=== PATIENT | female | born 1995 | race Caucasian/White ===

== ENCOUNTER → 2018-02-28 18:03 | Outpatient (CLI) | payer MEDICAID, SELFPAY ==
[2018-02-28 20:03] LABS: Chlamydia Trachomatis by PCR Negative (Negative); Neisserai gonorrhoeae by PCR Negative (Negative); Probe Check PASS; Sample Adequacy Control PASS; Specimen Processing Control PASS
== END ==
PROVIDERS: Visit Provider Obstetrics & Gynecology
DX: Z11.3 Encounter for screening for infections with a predominantly sexual mode of transmission (principal); Z34.81 Encounter for supervision of other normal pregnancy, first trimester
CPT/HCPCS: 87491; 87591

== ENCOUNTER → 2018-04-10 16:53 | Outpatient (CLI) | payer MEDICAID, SELFPAY ==
[2018-04-10 17:35] LABS: Color, Urine Yellow (Yellow); Glucose, Dipstick Normal (Normal); Ketone-Dipstick 5 mg/dl (Negative); Leukocyte Esterase-Dipstick 25 /ul (Negative); Nitrite-Dipstick Negative (Negative); Occult Blood-Urine Negative /ul (Negative); Protein-Dipstick 15 mg/dl (Negative); Urine Bilirubin Dipstick Negative (Negative); Urine Clarity Clear (Clear); Urine Urobilinogen Normal (Normal)
[2018-04-10 17:39] LABS: Absolute Lymphocyte Count 2.24 X10^3/ul (0.83-4.51); Absolute Neutrophil Count 11.8 X10^3/uL (2.0-7.7); Basophil# 0.01 X10^3/uL; Basophil% 0.1 % (0-1); Eosinophil# 0.11 X10^3/uL; Eosinophils% 0.7 % (0-5); Hematocrit 42.4 % (37-47); Hemoglobin 14.8 g/dl (12.0-15.0); Lymphocyte # 2.24 X10^3/ul (4.0); Lymphocyte % 14.7 % (19-41); Mean Corp Hgb Conc 34.9 g/gl (32-36); Mean Corpuscular Hgb 31.8 pg (27.0-32.0); Mean Corpuscular Volume 91.2 fL (81-99); Mean Platelet Vol. 9.4 fl (6.2-12.0); Monocyte# 1.04 X10^3/uL; Monocyte% 6.8 % (0-10); Neutrophil # 11.82 X10^3/uL (2.7-7.7); Neutrophil % 77.2 % (47-70); Platelet Count 302 K/mm3 (150-450); RBC Distribution Width CV 11.6 % (11.6-14.6); RBC Distribution Width SD 38.4 fl (35.1-43.9); Red Blood Count 4.65 M/mm3 (4.2-5.4); White Blood Count 15.3 K/mm3 (4.4-11.0)
[2018-04-10 17:44] LABS: COTININE Drug Screen Positive (<200 ng/mL)
[2018-04-10 17:45] LABS: POSITIVE COUNT NO; POSITIVE DIFFERENTIAL NO; POSITIVE MORPHOLOGY NO
[2018-04-10 17:58] LABS: Thyroid Stim Hormone (TSH) 0.48 uIU/mL (0.358-3.74)
[2018-04-10 17:59] LABS: Amphetamine Urine VISTA NEGATIVE (<1000 ng/mL); Barbiturate Urine VISTA NEGATIVE (< 200 ng/mL); Benzodiazepine Urine VISTA NEGATIVE (< 200 ng/mL); Cocaine Urine VISTA NEGATIVE (< 300 ng/mL); Ecstacy Urine VISTA NEGATIVE (< 500 ng/mL); Methadone Urine VISTA NEGATIVE (< 300 ng/mL); PCP Urine VISTA NEGATIVE (< 25 ng/mL); THC Urine VISTA NEGATIVE (< 50 ng/mL); Vista UDS pH Range 5
[2018-04-10 18:39] LABS: HIV - WCH Non-Reactive (Nonreactive); Rubella IgG 188.8 IU/mL
[2018-04-12 11:59] LABS: HEPATITIS B SURFACE AG Negative (Negative); Hep C Antibodies 0.1 s/co ratio (0.0-0.9)
[2018-04-14 01:01] LABS: Prenatal RPR NONREACTIVE (NONREACTIVE)
== END ==
PROVIDERS: Visit Provider Obstetrics & Gynecology
DX: Z34.82 Encounter for supervision of other normal pregnancy, second trimester (principal)
CPT/HCPCS: 36415; 80307; 81002; 84443; 85025; 86703; 86762; 86803; 87340

== ENCOUNTER → 2018-07-31 15:36 | Outpatient (CLI) | payer MEDICAID, SELFPAY ==
[2017-05-24 09:50] VITALS: BMI 23.1
[2018-07-31 17:02] LABS: Hematocrit 42.8 % (37-47); Hemoglobin 14.9 g/dl (12.0-15.0); Mean Corp Hgb Conc 34.8 g/gl (32-36); Mean Corpuscular Hgb 32.3 pg (27.0-32.0); Mean Corpuscular Volume 92.8 fL (81-99); Mean Platelet Vol. 9.8 fl (6.2-12.0); Platelet Count 271 K/mm3 (150-450); Red Blood Count 4.61 M/mm3 (4.2-5.4); White Blood Count 18.9 K/mm3 (4.4-11.0)
[2018-07-31 17:03] LABS: Scan Indicated on CBC? Y/N NO
[2018-07-31 17:15] LABS: Glucose Challenge Gest 1H 50g 87 mg/dL (70-140)
== END ==
PROVIDERS: PCP Student in an Organized Health Care Education/Training Program; Visit Provider Obstetrics & Gynecology
DX: Z34.83 Encounter for supervision of other normal pregnancy, third trimester (principal)
CPT/HCPCS: 36415; 82950; 85027

== ENCOUNTER → 2018-09-14 09:40 | Outpatient (CLI) | payer MEDICAID, SELFPAY ==
[2017-05-24 09:50] VITALS: BMI 23.1
[2018-09-14 12:49] LABS: Hematocrit 45.8 % (37-47); Hemoglobin 15.3 g/dl (12.0-15.0); Mean Corp Hgb Conc 33.4 g/gl (32-36); Mean Corpuscular Hgb 31.4 pg (27.0-32.0); Mean Corpuscular Volume 93.9 fL (81-99); Mean Platelet Vol. 10.5 fl (6.2-12.0); Platelet Count 248 K/mm3 (150-450); RBC Distribution Width CV 12.5 % (11.6-14.6); RBC Distribution Width SD 42.2 fl (35.1-43.9); Red Blood Count 4.88 M/mm3 (4.2-5.4); White Blood Count 16.7 K/mm3 (4.4-11.0)
[2018-09-14 12:51] LABS: Scan Indicated on CBC? Y/N NO
[2018-09-14 12:55] LABS: Protein, Urine (Random) 15.4 mg/dL (<11.9)
[2018-09-14 13:04] LABS: ALB/GLOB Ratio 0.8 RATIO (0.9-2.4); AST(SGOT) 19 U/L (15-37); Alanine Aminotransfer ALT/SGPT 19 U/L (13-56); Albumin, Serum 3.1 g/dL (3.2-5.0); Alkaline Phosphatase 198 U/L (45-117); Anion Gap 10 (5-15); BUN 10 mg/dL (7-18); BUN/Creat Ratio 15.6 RATIO (10-20); Calcium,Total 8.9 mg/dL (8.5-10.1); Chloride 107 mmol/L (98-107); Creatinine, Serum 0.64 mg/dL (0.55-1.02); EST Glomerular Filtration Rate 124 mL/min (>60); Est Glom Filt Rate - Afr Amer 150 mL/min (>60); Globulin 4.1 g/dL (2.2-4.2); Glucose 91 mg/dL (74-106); LDH 226 U/L (84-246); Potassium 3.7 mmol/L (3.5-5.1); Protein, Total 7.2 g/dL (6.4-8.2); Sodium Level 137 mmol/L (136-145); Uric Acid 6.2 mg/dL (2.6-6.0)
--- OUTSIDE RECORDS SUMMARY | 2018-11-18 23:26 | XMS RPT_ITS ---
:1995 Author Organization OHIP Care Team Providers Name Role Phone Janell Zuñiga Attending Unavailable Janell Zuñiga Attending Unavailable Janell Zuñiga Referring Unavailable Janell Zuñiga Attending Unavailable Zara Summer Attending Unavailable PROBLEMS PROBLEMS DATE TYPE CONDITION / CODE ATTENDING STATUS SOURCE 09/14/2018 Unknown Z36.85 - Encounter Kulwinder Zuñiga for [facility] screening for Hospital Streptococcus B / Repository Z36.85(ICD-10) 09/14/2018 Unknown R03.0 - Elevated Kulwinder Zuñiga blood-pressure [facility] reading, without Hospital diagnosis of Repository hypertension / R03.0(ICD-10) 04/10/2018 Unknown Z34.82 - Encounter Kulwinder Zuñiga for supervision of [facility] other normal Hospital , second Repository trimester / Z34.82(ICD-10) PROCEDURES PROCEDURES No Procedure Records FoundRESULTS RESULTS CBC-COMPLETE BLOOD CNT Collected: 09/14/2018 Status: F Source: ROX NO DIFF 9:42 AM [facility] HOSPITAL REPOSITORY TYPE CODE TESTS RESULT OUT OF RANGE REFERENCE UNITS LAB L100.1000 4.4-11.0 K/mm3 High WBC 16.7 LAB L100.1200 4.2-5.4 M/mm3 Normal RBC 4.88 LAB L100.1300 12.0-15.0 g/dl High HGB 15.3 LAB L100.1400 37-47 % Normal HCT 45.8 LAB L100.1500 81-99 fL Normal MCV 93.9 LAB L100.1600 27.0-32.0 pg Normal MCH 31.4 LAB L100.1700 32-36 g/gl Normal MCHC 33.4 LAB L100.1810 11.6-14.6 % Normal RDW CV 12.5 LAB L100.1820 35.1-43.9 fl Normal RDW SD 42.2 LAB L100.1900 150-450 K/mm3 Normal PLT 248 LAB L100.2000 6.2-12.0 fl Normal MPV 10.5 Performed By: #### L100.0500 #### [facility] [place], [address] COMPREHENSIVE METABOLIC Collected: 09/14/2018 Status: F Source: [facility] 9:42 AM [facility] REPOSITORY Order Comment: Comments: RANDOM Serial Specimen #1, #2 or #3? 1 TYPE CODE TESTS RESULT OUT OF RANGE REFERENCE UNITS LAB L501.0100 74-106 mg/dL Normal GLU 91 Result Comment: Please note revised GLUCOSE reference range effective 2017. LAB L501.1000 7-18 mg/dL Normal BUN 10 LAB L501.1100 0.55-1.02 mg/dL Normal CREAT,SERUM 0.64 Result Comment: The validity of the calculated GFR AND GFRAA in patients over 70 years has not been determined. Clinical correlation is essential. LAB L501.1110 >60 mL/min Normal EST GFR 124 Result Comment: Non- GFR Calc LAB L501.1115 >60 mL/min Normal EST GFR - AA 150 Result Comment: GFR Calc LAB L501.1300 10-20 RATIO Normal BUN/CRE 15.6 LAB L501.1500 6.4-8.2 g/dL T Normal PROT 7.2 LAB L501.1800 3.2-5.0 g/dL Low ALB 3.1 LAB L501.1950 2.2-4.2 g/dL Normal GLOB 4.1 LAB L501.2000 0.9-2.4 RATIO Low A/G 0.8 LAB L501.2200 8.5-10.1 mg/dL CA Normal 8.9 LAB L501.4100 15-37 U/L Normal AST 19 LAB L501.4305 45-117 U/L High ALK P 198 LAB L501.4405 13-56 U/L Normal ALT 19 LAB L501.4600 0.20-1.00 mg/dL T Normal BILI 0.30 LAB L501.5300 136-145 mmol/L NA Normal 137 LAB L501.5600 3.5-5.1 mmol/L K Normal 3.7 LAB L501.5900 98-107 mmol/L CL Normal 107 LAB L501.6100 21.0-32.0 mmol/L Low CO2 20.0 LAB L501.6200 5-15 Normal GAP 10 Performed By: #### L500.4050, L501.1400, L504.2610 #### [facility] [address] [facility] [address] URIC ACID Collected: 09/14/2018 Status: F Source: [place] 9:42 AM [facility] REPOSITORY Order Comment: Comments: RANDOM Serial Specimen #1, #2 or #3? 1 TYPE CODE TESTS RESULT OUT OF RANGE REFERENCE UNITS LAB L501.1400 2.6-6.0 mg/dL High URIC 6.2 Result Comment: The drugs N-Acetylcysteine and Metamizole may falsely depress this assay. Performed By: #### L500.4050, L501.1400, L504.2610 #### [facility] [address] [facility] [address] LDH Collected: 09/14/2018 Status: F Source: [place] 9:42 AM [facility] REPOSITORY Order Comment: Comments: RANDOM Serial Specimen #1, #2 or #3? 1 TYPE CODE TESTS RESULT OUT OF RANGE REFERENCE UNITS LAB L504.2610 84-246 U/L Normal LDH 226 Performed By: #### L500.4050, L501.1400, L504.2610 #### [facility] [address] [facility] [address] CREATININE, URINE Collected: 09/14/2018 Status: F Source: ROX (RANDOM) 9:30 AM [facility] REPOSITORY TYPE CODE TESTS RESULT OUT OF RANGE REFERENCE UNITS LAB L501.1200 NO RANGE EST. mg/dL Normal UR CREAT 104.00 Performed By: #### L501.1200, L501.1930 #### [facility] [address] [place], [address] PROTEIN, URINE Collected: 09/14/2018 Status: F Source: ROX (RANDOM) 9:30 AM [facility] REPOSITORY TYPE CODE TESTS RESULT OUT OF RANGE REFERENCE UNITS LAB L501.1930 <11.9 mg/dL High 15.4 PROTEIN,UR.R AN. Performed By: #### L501.1200, L501.1930 #### [facility] [address] [place], [address] Observed: 09/14/2018 Status: F Source: ROX CULTURE, GROUP B 9:15 AM [facility] STREPTOCOCCUS REPOSITORY Comments: VAGINAL/RECTAL KAYLYNN Culture Group B Beta Streptococcus is not isolated. Performed By: #### M100.1800 #### [facility] [address] [place], [address] CBC-COMPLETE BLOOD CNT Collected: 07/31/2018 Status: F Source: ROX NO DIFF 3:45 PM [facility] REPOSITORY TYPE CODE TESTS RESULT OUT OF RANGE REFERENCE UNITS LAB L100.1000 4.4-11.0 K/mm3 High WBC 18.9 LAB L100.1200 4.2-5.4 M/mm3 Normal RBC 4.61 LAB L100.1300 12.0-15.0 g/dl Normal HGB 14.9 LAB L100.1400 37-47 % Normal HCT 42.8 LAB L100.1500 81-99 fL Normal MCV 92.8 LAB L100.1600 27.0-32.0 pg High MCH 32.3 LAB L100.1700 32-36 g/gl Normal MCHC 34.8 LAB L100.1810 11.6-14.6 % Normal RDW CV 12.0 LAB L100.1820 35.1-43.9 fl Normal RDW SD 40.0 LAB L100.1900 150-450 K/mm3 Normal PLT 271 LAB L100.2000 6.2-12.0 fl Normal MPV 9.8 Performed By: #### L100.0500 #### [facility] [address] [place], [address] GLUCOSE CHALLENGE GEST Collected: 07/31/2018 Status: F Source: ROX 1H 50G 3:45 PM [facility] REPOSITORY TYPE CODE TESTS RESULT OUT OF RANGE REFERENCE UNITS LAB L501.0250 70-140 mg/dL Normal GLU GEST 87 50g 1H Performed By: #### L501.0250 #### [facility] [address] [place] [place], [address] URINE DRUG SCREEN Collected: 04/10/2018 Status: F Source: ROX (VISTA) 4:57 PM [facility] REPOSITORY Order Comment: List of Drugs Taken or Suspected? UNK TYPE CODE TESTS RESULT OUT OF RANGE REFERENCE UNITS LAB L505.0075 TO BE Normal CONFIRMED Result Comment: CONFIRMATORY TESTING FOR ALL POSITIVE URINE DRUG SCREEN RESULTS WILL ONLY BE SENT OUT UPON PHYSICIAN ORDER. VISTA Urine Drug Screen methods provide only preliminary analytical test results. A more specific alternate chemical method must be used in order to obtain a confirmed analytical result. Gas chromatography/mass spectrometery (GC/MS) is the preferred confirmatory method. Clinical consideration and professional judgement should be applied to any drug of abuse test result, particularly when preliminary positive results are used. URINE TCA TESTING MUST BE ORDERED SEPARATELY. USE TEST MNEMONIC: [facility] LAB L505.5005 VISTA UDS PH 5 Normal LAB L505.5015 <1000 ng/mL AMPHETAMINES Normal NEGATIVE LAB L505.5025 < 200 ng/mL BARBITIURATES Normal NEGATIVE LAB L505.5035 < 200 ng/mL BENZODIAZIPINE Normal NEGATIVE LAB L505.5045 < 300 ng/mL COCAINE Normal NEGATIVE LAB L505.5055 < 500 ng/mL ECSTACY Normal NEGATIVE LAB L505.5065 < 300 ng/mL METHADONE Normal NEGATIVE LAB L505.5075 < 300 ng/mL OPIATES Normal NEGATIVE LAB L505.5085 < 25 ng/mL PCP Normal NEGATIVE LAB L505.5095 < 50 ng/mL THC Normal NEGATIVE Performed By: #### L505.5000, L505.6240 #### [facility] [address] [place], [place], [address] NICOTINE URINE DRUG Collected: 04/10/2018 Status: F Source: ROX SCREEN 4:57 PM [facility] REPOSITORY Order Comment: List of Drugs Taken or Suspected? UNK TYPE CODE TESTS RESULT OUT OF RANGE REFERENCE UNITS LAB L505.6250 TO BE Normal CONFIRMED Result Comment: CONFIRMATORY TESTING FOR ALL POSITIVE URINE DRUG SCREEN RESULTS WILL ONLY BE SENT OUT UPON PHYSICIAN ORDER. The results of Urine Drug Screen methods provide only preliminary analytical test results. A more specific alternate chemical method must be used in order to obtain a confirmed analytical result. Gas chromatography/mass spectrometery (GC/MS) is the preferred confirmatory method. Clinical consideration and professional judgement should be applied to any drug of abuse test result, particularly when preliminary positive results are used. LAB L505.6270 <200 ng/mL High COT DRG Positive SCREEN Result Comment: Cotinine is the first-stage metabolite of Nicotine. Performed By: #### L505.5000, L505.6240 #### [facility] [address] [place], [place], [address] URINALYSIS, ROUTINE Collected: 04/10/2018 Status: F Source: ROX (DIPSTICK) 4:57 PM [facility] REPOSITORY Order Comment: How was Urine Obtained? Urine, Random TYPE CODE TESTS RESULT OUT OF RANGE REFERENCE UNITS LAB L400.3000 Yellow COLOR Normal Yellow LAB L400.3050 Clear Normal CLARITY Clear LAB L400.3200 Normal mg/dl Normal GLUCOSE, UR Normal LAB L400.3300 Negative mg/dL Normal BILIRUBIN URINE Negative LAB L400.3400 Negative mg/dl High 5 KETONE UR LAB L400.3465 1.002-1.030 Normal SP.GR. DIPSTX 1.020 LAB L400.3550 5.0 - 8.0 pH UR Normal 6.0 LAB L400.3600 Negative mg/dl High PROT 15 DIPSTX LAB L400.3700 Normal mg/dl Normal UROBILI Normal LAB L400.3750 Negative Normal NITRITE UR Negative LAB L400.3780 Negative /ul Normal OCCULT BLOOD-UR Negative LAB L400.3800 Negative /ul High LEUK 25 ESTERASE Performed By: #### L400.2010 #### [facility] [address] [place], [place], [address] CBC W/DIFF, AUTOMATED Collected: 04/10/2018 Status: F Source: [place] 4:57 PM [facility] REPOSITORY TYPE CODE TESTS RESULT OUT OF RANGE REFERENCE UNITS LAB L100.1000 4.4-11.0 K/mm3 High WBC 15.3 LAB L100.1200 4.2-5.4 M/mm3 Normal RBC 4.65 LAB L100.1300 12.0-15.0 g/dl Normal HGB 14.8 LAB L100.1400 37-47 % Normal HCT 42.4 LAB L100.1500 81-99 fL Normal MCV 91.2 LAB L100.1600 27.0-32.0 pg Normal MCH 31.8 LAB L100.1700 32-36 g/gl Normal MCHC 34.9 LAB L100.1810 11.6-14.6 % Normal RDW CV 11.6 LAB L100.1820 35.1-43.9 fl Normal RDW SD 38.4 LAB L100.1900 150-450 K/mm3 Normal PLT 302 LAB L100.2000 6.2-12.0 fl Normal MPV 9.4 LAB L100.2100 47-70 % High NEUT% 77.2 LAB L100.2200 19-41 % Low LY% 14.7 LAB L100.2300 0-10 % Normal MONO% 6.8 LAB L100.2400 0-5 % Normal EO% 0.7 LAB L100.2500 0-1 % Normal BASO% 0.1 LAB L100.2550 0.0-0.9 % Normal IM GRAN % 0.500 Result Comment: IG% - Immature Granulocytes (promyelocytes, myelocytes and metamyelocytes) > 1% indicates that a LEFT SHIFT is Present. LAB L100.2620 2.0-7.7 X10 3/uL High Absolute Neut 11.8 LAB L100.2720 0.83-4.51 X10 3/ul Normal Absolute Lymph 2.24 Performed By: #### L100.0100 #### [facility] [address] [place], [address] THYROID STIM HORMONE Collected: 04/10/2018 Status: F Source: ROX (TSH) 4:57 PM [facility] REPOSITORY TYPE CODE TESTS RESULT OUT OF RANGE REFERENCE UNITS LAB L501.9520 0.358-3.74 uIU/mL Normal TSH 0.48 Performed By: #### L501.9520 #### [facility] [address] [place], [address] RUBELLA IGG Collected: 04/10/2018 Status: F Source: ROX 4:57 PM [facility] REPOSITORY TYPE CODE TESTS RESULT OUT OF RANGE REFERENCE UNITS LAB L509.4000 IU/mL Normal Rubella IgG 188.8 Result Comment: Antibody results Interpretation of Immune Status < 5 IU/ml Presumed Non-immune 5 - < 10 IU/ml Equivocal > or = 10 IU/ml Presumed Immune Performed By: #### L509.4000, L3890.6005 #### [facility] [address], [address] HIV - [facility] Collected: 04/10/2018 Status: F Source: [place] 4:57 PM [facility] REPOSITORY TYPE CODE TESTS RESULT OUT OF RANGE REFERENCE UNITS LAB L3890.6005 Nonreactive Normal HIV - [facility] Non-Reactive Performed By: #### L509.4000, L3890.6005 #### [facility] [address] [place], [address] T AND S-NO Collected: 04/10/2018 Status: F Source: ROX CHARGE W/PNP 4:57 PM [facility] REPOSITORY Order Comment: Reason for Type AND Screen/Red Cells: Surgery? N TYPE CODE TESTS RESULT OUT OF RANGE REFERENCE UNITS LAB B10.0800 A Normal BLOOD POSITIVE TYPE GEL LAB B100.4050 Normal Ab SCREEN NEGATIVE GEL Performed By: #### B100.7550 #### [facility] [address] [place], [address] HEPATITIS B SURFACE Collected: 04/10/2018 Status: F Source: ROX AG 4:57 PM [facility] REPOSITORY TYPE CODE TESTS RESULT OUT OF RANGE REFERENCE UNITS LAB L3100.0400 Negative Normal HB Negative SURF AG Result Comment: Performed at: - [facility], [place], [place] [id number] Electrical Instrument Technician: Donnie Lindsey PhD, Phone: [phone] Performed By: #### L3100.0390, L3100.0625 #### [facility] (refer to report for specific site) refer to report for address and phone number HEPATITIS C ANTIBODIES Collected: 04/10/2018 Status: F Source: [place] 4:57 PM [facility] REPOSITORY TYPE CODE TESTS RESULT OUT OF RANGE REFERENCE UNITS LAB L3100.0650 0.0-0.9 s/co ratio Normal HEP C AB 0.1 Result Comment: Negative: < 0.8 Indeterminate: 0.8 - 0.9 Positive: > 0.9 The CDC recommends that a positive HCV antibody result be followed up with a HCV Nucleic Acid Amplification test ([id number]). Performed By: #### L3100.0390, L3100.0625 #### [facility] (refer to report for specific site) refer to report for address and phone number RPR Collected: 04/10/2018 Status: F Source: [place] 4:57 PM [facility] REPOSITORY TYPE CODE TESTS RESULT OUT OF REFERENCE UNITS RANGE LAB L700.5100 NONREACTIVE Normal RPR NONREACTIVE Performed By: #### L700.5100 #### [facility] [address] [place], [place], [address] CT/NG [facility] BY PCR Collected: 02/28/2018 Status: F Source: [place] 2:48 PM [facility] REPOSITORY TYPE CODE TESTS RESULT OUT OF RANGE REFERENCE UNITS LAB L8200.2100 Negative Normal Chlam Negative Trac PCR LAB L8200.2200 Negative Normal NG by Negative PCR Performed By: #### L8200.2000 #### [facility] [address] [place], [place], [address] ALLERGIES ALLERGIES DATE TYPE / CODE NAME / CODE REACTION SEVERITY SOURCE 05/24/2017 Drug No Known Unknown [facility] Allergy/4160 Allergies/F00 Hospital [address]135(SNOMED [id number](RXNOR Repository CT) M) ENCOUNTERS ENCOUNTERS ADMIT/DISCHARGE ACCOUNT ADMITTING ENCOUNTER LOCATION SOURCE NUMBER CLASS 09/14/2018 [id number] Ambulatory [place] 0 [facility] ing:WOBLAB Repository 07/31/2018 [id number] [facility] [place] 4 [facility] ing:WOBLAB Repository 04/10/2018 [id number] Ambulatory [place] 4 [facility] ing:WOBLAB Repository 02/28/2018 [id number] Ambulatory [place] 1 [facility] ing:LABSPEC Repository PAYERS PAYERS ENCOUNTER GUARANTOR PAYER SUBSCRIBER SOURCE 09/14/2018 Katlynd Primary [facility] [place] [id number] Insurance:CARESOURCEP SummersDOB[facility] Number: [id number] [id number] Repository [address]Mzu: [phone]) Date:2018-09-14P O [phone] () [address]ATTN: [place] [address]HD: 09/14/2018 Secondary NOT GIVENUNK [place] Insurance:SELF PAY [facility] Number: Effective Repository Date:2018-09-14 07/31/2018 Katlynd Primary Katlynd [place] [id number] Insurance:CARESOURCEP SummersDOB: [facility] Number: [id number], [place] [id number] Repository [address]Ssa: [phone] Date:2018-07-31P O [phone] () [address]ATTN: [place] [address]KJ: 07/31/2018 Secondary NOT GIVENUNK [place] Insurance:SELF PAY [facility] Number: Effective Repository Date:2018-07-31 04/10/2018 Katlynd Primary Katlynd [place] [id number] Insurance:CARESOURCEP SummersDOB: [facility] Number: [id number], [place] [id number] Repository [address]Eiw: [phone] Date:2018-04-10P O [phone] () [address]ATTN: [place] [address]LJ: 04/10/2018 Secondary NOT GIVENUNK [place] Insurance:SELF PAY [facility] Effective Repository Date:2018-04-10 02/28/2018 Ariellelynd Primary Manisha Gagnon [id number] Insurance:CAREURC SummerMOOB: [facility] danielito Number: [id number] [id number] Repository [address]Emk: [phone] Date:2018-02-28P O [phone] () [address]ATTN: [place] [address]MH: 02/28/2018 Secondary NOT GIVENUNK [place] Insurance:SELF PAY [facility] Number: Effective Repository Date:2018-02-28
== END ==
PROVIDERS: Visit Provider Obstetrics & Gynecology
DX: R03.0 Elevated blood-pressure reading, without diagnosis of hypertension (principal); Z36.85 Encounter for antenatal screening for Streptococcus B
CPT/HCPCS: 36415; 80053; 82570; 83615; 84156; 84550; 85027; 87081

== ENCOUNTER 2018-10-06 19:05 | Inpatient (IN) | payer MEDICAID, SELFPAY ==
[2018-10-06] MEDS: Lactated Ringers 1,000 ML 50 ML IV (19:30)
[2018-10-06 19:46] VITALS: BMI 36.3
[2018-10-06] MEDS: Oxytocin 30 units/NS 500 ml 30 UNITS/500 ML IV.SOLN IV (19:58)
[2018-10-06 20:13] LABS: Hematocrit 44.5 % (37-47); Hemoglobin 15.2 g/dl (12.0-15.0); Mean Corp Hgb Conc 34.2 g/gl (32-36); Mean Corpuscular Hgb 31.7 pg (27.0-32.0); Mean Corpuscular Volume 92.7 fL (81-99); Mean Platelet Vol. 10.3 fl (6.2-12.0); Platelet Count 244 K/mm3 (150-450); RBC Distribution Width CV 12.8 % (11.6-14.6); White Blood Count 16.1 K/mm3 (4.4-11.0)
[2018-10-06 20:14] LABS: Scan Indicated on CBC? Y/N NO
--- NOTE | 2018-10-06 20:56 | HP.PCM_ITS ---
- Problem List (1) 39 weeks gestation of Status: Acute (2) Oligohydramnios Status: Acute Qualifiers: Fetus number: single or unspecified fetus Trimester: third trimester Qualified Code(s): O41.03X0 - Oligohydramnios, third trimester, not applicable or unspecified History Date of Admission: 10/06/18 Final KALEE: 10/07/18 Final KALEE Source: [place] <20 weeks Gestational age: 39 Weeks and 6 Days History of this : This is a 22 year-old, G [], P [], at 39 weeks gestational age. Medical History: Medical History (Last Updated 10/06/18 @ 20:57 by Janell Zuñiga MD) Anxiety F41.9 Depression F32.9 Allergies No Known Allergies Allergy (Verified 10/06/18 19:47) Home Medications: Home Medications Tablet 1 tab PO DAILY 10/06/18 Multivitamin 1 tab PO daily; Acetaminophen otc prn Smoking Status: Light Smoker (<10/day) Alcohol: None Number of Fetus(es): 1 Heart Tracin, moderate ariability, + accelerations, no decelerations TOCO Analysis: 0 History Past Pregnancies: Past Pregnancies Delivery Date Name GA/Weeks Outcome Route Weight Gender Labor Length Anesthesia Delivery Location Provider FOB Labs: Mom's Labs & Results 10/06/18 10/06/18 19:30 19:30 WBC 16.1 H RBC 4.80 Hgb 15.2 H Hct 44.5 MCV 92.7 MCH 31.7 MCHC 34.2 RDW 12.8 RDW Differential 43.0 Plt Count 244 MPV 10.3 Blood Type Pending Antibody Screen Pending Course Did the patient receive Yes care? Labs Blood Type: A RH: POSITIVE RPR/VDRL/Syphilis Nonreactive Rubella status Immune HbSAg Negative Date Done: 04/10/18 Chlamydia Negative Gonorrhea Negative HIV/AIDS Non-Reactive Group B Strep: Negative Other Lab Procedures/Results/ urine positive for nicotine 04/10/18 Comments: Current Obstetrical History Gestational Diabetes No Incompetent Cervix No Infertility No IUGR No Macrosomia No Hypertension/Pre-eclampsia No Placenta Previa/Abruption No PTL/PROM No Uterine anomaly No Oligohydramnios Yes Polyhydramnios No Multiple gestation No Past Medical History Asthma No Diabetes No Hypertension No Heart disease No Mitral valve prolapse No Neurologic/Seizure disorder/ No Migraines Kidney disease No Liver disease No Varicosities No Clotting disorders/Hx of DVT No Thyroid Dysfunction No Other medical diseases No Psychiatric disorders No Major trauma No Abnormal PAP smear No Sleep apnea No Mammogram in the last 2 years No Medications Taken During Dose/Freq.: [Tylenol] 500 mg PO x2 Last Date/Time of Medication 10/06/18 @ 0100 Taken: [Tylenol] Reason for taking medication [ pt states taking medication for achs in back and Tylenol] shoulder Social History Marital Status: SINGLE Alleged father Kasi Clancy Hx Smoking Yes Smoking Status Light Smoker (<10/day) Expected Infant Delivery Method: Spontaneous Vaginal Number of Visits: 8 Review of Systems Eyes: Denies: Blurred vision, Vision Change Cardiovascular: Denies: Chest Pain, Edema Gastrointestinal: Denies: Abdominal Pain, Nausea, Vomiting Gynecological: Denies: Vaginal bleeding Neurological: Denies: Headaches Physical Exam Vitals: AVSS General: Alert, Oriented x3, No apparent distress HEENT: Atraumatic, Normocephalic Cardiovascular: Regular rate, Regular Rhythm, Normal S1, Normal S2 Lungs: Clear to auscultation, Normal air movement Abdomen: Soft, Non Tender, Gravid Extremities:: Other - trace LE edema Neurological: Neuro grossly intact PUBLIC ADDRESS SYSTEM OPERATOR: Normal external genitalia Presentation: Cephalic Cervix Dilation (cm): 2.5 - per SRINATH [place]: -3 Effacement (%): 70 Assessment/Plan All Active Problems 39 weeks gestation of (Acute) Oligohydramnios (Acute) This is a 22 year-old, G [1] at 39 weeks gestational age with oligohydramnios, Cat I FHR -Few borderline elevated BPs, patient asx - will continue to monitor -Pitocin for induction -Consents signed -Maternal and statuses reassuring
[2018-10-06 22:15] LABS: Amphetamine Urine VISTA NEGATIVE (<1000 ng/mL); Barbiturate Urine VISTA NEGATIVE (< 200 ng/mL); Benzodiazepine Urine VISTA NEGATIVE (< 200 ng/mL); Cocaine Urine VISTA NEGATIVE (< 300 ng/mL); Ecstacy Urine VISTA NEGATIVE (< 500 ng/mL); Methadone Urine VISTA NEGATIVE (< 300 ng/mL); PCP Urine VISTA NEGATIVE (< 25 ng/mL); THC Urine VISTA NEGATIVE (< 50 ng/mL); Vista UDS pH Range 6
--- NOTE | 2018-10-07 05:30 | PCM.PN.BLA ---
Progress Note LABOR PROGRESS NOTE Manisha has no complaints. AVSS GEN - NAD, AAO x 3 FHR 120, moderate variability, + accelerations, no decelerations TOCO 2/10 min SVE 4/70/-2 A/P: 22yo G1 @ 40wga, IOL for oligohydramnios, Cat I FHR -Continue pitocin as tolerated by mother and fetus -Amniotomy performed with clear fluid @ 0526h, IUPC and ISE placed -Maternal and statuses reassuring
[2018-10-07] MEDS: Nalbuphine 10 MG/ML Ampul IV (06:22)
[2018-10-07] MEDS: Lactated Ringers 1,000 ML 50 ML IV ×3 (07:07→20:50)
[2018-10-07] MEDS: fentaNYL-bupivacaine (epidural) 100 ML BAG EPIDURAL ×4 (07:37→22:49)
--- NOTE | 2018-10-07 09:30 | PCM.PN.BLA ---
Progress Note LABOR PROGRESS NOTE No complanits. Manisha is comfortable with the epidural, denies pain. AVSS GEN - NAD, AAO x 3 FHR 115, moderate variability, + accelerations, no decelerations SVE 6/80/-1 per RN exam TOCO 4/10 min A/P: 22yo G1 @ 39 5/7wga, IOL for oligohydramnios, Cat I FHR -Continue pitocin as tolerated by mother and fetus -Maternal and statuses reassuring
[2018-10-07] MEDS: Acetaminophen 325 MG Tablet PO (20:43)
--- NOTE | 2018-10-07 21:47 | PCM.PN.BLA ---
Progress Note LABOR PROGRESS NOTE Reports more cramping and pain with contractions. Tm 100.7 VSS GEN - NAD, AAO x 3 FHR 150, moderate variability, no accelerations or deceleration TOCO 3-4/10 min SVE 8.5/80/-1 per RN exam A/P: 22yo G1 @ 39 5/7wga, IOL for oligohydramnios, Cat I FHR - maternal fever -Maternal fever - no other signs of infection present. IV Gentamicin, Ampicillin started. -Continue pitocin as tolerated by mother and fetus - status overall reassuring
--- NOTE | 2018-10-07 22:18 | PCM.PN.BLA ---
Progress Note LABOR PROGRESS NOTE Denies chills, nausea, vomiting. She feels more comfortable after redosed by Anesthesiologist. AVSS GEN - NAD, AAO x3 FHR 160, moderate variability, + accelerations, no decelerations TOCO 4/10 min SVE 8.5/90/+1 with caput and anterior cervical edema to 75% effacement A/P: 22yo G1 @ 40wga, IOL for oligohydramnios on pitocin with maternal fever, Cat I FHR -FHR baseline rising - IV Gentamicin, Ampicillin started -Unclear if same exam as prior given different examiners. -Will give 25mg IV Benadryl for cervical edema -Maternal and statuses overall reassuring
[2018-10-07] MEDS: DiphenhydrAMINE 50 MG/ML Syringe 25 MG IV (22:49)
[2018-10-08] VITALS (23 sets, daily range): BP systolic 103–143; BP diastolic 50–111; PULSE 98–122; RESP 11–26; TEMP 36.4–37.1; O2SAT 94–100
[2018-10-08] MEDS: Lactated Ringers 1,000 ML 50 ML IV (01:59)
--- NOTE | 2018-10-08 02:56 | PCM.PN.BLA ---
Progress Note LABOR PROGRESS NOTE Informed by SRINATH Cheek abnormality in cervical exam. On arrival patient reports some discomfort in pubic area. No other complaints. Tm 101, Tc 98.3 VSS GEN - NAD, AAO x 3 FHR 155, minimal variability, +10 x 10 accelerations, no decelerations. On strip review prior prolonged decelerations followed by late decelerations now resolved. TOCO 4/10 min SVE 8.5/90/1 with significant caput to +3 A/P: 22 yo G1 @ 40 1/7wga with arrest of descent, Cat II FHR and maternal fever on antibiotics. -Strip review performed. Vibroacoustic stimulation performed with subsequent return to moderate variability, Cat I FHR -Reviewed with patient and partner findings -- given cervical exam unchanged from prior at approximately I advise proceeding with section at this time for arrest of dilation. Reviewed with them indications. Discussed how performed and risks including pain, bleeding, hemorrhage possibly requiring dilation and curettage or hysterectomy, infection, injury to surrounding organs as well as increased risk for some risks inherent to including VTE, scarring, need for further surgery, maternal . Discussed anticipated recovery and risk for TTN. Patient indicated desires for general anesthesia - reviewed maternal/ risks including maternal aspiration, uterine atony and respiratory depression. Patient and partner given opportunity to ask questions and questions answered to their satisfaction. Proceed as planned. Anesthesiology notified.
[2018-10-08] MEDS: Sodium Citrate/Citric Acid 30 ML UDC PO (03:19)
--- NOTE | 2018-10-08 03:50 | PLAC_PTH ---
PATIENT: ELIZABETH CASTILLO LOC: [facility] U#:[id number] AGE/SX: 22/F ROOM: [facility]021 RE10/06/[address]: Dr. Janell Ramirez MD : 1995 BED: 1 DIS: 10/11/2018 SPEC #: [id number] RECD: 10/08/18 07:38 STATUS: FEROZ ALVIN #: [id number] BLAIR: 10/08/18 03:[address]: Janell Mazariegos DEPT: SURGICAL PATHOLOGY RECD BY: Clifford Weaver Tissues: Placenta, NOS Procedures: Surgery Specimen Level V HEADER OPERATION: Primary section PRE-OP DIAGNOSIS: 40 1/7wga, arrest of dilation, maternal fever TISSUE SUBMITTED: Placenta MICROSCOPIC DIAGNOSIS Placenta: Placental disc - third trimester placenta (426 gm). - Moderate acute vasculitis of subamniotic blood vessels. Membranes - moderate to marked acute chorioamnionitis. Umbilical cord - three blood vessels and moderate to marked acute funisitis. ALIX:parul 10/10/18 MICROSCOPIC DESCRIPTION Slides are reviewed. GROSS DESCRIPTION SPECIMEN: PLACENTA / CLINICAL INFORMATION: A. Weight: 3.01 kg B. Gestational Age: 40 weeks C. Sex: Male PLACENTAL WEIGHT (POST FIXATION): 426 gm PLACENTAL DIMENSIONS: 22 x 16 x 3 cm PLACENTAL SHAPE: Usual ovoid PLACENTAL WEIGHT FOR GESTATIONAL AGE: Within 10-99th percentile MEMBRANES - Present A. Insertion: Marginal B. Site of rupture from edge: At edge of placental disc C. Color of membrane: Colon, mucoidy D. Abnormalities: None UMBILICAL CORD - Present A. Color: Colon-gonzalez B. Insertion: Paracentral C. Length: 21 cm D. Diameter: 1 cm E. Number of vessels: Three F. Abnormalities: None PLACENTAL DISC - Present A. Color of surface: Colon-gonzalez B. surface abnormalities: None C. Maternal cotyledons: Intact with minimal tears D. Attached retro placental clot: No clot E. Cut surface: Dark red and spongy F. Lesions: None G. Separate clot: Absent SECTIONS SUBMITTED: 1. Membrane roll 2. Cord, maternal end 3. Cord, end 4. Placental disc, and maternal surfaces 5. Placental disc, and maternal surfaces 6. Placental disc, and maternal surfaces SJ:parul 10/09/18 TC:2 CPT: 54298
--- NOTE | 2018-10-08 04:59 | PCM.OB.CSR ---
- Problem List (1) 39 weeks gestation of Status: Acute (2) Oligohydramnios Status: Acute Qualifiers: Fetus number: single or unspecified fetus Trimester: third trimester Qualified Code(s): O41.03X0 - Oligohydramnios, third trimester, not applicable or unspecified (3) Status post section Status: Acute Comment: Arrest of dilation (4) Maternal fever during labor Status: Acute Comment: intra-amnionic inflammation Delivery Classification: MAHESH Final KALEE: 10/07/18 Gestational age: 40 Weeks and 1 Days doctor who attended delivery (if requested by OB): Cally Becker Indications: 22-year-old 1 admitted for scheduled induction of labor for oligohydramnios. She progressed to 8-1/2 cm dilation over approximately 30 hours however subsequently had no further progress. Fetus was asynclitic. Of note she did experience intrapartum fever and antibiotics were started, however did not meet criteria for chorioamnionitis. She is advised to proceed with section for arrest of dilation. Risks, benefits, indications of procedure were reviewed at length. Informed consent was obtained. Indications for : Sec. Arrest of Dilitation Description of Procedure: Procedure: The patient was taken to the operating room and spinal analgesia was administered. She is placed in a dorsal supine position with left lateral tilt. The perineum and abdomen were prepped and draped in sterile fashion. And the spinal was found to be adequate. A Pfannenstiel incision was made using a scalpel and brought down to incise the subcutaneous tissue and rectus fascia at the midline. Subcutaneous tissue was bluntly dissected off the fascia laterally. The fascial incision was dissected laterally and cephalad using curved Yañez scissors. The superior leaflet of the rectus fascia was grasped using Shanna clamps and bluntly dissected and sharply dissected from the underlying rectus muscle. In a similar fashion the inferior rectus fascia was dissected from the underlying muscle. The rectus muscles were bluntly at the midline. The peritoneum was identified and entered [sharply]. The bladder blade was placed into the abdomen and the vesicouterine peritoneal fold identified. The fold was incised and a bladder flap created. Bladder blade was then repositioned to the abdomen. A low transverse hysterotomy was made using the [Metzenbaum scissors] to level of the membranes. The hysterotomy was extended bluntly cephalad and caudad. The membranes were then ruptured revealing sodium stained fluid. The head was elevated and brought to the level of the hysterotomy and the delivered in OP revealing a [male] infant. The cord was doubly clamped and cut. The was passed to awaiting [nursery personnel]. The placenta was [expressed] from the uterus and appeared intact on inspection. The uterus was cleared of debris. The hysterotomy was then repaired using 0 Vicryl running lock suture. A second imbricating layer was also placed for additional hemostasis. The bladder blade was removed. The anterior cul-de-sac was cleared of debris. The peritoneum and rectus muscles were reapproximated using 2-0 Vicryl running suture. The rectus fascia was closed using 0 strata fix running suture. The subcutaneous tissue was sponge irrigated and small capillary bleeding controlled using the Bovie device. The subcutaneous tissue was reapproximated using 2-0 Vicryl. The skin was closed using 4-0 Monocryl subcuticularly. A Mepilex occlusive dressing was placed over the incision. The fundus was firm. The patient was then transferred to the recovery room without complication. Sponge, instrument, and needle counts were correct ?2. Amniotic Membrane Rupture Type: Artificial Amniotic Fluid Description: Lightly stained meconium, - - at time of delivery Placenta Disposition: [facility] Specimen(s) sent to pathology: placenta Drain: Bob to straight drain Fluids Replaced: 1500 ml Cord Entanglement: Around neck x 1, loose Nuchal Cord Compression: Without compression Cord Vessel Description: 3 Vessels Esitmated Blood Loss (ml): 600 Gender: Male (1 minute): 5 (5 minute): 9 Delayed cord clamping: No Pre-op Antibiotic Given: Ancef 2 grams IV x1 Pt instructed on risks of surgery: Bleeding, Anesthesia Risks, Infection, Injury to surrounding structure(s) including bowel and bladder Complications: None - Admit VTE Documentation VTE Present on Admission: No VTE Mechan Device Prophylaxis: SCD's VTE Pharm Prophylaxis ordered?: No
--- NOTE | 2018-10-08 05:08 | DCINST_ITS ---
Discharge Diet: No Restrictions Discharge Activity: Return to Normal Activity, May not drive while taking narcotic pain medications., May Shower May resume sexual activity in: 6 weeks Lifting Restrictions: 10 lb Call your doctor if your incision/area has: Continuous Slow Oozing, Sudden Increased Bleeding, Increased Pain/ Swelling, Increased Redness Call your doctor if you observe: Fever of 101 or Higher, Inability to urinate, Inability to have a bowel movement, Using more than one pad per hour, Shortness of breath, Chest pain, Calf discomfort, Uncontrolled pain Suture Line Care: Avoid Pulling/Pushing Remove Dressing in (days):: 3 Cleanse incision/area with: Soap & Water Additional Instructions: If you experience any of the following, contact your healthcare provider. * Bleeding that soaks a pad every hour for 2 hours * Fever 100.4 or higher * Unrelieved incision or abdominal pain * Swelling, redness, discharge or bleeding from your incision or episiotomy site * Your incision begins to separate * Problems urinating (including inability to urinate or burning while urinating). * Visual changes * Severe headache * Flu-like symptoms * Pain or redness in one of both of your breasts * Pain, warmth, tenderness or swelling in your legs, especially the calf area * Frequent nausea and vomiting * Symptoms of depression or anxiety If you experience any of the following, call 911 or go to the nearest Emergency Room. * Chest pain * Problems breathing * Seizure activity * Partial or complete paralysis of a body part, slurred speech, weakness or drooping of the face, or a sudden inability to walk or hold your balance Allergies/Adverse Reactions: Allergies No Known Allergies Allergy (Verified 10/14/18 03:25) Medications to take at Discharge Tablet 1 tab PO DAILY 10/06/18 Ibuprofen [Motrin] 600 mg PO Q8H PRN PRN #30 tablet 10/10/18 Senna/Docusate Sodium [Senokot-S] 1 - 2 tablet PO DAILY PRN #60 tablet 10/10/18 Ciprofloxacin [Cipro] 500 mg PO BID #20 tablet 10/20/18 Linezolid 600 mg PO Q12H 10 Days #20 tablet 10/20/18 Metronidazole [Flagyl] 500 mg PO Q8H #30 tablet 10/20/18 Saccharomyces Boulardii [Florastor] 250 mg PO BID #60 capsule 10/20/18 The following prescriptions were given: Ibuprofen [Motrin] 600 mg PO Q8H PRN PRN #30 tablet PRN Reason: Pain Senna/Docusate Sodium [Senokot-S] 1 - 2 tablet PO DAILY PRN #60 tablet PRN Reason: Constipation Follow-Up: Call to make an appointment with your doctor for an incision check in 1-2 weeks. You will also need a 6 week post- follow up appointment. Test results from this visit will be discussed in further detail at your follow- up appointment, if applicable. Please Follow Up With: Janell Zuñiga MD When: 1-2 weeks AND 6 weeks
[2018-10-08] MEDS: Oxytocin 30 units/NS 500 ml 30 UNITS/500 ML IV.SOLN 167 UNITS IV (06:30)
[2018-10-08] MEDS: Lactated Ringers 1,000 ML 100 ML IV ×3 (06:30→21:50)
[2018-10-08] MEDS: Cefazolin 2 GM in 0.9% Normal Saline 100 ML IV (06:35)
[2018-10-08] MEDS: Lactated Ringers 1,000 ML 150 ML IV (06:36)
[2018-10-08 07:33] LABS: Pathology Specimen OB SEE PATHOLOGY REPORT
--- NOTE | 2018-10-08 08:48 | NURSING ---
epidural cath removed, blue tip intact
--- NOTE | 2018-10-08 08:48 | NURSING ---
Dr. Yi Ramirez called and updated on tachycardia. Patients HR ranging in 120s at this time, will go down to lower 100s with rest. Patient denies any palpitations or SOB. Urine output 400 and clear in last 2 hours, patients temp 98.6. Fundus firm -1 below and bleeding small. Plan to monitor at this time.
[2018-10-08] MEDS: Ketorolac 30 MG/ML Syringe IV ×3 (10:20→21:50)
[2018-10-08] MEDS: Senna/Docusate Sodium 1 Tablet PO (13:37)
[2018-10-08] MEDS: Prenatal Vits Tablet 1 TABLET PO (13:39)
[2018-10-08] MEDS: 0.9% Saline Lock 10 ML Syringe IV (16:10)
[2018-10-09] VITALS (7 sets, daily range): BP systolic 122–146; BP diastolic 61–90; PULSE 104–126; RESP 16–18; TEMP 36.6–37.8; O2SAT 97–99
[2018-10-09] MEDS: Ketorolac 30 MG/ML Syringe IV ×4 (02:52→21:34)
[2018-10-09] MEDS: oxyCODONE 5 MG Tablet PO ×4 (04:00→23:12)
--- NOTE | 2018-10-09 05:00 | NURSING ---
This RN to pt bedside to draw morning labs. When preparing pt this RN noticed an e-cigarette in pts bed. When asked pt confirmed it was her e-cigarette. E-cigarette removed from bed. Pt instructed on hospital policy that this product is not to be used inside the hospital. Pt verbalizes understanding and agrees not to use product in the hospital again. marine structural welder Robyn notified of the event.
[2018-10-09 05:37] LABS: Hematocrit 34.9 % (37-47); Hemoglobin 11.8 g/dl (12.0-15.0); Mean Corp Hgb Conc 33.8 g/gl (32-36); Mean Corpuscular Hgb 31.7 pg (27.0-32.0); Mean Corpuscular Volume 93.8 fL (81-99); Mean Platelet Vol. 9.5 fl (6.2-12.0); Platelet Count 173 K/mm3 (150-450); RBC Distribution Width CV 13.3 % (11.6-14.6); RBC Distribution Width SD 45.7 fl (35.1-43.9); Red Blood Count 3.72 M/mm3 (4.2-5.4)
[2018-10-09 05:42] LABS: Scan Indicated on CBC? Y/N YES- FLAGS NOTED
[2018-10-09 05:43] LABS: White Blood Count 31.4 K/mm3 (4.4-11.0)
--- NOTE | 2018-10-09 05:50 | NURSING ---
Lab call received with critical lab value of WBC 31.4. Pt VS remain unchanged. Dr. Zuñiga to be made aware of lab value.
[2018-10-09 07:23] LABS: Differential Comment SCAN
--- NOTE | 2018-10-09 08:35 | PN.OBGYN_ITS ---
Patient Problems: Active and Suspected Problems (Last Updated 10/06/18 @ 20:57 by Janell Ramirez MD) 39 weeks gestation of (Acute) Oligohydramnios (Acute) Status post section (Acute) Arrest of dilation Maternal fever during labor (Acute) intra-amnionic inflammation Subjective: Denies fever, chills, nausea, vomiting. Denies heavy lochia. Tolerates a regular diet. Passing flatus. She is bottlefeeding. Objective: avss - Physical Exam General: Alert, Oriented x3, Cooperative, No apparent distress HEENT: Atraumatic, Normocephalic Lungs: Clear to auscultation, Normal air movement Cardiovascular: Regular rate, Regular Rhythm, Normal S1, Normal S2 Abdomen: Bowel Sounds Present, Soft, Non Tender, Non-Distended, - - Fundus firm and nontender, incisional dressing c/d/i, lochia scant Extremities: No Calf Tenderness, - - trace LE edema Neurological: Neuro grossly intact Psych/Mental Status: Normal Affect, Appropriate, Alert and oriented to time, place, person, mood and affect Vital Signs Temp Pulse Resp BP Pulse Ox 98.2 F 110 H 16 129/61 H 97 10/09/18 04:00 10/09/18 04:00 10/09/18 04:00 10/09/18 04:00 10/09/18 04:00 Oxygen Delivery Method Room Air Weight: 96.162 kg Body Mass Index (BMI) 36.3 Intake and Output for Last 24 Hours 10/07/18 10/08/18 10/09/18 23:59 23:59 23:59 Intake Total 2890 / 2890 2974 / 2974 Output Total 400 / 400 5600 / 5600 2200 / 2200 Balance 2490 / 2490 -2626 / -2626 -2200 / -2200 Laboratory Tests Past 24 Hrs 10/09/18 05:15 WBC 31.4 H* RBC 3.72 L Hgb 11.8 L Hct 34.9 L MCV 93.8 MCH 31.7 MCHC 33.8 RDW 13.3 RDW Differential 45.7 H Plt Count 173 MPV 9.5 Differential Comment SCAN Diff Path Review May foll Medical Necessity - Tobacco Use Smoking Status: Light Smoker (<10/day) Assessment/Plan All Active Problems (Last Updated 02/08/19 @ 20:57 by Janell Zuñiga MD) 39 weeks gestation of (Acute) Oligohydramnios (Acute) Status post section (Acute) Maternal fever during labor (Acute) This is a 22 year-old, G 1P1 POD#1 s/p PLTCS doing well -hx chorioamnionitis -wbc elevated, likely 2/2 labor and delivery - no further evidence of infection, will d/c antibiotics -SW consultation -Routine postop care -Bottlefeeding
[2018-10-09] MEDS: Senna/Docusate Sodium 1 Tablet PO (09:02)
[2018-10-09] MEDS: Prenatal Vits Tablet 1 TABLET PO (09:02)
[2018-10-09] MEDS: 0.9% Saline Lock 10 ML Syringe IV ×3 (10:18→21:35)
[2018-10-09 13:57] LABS: Pathologist Review Reviewed
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
--- NOTE | 2018-10-09 16:26 | CASEMGMT ---
Addendum entered and electronically signed by Alana Wilkes 10/09/18 16:56: Reviewed and approve SIGNAL HELPER student documentation below. Social work will be seeing mother of baby again on 10.10.2018 for additional resources -YAMILETH Sandoval, LIMOUSINE DRIVER Original Note: Social Work Labor and Delivery [facility] referral submitted securely on the [facility] website per the verbal confirmation from the mother of the baby. No other services requested or indicated at this time. -eJri Spain, SIGNAL HELPER Student Barrel Plater.
[2018-10-10 02:15] VITALS: BP 117/67; PULSE 114; RESP 18; TEMP 37.5; O2SAT 96
[2018-10-10] MEDS: oxyCODONE 5 MG Tablet PO ×5 (03:49→23:54)
[2018-10-10 05:52] LABS: Absolute Lymphocyte Count 2.54 X10^3/ul (0.83-4.51); Absolute Neutrophil Count 20.9 X10^3/uL (2.0-7.7); Basophil# 0.03 X10^3/uL; Basophil% 0.1 % (0-1); Eosinophil# 0.22 X10^3/uL; Eosinophils% 0.9 % (0-5); Hemoglobin 11.6 g/dl (12.0-15.0); Lymphocyte # 2.54 X10^3/ul (4.0); Lymphocyte % 10.1 % (19-41); Mean Corp Hgb Conc 33.1 g/gl (32-36); Mean Corpuscular Hgb 31.3 pg (27.0-32.0); Mean Corpuscular Volume 94.3 fL (81-99); Mean Platelet Vol. 9.5 fl (6.2-12.0); Monocyte# 1.38 X10^3/uL; Monocyte% 5.5 % (0-10); Neutrophil # 20.85 X10^3/uL (2.7-7.7); Neutrophil % 82.8 % (47-70); Platelet Count 214 K/mm3 (150-450); RBC Distribution Width CV 12.8 % (11.6-14.6); RBC Distribution Width SD 42.6 fl (35.1-43.9); Red Blood Count 3.71 M/mm3 (4.2-5.4); White Blood Count 25.2 K/mm3 (4.4-11.0)
[2018-10-10 05:53] LABS: Differential Indicated SCAN CRITERIA MET; POSITIVE COUNT NO; POSITIVE DIFFERENTIAL YES; POSITIVE MORPHOLOGY YES
--- NOTE | 2018-10-10 08:15 | PCM.PN.OB ---
Patient Problems: Active and Suspected Problems (Last Updated 10/06/18 @ 20:57 by Janell Zuñiga MD) 39 weeks gestation of (Acute) Oligohydramnios (Acute) Status post section (Acute) Arrest of dilation Maternal fever during labor (Acute) intra-amnionic inflammation Subjective: She reports painfulness today, but improved with pain medication. Passing flatus, no bowel movement yet. Denies fever, chills. Objective: AVSS - Physical Exam General: Alert, Oriented x3, Cooperative, No apparent distress HEENT: Atraumatic, Normocephalic Lungs: Clear to auscultation, Normal air movement Cardiovascular: Regular rate, Regular Rhythm Abdomen: Bowel Sounds Present, Soft, Non Tender, Non-Distended, - - Fundus firm and nontender Extremities: No Calf Tenderness, - - +1 b/l LE edema Neurological: Neuro grossly intact Psych/Mental Status: Normal Affect, Appropriate, Alert and oriented to time, place, person, mood and affect Vital Signs Temp Pulse Resp BP Pulse Ox 97.5 F L 103 H 19 H 139/71 H 96 10/10/18 19:50 10/10/18 19:50 10/10/18 19:50 10/10/18 19:50 10/10/18 02:15 Oxygen Delivery Method Room Air Weight: 96.162 kg Body Mass Index (BMI) 36.3 Intake and Output for Last 24 Hours 10/08/18 10/09/18 10/10/18 23:59 23:59 23:59 Intake Total 2974 / 2974 Output Total 5600 / 5600 2900 / 2900 Balance -2626 / -2626 -2900 / -2900 Laboratory Tests Past 24 Hrs 10/10/18 05:20 WBC 25.2 H RBC 3.71 L Hgb 11.6 L Hct 35.0 L MCV 94.3 MCH 31.3 MCHC 33.1 RDW 12.8 RDW Differential 42.6 Plt Count 214 MPV 9.5 Immature Gran % (Auto) 0.600 Neut % (Auto) 82.8 H Lymph % (Auto) 10.1 L [place] % (Auto) 5.5 Eos % (Auto) 0.9 Baso % (Auto) 0.1 Absolute Neuts (auto) 20.9 H Absolute Lymphs (auto) 2.54 Total Counted Not Reportable Medical Necessity - Tobacco Use Smoking Status: Light Smoker (<10/day) Assessment/Plan All Active Problems (Last Updated 10/06/18 @ 20:57 by Janell Zuñiga MD) 39 weeks gestation of (Acute) Oligohydramnios (Acute) Status post section (Acute) Maternal fever during labor (Acute) This is a 22 year-old, G 1P1 POD#2 s/p PLTCS doing well -hx chorioamnionitis -no si/sx infection -SW consultation completed -Routine postop care -Bottlefeeding
--- NOTE | 2018-10-10 08:21 | EKG12_ITS ---
Test Reason : Blood Pressure : / mmHG Vent. Rate : 109 BPM Atrial Rate : 109 BPM P-R Int : 134 ms QRS Dur : 090 ms QT Int : 326 ms P-R-T Axes : 062 075 -01 degrees QTc Int : 439 ms Sinus tachycardia Nonspecific T wave abnormality Abnormal ECG No previous ECGs available Confirmed by LEXUS LUTZ, ANNY ([id number]), video tape editor MISAEL VALENCIA ([id number]) on 10/13/2018 9:23:23 AM Referred By: Janell Zuñiga Confirmed By:ANNY ALBERTS MD
[2018-10-10 08:30] VITALS: BP 128/69; PULSE 105; RESP 18; TEMP 37.1
[2018-10-10] MEDS: Prenatal Vits Tablet 1 TABLET PO (08:50)
[2018-10-10] MEDS: Senna/Docusate Sodium 1 Tablet PO (08:50)
[2018-10-10] MEDS: Ibuprofen 600 MG Tablet PO ×2 (11:18→23:25)
[2018-10-10 14:20] VITALS: BP 111/55; PULSE 82; RESP 18; TEMP 36.4
[2018-10-10 19:50] VITALS: BP 139/71; PULSE 103; RESP 19; TEMP 36.4
--- NOTE | 2018-10-10 22:48 | PCM.DC.SUM ---
Discharge Date and Diagnosis - Problem List Patient Problems: Active and Suspected Problems (Last Updated 10/06/18 @ 20:57 by Janell Zuñiga MD) 39 weeks gestation of (Acute) Oligohydramnios (Acute) Status post section (Acute) Arrest of dilation Maternal fever during labor (Acute) intra-amnionic inflammation Date of Admission: 10/06/18 Date of Discharge: 10/11/18 - Primary Discharge Diagnosis Active and Suspected Problems (Last Updated 10/06/18 @ 20:57 by Janell Zuñiga MD) 39 weeks gestation of (Acute) Oligohydramnios (Acute) Status post section (Acute) Arrest of dilation Maternal fever during labor (Acute) intra-amnionic inflammation Hospital Course and Treatment Operations: - - section Summary of Care Provided: The patient is a 22 year old F admitted at 39+ wga for induction of labor for oligohydramnios. She progressed to 8.5cm dilation with arrest of dilation and developed intrapartum fever. Antibiotics were administered and she underwent an uncomplicated section. Her postoperative course remarkable for tachycardia. EKG showed sinus tachycardia and tachycardia attributed to her anxiety. She was discharged to home on postoperative day#3. Patient Problems: Active and Suspected Problems (Last Updated 10/06/18 @ 20:57 by Janell Zuñiga MD) 39 weeks gestation of (Acute) Oligohydramnios (Acute) Status post section (Acute) Arrest of dilation Maternal fever during labor (Acute) intra-amnionic inflammation - Physical Exam Vital Signs Temp Pulse Resp BP Pulse Ox 97.5 F L 103 H 19 H 139/71 H 96 10/10/18 19:50 10/10/18 19:50 10/10/18 19:50 10/10/18 19:50 10/10/18 02:15 Oxygen Delivery Method Room Air Weight: 96.162 kg Body Mass Index (BMI) 36.3 Intake and Output for Last 24 Hours 10/08/18 10/09/18 10/10/18 23:59 23:59 23:59 Intake Total 2974 / 2974 Output Total 5600 / 5600 2900 / 2900 Balance -2626 / -2626 -2900 / -2900 Laboratory Tests Past 24 Hrs 10/10/18 05:20 WBC 25.2 H RBC 3.71 L Hgb 11.6 L Hct 35.0 L MCV 94.3 MCH 31.3 MCHC 33.1 RDW 12.8 RDW Differential 42.6 Plt Count 214 MPV 9.5 Immature Gran % (Auto) 0.600 Neut % (Auto) 82.8 H Lymph % (Auto) 10.1 L [place] % (Auto) 5.5 Eos % (Auto) 0.9 Baso % (Auto) 0.1 Absolute Neuts (auto) 20.9 H Absolute Lymphs (auto) 2.54 Total Counted Not Reportable Discharge Diet: No Restrictions Discharge Activity: Return to Normal Activity, May not drive while taking narcotic pain medications., May Shower May resume sexual activity in: 6 weeks Call your doctor if your incision/area has: Continuous Slow Oozing, Sudden Increased Bleeding, Increased Pain/ Swelling, Increased Redness Call your doctor if you observe: Fever of 101 or Higher, Inability to urinate, Inability to have a bowel movement, Using more than one pad per hour, Shortness of breath, Chest pain, Calf discomfort, Uncontrolled pain Suture Line Care: Avoid Pulling/Pushing Remove Dressing in (days):: 3 Cleanse incision/area with: Soap & Water Home Medications: Medications to take at Discharge Tablet 1 tab PO DAILY 10/06/18 Ibuprofen [Motrin] 600 mg PO Q8H PRN PRN #30 tablet 10/10/18 Oxycodone [Oxyir] 1 - 2 tab PO Q6H PRN PRN 7 Days #28 tablet 10/10/18 Senna/Docusate Sodium [Senokot-S] 1 - 2 tablet PO DAILY PRN #60 tablet 10/10/18 Following Prescrptions Were Given to Patient: Oxycodone [Oxyir] 1 - 2 tab PO Q6H PRN PRN 7 Days #28 tablet PRN Reason: Mod-Severe Pain (4-10/10) Ibuprofen [Motrin] 600 mg PO Q8H PRN PRN #30 tablet PRN Reason: Pain Senna/Docusate Sodium [Senokot-S] 1 - 2 tablet PO DAILY PRN #60 tablet PRN Reason: Constipation Please Follow Up With: Janell Zuñiga MD When: 1-2 weeks AND 6 weeks Medical Necessity - Tobacco Use Smoking Status: Light Smoker (<10/day) Meaningful Use Info Meaningful Use Diagnoses (Choose all that apply): None applicable
[2018-10-11 01:30] VITALS: BP 139/82; PULSE 120; RESP 19; TEMP 36.1
[2018-10-11] MEDS: oxyCODONE 5 MG Tablet PO ×3 (05:07→15:02)
[2018-10-11] MEDS: Ibuprofen 600 MG Tablet PO (07:57)
[2018-10-11 08:00] VITALS: BP 144/86; PULSE 134; RESP 20; TEMP 37.8; O2SAT 96
[2018-10-11 08:40] VITALS: TEMP 37.9
--- NOTE | 2018-10-11 08:59 | NURSING ---
Slight skin irritation noted above dressing.
[2018-10-11] MEDS: Prenatal Vits Tablet 1 TABLET PO (09:48)
--- NOTE | 2018-10-11 09:52 | PN.OBGYN_ITS ---
Patient Problems: Active and Suspected Problems (Last Updated 10/06/18 @ 20:57 by Janell Ramirez MD) 39 weeks gestation of (Acute) Oligohydramnios (Acute) Status post section (Acute) Arrest of dilation Maternal fever during labor (Acute) intra-amnionic inflammation Subjective: no issues overnight. Denies fever, chills, nausea, vomiting, chest pain, shortness of breath, palpitations, cough, sore throat. She reports pain at apex of incision. Objective: AVSS - Physical Exam General: Alert, Oriented x3, Cooperative, No apparent distress HEENT: Atraumatic, Normocephalic Lungs: Normal air movement Cardiovascular: Regular rate, Regular Rhythm, Normal S1, Normal S2 Abdomen: Soft, Non Tender, Non-Distended Extremities: No edema, No Calf Tenderness Neurological: Neuro grossly intact Psych/Mental Status: Normal Affect, Appropriate, Alert and oriented to time, p lace, person, mood and affect Vital Signs Temp Pulse Resp BP Pulse Ox 100.3 F H 134 H 20 H 144/86 H 96 10/11/18 08:40 10/11/18 08:00 10/11/18 08:00 10/11/18 08:00 10/11/18 08:00 Oxygen Delivery Method Room Air Weight: 96.162 kg Body Mass Index (BMI) 36.3 Intake and Output for Last 24 Hours 10/09/18 10/10/18 10/11/18 23:59 23:59 23:59 Output Total 2900 / 2900 Balance -2900 / -2900 Medical Necessity - Tobacco Use Smoking Status: Light Smoker (<10/day) Assessment/Plan All Active Problems (Last Updated 10/06/18 @ 20:57 by Janell Zuñiga MD) 39 weeks gestation of (Acute) Oligohydramnios (Acute) Status post section (Acute) Maternal fever during labor (Acute) This is a 22 year-old, G 1P1 POD#3 s/p PLTCS doing well -hx chorioamnionitis -Temperature slightly elevated this morning, no clear evidence of infection - CBC -SW consultation completed -Routine postop care -Bottlefeeding -Will consider d/c this afternoon if no further temperature elevation and no worsening leukocytosis.
[2018-10-11] MEDS: Senna/Docusate Sodium 1 Tablet PO (11:03)
[2018-10-11 11:21] LABS: Absolute Lymphocyte Count 1.77 X10^3/ul (0.83-4.51); Absolute Neutrophil Count 19.3 X10^3/uL (2.0-7.7); Basophil# 0.04 X10^3/uL; Basophil% 0.2 % (0-1); Eosinophil# 0.39 X10^3/uL; Eosinophils% 1.6 % (0-5); Hematocrit 37.3 % (37-47); Hemoglobin 12.6 g/dl (12.0-15.0); Lymphocyte # 1.77 X10^3/ul (4.0); Lymphocyte % 7.4 % (19-41); Mean Corp Hgb Conc 33.8 g/gl (32-36); Mean Corpuscular Hgb 31.3 pg (27.0-32.0); Mean Corpuscular Volume 92.6 fL (81-99); Mean Platelet Vol. 9.3 fl (6.2-12.0); Monocyte# 2.12 X10^3/uL; Monocyte% 8.9 % (0-10); Neutrophil % 80.7 % (47-70); Platelet Count 278 K/mm3 (150-450); RBC Distribution Width CV 12.9 % (11.6-14.6); Red Blood Count 4.03 M/mm3 (4.2-5.4); White Blood Count 23.9 K/mm3 (4.4-11.0)
[2018-10-11 11:22] LABS: Differential Indicated SCAN CRITERIA MET; POSITIVE COUNT NO; POSITIVE DIFFERENTIAL YES; POSITIVE MORPHOLOGY NO
[2018-10-11 11:33] LABS: Differential Comment SCANNED
[2018-10-11 13:40] VITALS: BP 121/66; PULSE 82; RESP 16; TEMP 36.2; O2SAT 97
--- NOTE | 2018-10-11 14:46 | CASEMGMT ---
Addendum entered and electronically signed by Alana Wilkes 10/12/18 16:50: Reviewed and approve PIPELINE SUPERINTENDENT DIVISION student buyer intern documentation below. -Alana Wilkes, MARCELA-Monserrat, FORESTRY HUNTER Original Note: Social Work Labor and Delivery Late Note: [facility] information packet was taken to MOB as she was tending to baby with FOB sleeping in chair at bedside. No other requests or indications of services at this time. -Jeri Spain, PIPELINE SUPERINTENDENT DIVISION Student Dental Assistant Teacher.
[2018-10-12 13:36] LABS: Pathologist Review Reviewed
== END 2018-10-11 18:05 | disposition home or self-care (01) | DRG 540 ==
PROVIDERS: Admitting Provider Obstetrics & Gynecology; Referring Provider Obstetrics & Gynecology; Visit Provider Obstetrics & Gynecology
DX: O62.0 Primary inadequate contractions (principal); Z3A.40 40 weeks gestation of pregnancy; Z37.0 Single live birth; O41.03X0 Oligohydramnios, third trimester, not applicable or unspecified; O99.334 Smoking (tobacco) complicating childbirth; F17.200 Nicotine dependence, unspecified, uncomplicated; O76 Abnormality in fetal heart rate and rhythm complicating labor and delivery; O75.2 Pyrexia during labor, not elsewhere classified; O77.0 Labor and delivery complicated by meconium in amniotic fluid; O69.82X0 Labor and delivery complicated by other cord entanglement, without compression, not applicable or unspecified; O99.345 Other mental disorders complicating the puerperium; F41.9 Anxiety disorder, unspecified
CPT/HCPCS: 36415; 59025; 59050; 80307; 85025; 85027; 86850; 86900; 88307; 93005; 99218; J7120; A4216; G0378

== ENCOUNTER 2018-10-14 03:25 | Inpatient (IN) | payer MEDICAID, SELFPAY ==
[2018-10-14] VITALS (10 sets, daily range): BP systolic 105–146; BP diastolic 61–96; PULSE 85–114; RESP 15–23; TEMP 36.2–38.3; O2SAT 95–98; BMI 32.5; BMI 34.7
[2018-10-14] MEDS: Ondansetron 4 MG/2 ML Vial IV (04:51)
[2018-10-14] MEDS: 0.9% Normal Saline 1,000 ML 1000 ML IV ×2 (04:51→06:10)
[2018-10-14 05:03] LABS: Absolute Lymphocyte Count 1.33 X10^3/ul (0.83-4.51); Absolute Neutrophil Count 19.1 X10^3/uL (2.0-7.7); Basophil# 0.02 X10^3/uL; Basophil% 0.1 % (0-1); Eosinophil# 0.13 X10^3/uL; Eosinophils% 0.6 % (0-5); Hematocrit 39.5 % (37-47); Hemoglobin 13.2 g/dl (12.0-15.0); Lymphocyte # 1.33 X10^3/ul (4.0); Mean Corp Hgb Conc 33.4 g/gl (32-36); Mean Corpuscular Hgb 31.3 pg (27.0-32.0); Mean Corpuscular Volume 93.6 fL (81-99); Mean Platelet Vol. 8.8 fl (6.2-12.0); Monocyte# 1.27 X10^3/uL; Monocyte% 5.7 % (0-10); Neutrophil # 19.09 X10^3/uL (2.7-7.7); Neutrophil % 85.3 % (47-70); Platelet Count 382 K/mm3 (150-450); RBC Distribution Width CV 12.9 % (11.6-14.6); RBC Distribution Width SD 44.4 fl (35.1-43.9); Red Blood Count 4.22 M/mm3 (4.2-5.4); White Blood Count 22.4 K/mm3 (4.4-11.0)
[2018-10-14 05:10] LABS: Differential Indicated SCAN CRITERIA MET; POSITIVE COUNT YES; POSITIVE DIFFERENTIAL NO; POSITIVE MORPHOLOGY YES
[2018-10-14] MEDS: Morphine 4 MG/ML Syringe IV ×2 (05:10→07:18)
[2018-10-14 05:11] LABS: BUN 10 mg/dL (7-18); Creatinine, Serum 0.66 mg/dL (0.55-1.02); EST Glomerular Filtration Rate 119 mL/min (>60); Estimated Creatinine Clearance 117.41 ml/min; Glucose 82 mg/dL (74-106)
[2018-10-14 05:12] LABS: ALB/GLOB Ratio 0.4 RATIO (0.9-2.4); AST(SGOT) 24 U/L (15-37); Alanine Aminotransfer ALT/SGPT 35 U/L (13-56); Albumin, Serum 2.1 g/dL (3.2-5.0); Alkaline Phosphatase 304 U/L (45-117); Anion Gap 10 (5-15); BUN/Creat Ratio 15.1 RATIO (10-20); Calcium,Total 8.9 mg/dL (8.5-10.1); Chloride 107 mmol/L (98-107); Est Glom Filt Rate - Afr Amer 144 mL/min (>60); Globulin 4.8 g/dL (2.2-4.2); Lipase 67 U/L (73-393); Potassium 3.7 mmol/L (3.5-5.1); Protein, Total 6.9 g/dL (6.4-8.2); Sodium Level 139 mmol/L (136-145)
--- NOTE | 2018-10-14 05:18 | CT_ITS ---
We are attempting to reach Dickson Cardona to discuss findings. An addendum with communication details will be sent when the communication is complete. STUDY: CT ABDOMEN AND PELVIS WITH CONTRAST REASON FOR EXAM: Female, 22 years old. Right-sided abdominal pain. Patient is postop after recent section. Patient has elevated white count, nausea, vomiting and diarrhea. RADIATION DOSAGE (If Supplied By Facility): CTDIvol = ( 13.46 ) mGy, DLP = ( 1200.98 ) mGycm TECHNIQUE: Transaxial images were obtained from the dome of the diaphragm to the symphysis pubis without oral contrast. Isovue 300 100 ml IV was administered. Sagittal and coronal images were reconstructed. Individualized dose optimization techniques were used for this CT. COMPARISON: Prior comparison studies are not available for review at this time. FINDINGS: The visualized lung bases are unremarkable. The visualized portions of the heart are within normal limits. Normal liver. The gallbladder is very distended measuring up to 11.2 cm in greatest dimension. Common bile duct measures approximately 5 mm in greatest transverse dimension. Normal spleen. Normal pancreas. Normal bilateral adrenal glands. There is moderate right-sided hydronephrosis and hydroureter without evidence or radiopaque ureteral calculus. There is abnormal heterogeneous enhancement of the mid and lower pole left kidney suggesting possible sequela of multifocal pyelonephritis. Normal visualized stomach. Normal small intestine. Stool is visible throughout the colon with scattered diverticula. There is non-visualization of the appendix. Normal abdominal aorta. Normal inferior vena cava. Normal retroperitoneum. Normal urinary bladder. The uterus is enlarged consistent with recent state. There is a loculated collection in the right pelvis containing multiple foci of gas and air-fluid levels measuring approximately 4.2 x 4.5 x 3.9 cm in size. This is likely a postoperative abscess. There is abnormal attenuation within the lower anterior abdominal wall subcutaneous tissues consistent with recent Pfannenstiel incision. Normal osseous structures. CT/Abdomen/Pelvis W IV Cont ONLY IMPRESSION: 1. Right-sided pelvic abscess is likely postoperative in etiology. 2. Very distended gallbladder versus gallbladder hydrops. 3. Common bile duct is at the upper limits of normal. 4. Moderate right-sided hydronephrosis and hydroureter without evidence for radiopaque ureteral calculus. This may be the result of reflexive response of the right pelvic abscess and/or recent surgery. 5. Multifocal abnormal enhancement of the left kidney suggests possible sequela of multifocal pyelonephritis. Electronically Signed: Stacy Nelson MD at 7:05 EST , Service support ,
--- NOTE | 2018-10-14 05:37 | ED.VISSUMM ---
- ER Visit Summary Date of Service: 10/14/18 Chief Complaint: [] Abdominal pain History of Present Illness: The patient is a 22 F complaining of abdominal pain diffuse more upper for the last 8 hours. Gradual onset. It was intermittent. It lasted 30 minutes and went away earlier today and then came back 2 hours ago and went away when she was in the department. Currently she has no pain. She had one episode of emesis at home. She is been constipated for the last 3 days. She is 8 days post . She had no complications. She denies any drainage from the wound. She is never had anything like this before. This is her first . No home treatment. Physical Examination: [] Vital signs reviewed General: Well-nourished well-developed Head: Normocephalic atraumatic Eyes: Pupils equal round and reactive to light extraocular movements intact ENT: TMs clear no hemotympanum no trauma Neck: Nontender full range of motion Cardiovascular: Regular rate rhythm no murmurs normal S1-S2 Respiratory: No distress clear to auscultation bilaterally chest nontender Abdomen: Soft nontender nondistended normal bowel sounds no masses. Postoperative wound covered no drainage Back: Nontender no CVA tenderness Extremities: Nontender active range of motion ?4 extremities no trauma Skin: Normal color no trauma Neuro alert oriented cranial nerves II through XII intact normal strength sensation reflexes Test Results: [] Emergency Department Course and Treatment: [] Lab work shows a white count of 22.4. 85% segs. Chemistries normal. Liver function tests show an alk phos of 304. Lipase 67. Patient given IV fluids Zofran and morphine. CT abdomen pelvis obtained that shows a right-sided pelvic abscess up to 4 cm with compressive hydronephrosis on the right. Patient also has a distended gallbladder with normal LFTs. She has some changes in her left kidney suspected of pyelonephritis but no evidence of UTI on lab work. Patient was given a dose of Zosyn. Will be discussed with GEOGRAPHY FACULTY MEMBER. Treatment Plan: [] Disposition: [] Impression: [] Postoperative intra-abdominal abscess with right sided hydronephrosis This note was generated with Jetloreation software. It may contain incorrect words, spelling, and punctuation that were not noted in review of the chart prior to signing ED Disposition - Plan for ED Patient: Referrals: Care Physician,Rina Primary [Primary Care Provider] -
[2018-10-14 06:34] LABS: Bacteria 0 SEEN /hpf (None Seen); Mucous, Urine 0 SEEN /hpf (<or=2+)
[2018-10-14 06:47] LABS: Color, Urine Yellow (Yellow); Glucose, Dipstick Normal (Normal); Ketone-Dipstick 5 mg/dl (Negative); Leukocyte Esterase-Dipstick 500 /ul (Negative); Nitrite-Dipstick Negative (Negative); Occult Blood-Urine 250 /ul (Negative); Protein-Dipstick 30 mg/dl (Negative); Urine Bilirubin Dipstick Negative (Negative); Urine Clarity Sl. Cloudy (Clear); Urine Urobilinogen Normal (Normal); Urine pH 6.5 (5.0 - 8.0)
[2018-10-14 06:53] LABS: Red Blood Cells-Urine 50-100 SEEN /hpf (0-5); White Blood Cells 25-50 SEEN /hpf (0-5)
[2018-10-14 06:54] LABS: Squamous Epithelial Cells - UA 0-5 SEEN /hpf (5-10)
--- NOTE | 2018-10-14 07:14 | NURSING ---
DR Piotr SLOAN
--- NOTE | 2018-10-14 07:41 | NURSING ---
MED SURG POST OP ABD ABSCESS J SUSU
[2018-10-14] MEDS: Ketorolac 30 MG/ML Syringe IV ×2 (10:22→17:20)
--- NOTE | 2018-10-14 11:23 | PCM.HP.BLA ---
History and Physical Date of Admission: 10/14/18 History and Physical - OBGYN History This is a 22-year-old patient who presents to the emergency department 8 days . She presented because she was having some lower abdominal discomfort. She denies fevers at home and has had only occasional nausea. She has had some problems with constipation but has had bowel movements since going home. Medical History: Anxiety F41.9 Depression F32.9 Allergies No Known Allergies Allergy (Verified 10/06/18 19:47) Home Medications Tablet 1 tab PO DAILY 10/06/18 Oxycodone prn Colace prn constipation Smoking Status: Light Smoker (<10/day) Alcohol: None History Past Pregnancies: Labs Blood Type: A RH: POSITIVE RPR/VDRL/Syphilis Nonreactive Rubella status Immune HbSAg Negative Date Done: 04/10/18 Chlamydia Negative Gonorrhea Negative HIV/AIDS Non-Reactive Group B Strep: Negative Other Lab Procedures/Results/ urine positive for nicotine 04/10/18 Comments: Current Obstetrical History Gestational Diabetes No Incompetent Cervix No Infertility No IUGR No Macrosomia No Hypertension/Pre-eclampsia No Placenta Previa/Abruption No PTL/PROM No Uterine anomaly No Oligohydramnios Yes Polyhydramnios No Multiple gestation No Past Medical History Asthma No Diabetes No Hypertension No Heart disease No Mitral valve prolapse No Neurologic/Seizure disorder/ No Migraines Kidney disease No Liver disease No Varicosities No Clotting disorders/Hx of DVT No Thyroid Dysfunction No Other medical diseases No Psychiatric disorders No Major trauma No Abnormal PAP smear No Sleep apnea No Mammogram in the last 2 years No Social History Marital Status: SINGLE Alleged father Kasi Clancy Hx Smoking Yes Smoking Status Light Smoker (<10/day) Review of Systems Eyes: Denies: Blurred vision, Vision Change Cardiovascular: Denies: Chest Pain, Edema Gastrointestinal: Denies: Abdominal Pain minimal and appropriate; minimal nausea and vomiting Gynecological: Denies: Some vaginal bleeding Neurological: Denies: Headaches Review of Systems Eyes: Denies: Blurred vision, Vision Change Cardiovascular: Denies: Chest Pain, Edema Breast: Bilateral tenderness c/w 8 day with bottle feeding an no breast feedinng Gastrointestinal: Denies: Abdominal Pain, Nausea, Vomiting Gynecological: Denies: Vaginal bleeding Neurological: Denies: Headaches Physical Exam Vitals: AVSS General: Alert, Oriented x3, No apparent distress HEENT: Atraumatic, Normocephalic Cardiovascular: Regular rate, Regular Rhythm, Normal S1, Normal S2 Lungs: Clear to auscultation, Normal air movement Abdomen: Soft, Non Tender, good bowel sounds; moderate tenderness over uterine fundus; wound clean, dry, intact, No right or left quadrant tenderness rebound or guarding noted Extremities:: Other - trace LE edema Neurological: Neuro grossly intact TRAVELING FREIGHT AGENT: Normal external genitalia Labs/Radiology WBC 22,[address] scan with normal postoperative changes from . Suggestion of 4 cm abscess right of uterus. Also some dilation of the right collecting system ureter and kidney. Assessment/Plan Examination consistent with mild to moderate endometritis status post postoperative day #8. This would be consistent with elevated white count and examination with tender uterine fundus. Early right pyelonephritis from urinary tract infection postoperative also a possibility. Good bowel sounds and bowel function and minimal tenderness in right and left adnexa argue against a right pelvic abscess. Right pelvic changes seen on CT scan is likely postoperative changes after and may represent resolving blood clot. We will continue Zofran and continue to monitor closely as she has not had a fever and her pain is minimal except over the uterine fundus. If she remains afebrile we will consider discharge to home in 1 or 2 days on oral antibiotic with close follow-up.
[2018-10-14] MEDS: 0.9% Normal Saline 1,000 ML 100 ML IV (17:20)
[2018-10-14] MEDS: 0.9% NaCl Peripheral Flush Adult/Peds IV (17:20)
[2018-10-15] MEDS: Ketorolac 30 MG/ML Syringe IV ×4 (00:13→22:07)
[2018-10-15 00:15] VITALS: BP 137/100; PULSE 111; RESP 18; TEMP 38.2; O2SAT 99
[2018-10-15] MEDS: 0.9% NaCl Peripheral Flush Adult/Peds IV ×2 (04:56→15:18)
[2018-10-15] MEDS: 0.9% Normal Saline 1,000 ML 100 ML IV ×2 (04:57→17:41)
[2018-10-15 04:59] VITALS: BP 132/74; PULSE 99; RESP 16; TEMP 37.9; O2SAT 99
[2018-10-15 06:51] LABS: Absolute Lymphocyte Count 2.43 X10^3/ul (0.83-4.51); Basophil# 0.03 X10^3/uL; Basophil% 0.1 % (0-1); Eosinophil# 0.21 X10^3/uL; Eosinophils% 0.9 % (0-5); Hemoglobin 11.3 g/dl (12.0-15.0); Lymphocyte # 2.43 X10^3/ul (4.0); Lymphocyte % 10.9 % (19-41); Mean Corp Hgb Conc 34.2 g/gl (32-36); Mean Corpuscular Hgb 32.2 pg (27.0-32.0); Mean Platelet Vol. 8.4 fl (6.2-12.0); Monocyte# 1.32 X10^3/uL; Monocyte% 5.9 % (0-10); Platelet Count 395 K/mm3 (150-450); RBC Distribution Width CV 12.6 % (11.6-14.6); Red Blood Count 3.51 M/mm3 (4.2-5.4); White Blood Count 22.3 K/mm3 (4.4-11.0)
[2018-10-15 07:02] LABS: POSITIVE COUNT NO; POSITIVE DIFFERENTIAL NO; POSITIVE MORPHOLOGY NO
[2018-10-15 11:00] VITALS: BP 150/77; PULSE 99; RESP 16; TEMP 38; O2SAT 98
--- NOTE | 2018-10-15 12:00 | PN.OBGYN_ITS ---
Subjective: Patient still moderately tender and not feeling much better. Still some difficulty eating but taking liquids well now. Has been on Zosyn every 8 hours since yesterday afternoon. Only pain medication is IV Toradol. - Physical Exam Vital Signs AF, VSS with T-max 100.8 during the past 24 hours. Temp Pulse Resp BP Pulse Ox 100.4 F H 99 16 150/77 H 98 10/15/18 11:00 10/15/18 11:00 10/15/18 11:00 10/15/18 11:00 10/15/18 11:00 Oxygen Delivery Method Room Air Weight: 201 lb 15.095 oz Body Mass Index (BMI) 34.7 Intake and Output for Last 24 Hours 10/13/18 10/14/18 10/15/18 23:59 23:59 23:59 Intake Total 1035 / 1035 797 / 797 Output Total 400 / 400 Balance 635 / 635 797 / 797 Laboratory Tests Past 24 Hrs 10/15/18 06:33 WBC 22.3 H RBC 3.51 L Hgb 11.3 L Hct 33.0 L MCV 94.0 MCH 32.2 H MCHC 34.2 RDW 12.6 RDW Differential 42.0 Plt Count 395 MPV 8.4 Immature Gran % (Auto) 1.200 H Neut % (Auto) 81.0 H Lymph % (Auto) 10.9 L [place] % (Auto) 5.9 Eos % (Auto) 0.9 Baso % (Auto) 0.1 Absolute Neuts (auto) 18.0 H Absolute Lymphs (auto) 2.43 Total Counted Not Reportable Abdominal examination is unchanged. White count is still elevated and virtually unchanged. Medical Necessity - Tobacco Use Smoking Status: Current every day smoker Assessment/Plan All Active Problems (Last Updated 10/06/18 @ 20:57 by Janell Zuñiga MD) 39 weeks gestation of (Acute) Oligohydramnios (Acute) Status post section (Acute) Maternal fever during labor (Acute) Postop day #9 status post section with right lower pelvic abscess versus endometritis. We will continue Zosyn IV for 24 hours but increase frequency to every 6 hours. Will give Tylenol for comfort. If no improvement in condition by tomorrow we will need to consider adding vancomycin and/or possible CT-guided drain placement for 4 cm abscess to the right of the uterus.
[2018-10-15 17:00] VITALS: BP 128/87; PULSE 99; RESP 18; TEMP 36.8; O2SAT 97
[2018-10-15 21:42] VITALS: BP 136/72; PULSE 87; RESP 18; TEMP 37.9; O2SAT 95
[2018-10-16] VITALS (13 sets, daily range): BP systolic 124–167; BP diastolic 77–123; PULSE 75–95; RESP 14–26; TEMP 37.3–39; O2SAT 95–100; BMI 34.7
[2018-10-16] MEDS: Acetaminophen 325 MG Tablet 650 MG PO ×2 (03:46→14:43)
[2018-10-16 05:05] LABS: Absolute Lymphocyte Count 1.45 X10^3/ul (0.83-4.51); Absolute Neutrophil Count 19.2 X10^3/uL (2.0-7.7); Basophil# 0.04 X10^3/uL; Basophil% 0.2 % (0-1); Eosinophil# 0.14 X10^3/uL; Eosinophils% 0.6 % (0-5); Hematocrit 32.4 % (37-47); Hemoglobin 10.7 g/dl (12.0-15.0); Lymphocyte # 1.45 X10^3/ul (4.0); Lymphocyte % 6.6 % (19-41); Mean Corpuscular Hgb 31.4 pg (27.0-32.0); Mean Platelet Vol. 8.3 fl (6.2-12.0); Monocyte# 0.99 X10^3/uL; Monocyte% 4.5 % (0-10); Neutrophil % 87.2 % (47-70); Platelet Count 381 K/mm3 (150-450); RBC Distribution Width CV 12.7 % (11.6-14.6); RBC Distribution Width SD 42.7 fl (35.1-43.9); Red Blood Count 3.41 M/mm3 (4.2-5.4)
[2018-10-16] MEDS: 0.9% Normal Saline 1,000 ML 100 ML IV (05:06)
[2018-10-16] MEDS: Ketorolac 30 MG/ML Syringe IV ×3 (05:11→21:28)
[2018-10-16 05:19] LABS: POSITIVE COUNT NO; POSITIVE DIFFERENTIAL NO; POSITIVE MORPHOLOGY NO
--- NOTE | 2018-10-16 06:59 | PN.OBGYN_ITS ---
Subjective: Patient feeling a bit better this morning. Still not hungry. Positive flatus. Claims pain on right side slightly worse but pain over the uterus better. Spiked a fever to 102.2 at 4:00 AM today and blood cultures collected. - Physical Exam Vital Signs T-max 102.2 ?F overnight other vital signs stable Temp Pulse Resp BP Pulse Ox 100.8 F H 95 16 138/85 H 95 10/16/18 05:05 10/16/18 03:48 10/16/18 03:48 10/16/18 03:48 10/16/18 03:48 Oxygen Delivery Method Room Air Weight: 201 lb 15.095 oz Body Mass Index (BMI) 34.7 Intake and Output for Last 24 Hours 10/14/18 10/15/18 10/16/18 23:59 23:59 23:59 Intake Total 1035 / 1035 2885 / 2885 1296 / 1296 Output Total 400 / 400 Balance 635 / 635 2885 / 2885 1296 / 1296 Laboratory Tests Past 24 Hrs 10/15/18 10/16/18 06:33 04:50 WBC 22.3 H 22.0 H RBC 3.51 L 3.41 L Hgb 11.3 L 10.7 L Hct 33.0 L 32.4 L MCV 94.0 95.0 MCH 32.2 H 31.4 MCHC 34.2 33.0 RDW 12.6 12.7 RDW Differential 42.0 42.7 Plt Count 395 381 MPV 8.4 8.3 Immature Gran % (Auto) 1.200 H 0.900 Neut % (Auto) 81.0 H 87.2 H Lymph % (Auto) 10.9 L 6.6 L [place] % (Auto) 5.9 4.5 Eos % (Auto) 0.9 0.6 Baso % (Auto) 0.1 0.2 Absolute Neuts (auto) 18.0 H 19.2 H Absolute Lymphs (auto) 2.43 1.45 Total Counted Not Reportable Not Reportable Abdomen is soft with markedly less tenderness over the uterine fundus. Right lower quadrant tenderness similar to before. Good bowel sounds noted. White blood cell count still elevated at 22,000. Medical Necessity - Tobacco Use Smoking Status: Current every day smoker Assessment/Plan All Active Problems (Last Updated 10/06/18 @ 20:57 by Janell Zuñiga MD) 39 weeks gestation of (Acute) Oligohydramnios (Acute) Status post section (Acute) Maternal fever during labor (Acute) Likely abscess in right lower quadrant with resolving endometritis. Will discuss drain placement of abscess this a.m. with radiology versus proceeding with surgery. Will make n.p.o. in anticipation of one of these interventions. Continuing Zosyn for now.
--- NOTE | 2018-10-16 08:21 | PN.OBGYN_ITS ---
Patient Problems: Active and Suspected Problems (Last Updated 10/06/18 @ 20:57 by Janell Ramirez MD) pelvic abscess (Acute) Subjective: Reports pain localized to right lower abdomen. Denies fever or chills since early this morning. Passing flatus. Has decreased appetite. Infant is with paternal grandmother. OOB and ambulating. Objective: avss - Physical Exam General: Alert, Oriented x3, Cooperative, No apparent distress HEENT: Atraumatic, Normocephalic Lungs: Normal air movement Cardiovascular: Regular rate, Regular Rhythm Abdomen: Soft, Non-Distended, - - Fundus firm and nontender, + RLQ tenderness without rebound or guarding Extremities: No Calf Tenderness Neurological: Neuro grossly intact Psych/Mental Status: Normal Affect, Appropriate, Alert and oriented to time, place, person, mood and affect Vital Signs Temp Pulse Resp BP Pulse Ox 100.8 F H 95 16 138/85 H 95 10/16/18 05:05 10/16/18 03:48 10/16/18 03:48 10/16/18 03:48 10/16/18 03:48 Oxygen Delivery Method Room Air Weight: 91.6 kg Body Mass Index (BMI) 34.7 Intake and Output for Last 24 Hours 10/14/18 10/15/18 10/16/18 23:59 23:59 23:59 Intake Total 1035 / 1035 2885 / 2885 1296 / 1296 Output Total 400 / 400 Balance 635 / 635 2885 / 2885 1296 / 1296 Laboratory Tests Past 24 Hrs 10/16/18 04:50 WBC 22.0 H RBC 3.41 L Hgb 10.7 L Hct 32.4 L MCV 95.0 MCH 31.4 MCHC 33.0 RDW 12.7 RDW Differential 42.7 Plt Count 381 MPV 8.3 Immature Gran % (Auto) 0.900 Neut % (Auto) 87.2 H Lymph % (Auto) 6.6 L [place] % (Auto) 4.5 Eos % (Auto) 0.6 Baso % (Auto) 0.2 Absolute Neuts (auto) 19.2 H Absolute Lymphs (auto) 1.45 Total Counted Not Reportable Medical Necessity - Tobacco Use Smoking Status: Current every day smoker Assessment/Plan All Active Problems (Last Updated 10/06/18 @ 20:57 by Janell Zuñiga MD) Status post section (Acute) Maternal fever during labor (Acute) pelvic abscess (Acute) 22yo POD#9 s/p PLTCS readmitted with fever, leukocytosis and right pelvic abscess. -CT reviewed -?pyelonephritis with abscess and patient with gallbladder distension/edema -wbc nadired to 22 with IV Zosyn - consider IR drainage. Call to Dr. Narvaez for IR consultation - message left on machine this am requesting call back. -Will continue IV antibiotics in interim -Blood cultures pending
--- NOTE | 2018-10-16 11:48 | CASEMGMT ---
Introduced role of CM and purpose of RN CM assessment to patient. Sleeping, arousable Alert/Oriented and agrees/able to participate in discussion. Admitting Dx/CC: Pelvic Abcess. CC: Lower Abd discomfort, s/p 10/06/18. Patient states not breast feeding and denies any needs for baby while admitted, states good family support. Baseline: Independent with ambulation and ADL's PCP: Denies, Refused offered list and states knows where to find PCP. Specialists: Saran Burroughs Preferred Pharmacy: [facility] Info Insurance: [employer] Prescription Benefit: yes LNOK: Deb Polo-Mother Living Arrangements: Lives with her boyfriencricket Clancy in a 2 story Home, Bedroom on top floor. Transportation: Devanfriencricket Clancy # [phone] DME: none, No preference for DME Company. HHC: Denies HH or LTC in past, no preference. DC PLAN: Home. KYLAH Goldman
--- NOTE | 2018-10-16 11:50 | CT_ITS ---
PROCEDURE: CT DIRECTED ABSCESS DRAINAGE, PERITONEAL DATE OF EXAMINATION: October 16, 2018. INDICATION: Female, 22 years old. Right pelvic abscess following a section. PHYSICIAN: Saran Burroughs M.D. CONSENT: Written informed consent was obtained having explained the risks, benefits and alternatives in detail with the patient who accepted the risks and agreed to proceed. Laboratory review and clinical assessment was performed. CONSCIOUS SEDATION PROTOCOL: The Drugs used were: 3 mg Versed, IV., and 75 mcg Fentanyl, IV. The sedation time was: 12 minutes. Conscious sedation was started at the 1:08 PM and terminated at 1:20 PM. The conscious sedation protocol was independently monitored. RADIATION DOSAGE (If Supplied By Facility): CTDIvol = ( 21.5 ) mGy, DLP = ( 543.43 ) mGycm TECHNIQUE: CT sections were made through the abdomen and pelvis revealing an abscess in the right hemipelvis.. The skin surface was prepped and draped in a sterile fashion. Puncture of this collection was performed initially with a 8. 5 [place] catheter. Drainage catheter was then inserted into the collection and formed into position. No fluid was aspirated at this time. This most likely represents a phlegmon. The catheter was sutured into position to allow for continued drainage. Followup CT sections reveals good position of the catheter. CT/CT Guidance Abscess Drg w/Cath IMPRESSION: 1. CT directed drainage of a fluid collection using CT image guidance and image documentation as described. 2. Conscious Sedation protocol utilized with independent monitoring Electronically Signed: Saran Burroughs MD at 14:11 EST , Service support ,
[2018-10-16] MEDS: Midazolam 2 MG/2 ML Syringe (12:59)
[2018-10-16] MEDS: fentaNYL 100 MCG/2 ML Ampul (13:02)
[2018-10-16] MEDS: Midazolam 2 MG/2 ML Syringe IV (13:13)
[2018-10-16] MEDS: fentaNYL 100 MCG/2 ML Ampul IV (13:13)
[2018-10-16 13:43] LABS: Pathologist Review Reviewed
[2018-10-17] MEDS: Acetaminophen 325 MG Tablet 650 MG PO ×3 (02:29→17:14)
[2018-10-17 02:33] VITALS: BP 160/82; PULSE 79; RESP 18; TEMP 36.9; O2SAT 95
[2018-10-17] MEDS: Ketorolac 30 MG/ML Syringe IV ×2 (03:41→11:02)
--- NOTE | 2018-10-17 04:42 | NURSING ---
PT REQUESTING A BED TO PUT HER 8 MONTH OLD BABY. INFORMED MOTHER THAT HOSPITAL IS NOT ALLOWING ANYONE UNDER THE AGE OF 14 BECAUSE OF THE FLU. PT VERBALIZED UNDERSTANDING.
[2018-10-17 07:02] LABS: Anion Gap 7 (5-15); BUN 5 mg/dL (7-18); BUN/Creat Ratio 10.7 RATIO (10-20); Calcium,Total 8.2 mg/dL (8.5-10.1); Chloride 110 mmol/L (98-107); Creatinine, Serum 0.47 mg/dL (0.55-1.02); EST Glomerular Filtration Rate 179 mL/min (>60); Est Glom Filt Rate - Afr Amer 216 mL/min (>60); Estimated Creatinine Clearance 164.88 ml/min; Glucose 81 mg/dL (74-106); Potassium 3.7 mmol/L (3.5-5.1); Sodium Level 140 mmol/L (136-145)
[2018-10-17 07:23] LABS: Absolute Lymphocyte Count 1.79 X10^3/ul (0.83-4.51); Absolute Neutrophil Count 19.8 X10^3/uL (2.0-7.7); Basophil# 0.04 X10^3/uL; Basophil% 0.2 % (0-1); Eosinophil# 0.13 X10^3/uL; Eosinophils% 0.6 % (0-5); Hematocrit 32.8 % (37-47); Lymphocyte # 1.79 X10^3/ul (4.0); Lymphocyte % 7.7 % (19-41); Mean Corp Hgb Conc 33.5 g/gl (32-36); Mean Corpuscular Hgb 31.2 pg (27.0-32.0); Mean Corpuscular Volume 92.9 fL (81-99); Mean Platelet Vol. 8.5 fl (6.2-12.0); Monocyte# 1.18 X10^3/uL; Monocyte% 5.1 % (0-10); Neutrophil # 19.83 X10^3/uL (2.7-7.7); Neutrophil % 85.5 % (47-70); Platelet Count 363 K/mm3 (150-450); RBC Distribution Width SD 43.9 fl (35.1-43.9); Red Blood Count 3.53 M/mm3 (4.2-5.4); White Blood Count 23.2 K/mm3 (4.4-11.0)
[2018-10-17 07:24] LABS: Differential Indicated SCAN CRITERIA MET; POSITIVE COUNT NO; POSITIVE DIFFERENTIAL NO; POSITIVE MORPHOLOGY YES
[2018-10-17 07:42] VITALS: O2SAT 94
--- NOTE | 2018-10-17 08:04 | PN.OBGYN_ITS ---
Patient Problems: Active and Suspected Problems (Last Updated 10/06/18 @ 20:57 by Janell Ramirez MD) pelvic abscess (Acute) Subjective: Denies fever overnight or chills. Has decreased appetite. She reports painfulness at drain site and in right lower abdomen. OOB. Passing flatus. Denies dysuria or back pain. She notes some pain at end of urination in her lower abdomen however. Denies headache, vision changes. Objective: Tm 101.2 VSS - Physical Exam General: Alert, Oriented x3, Cooperative, No apparent distress HEENT: Atraumatic, Normocephalic Lungs: Clear to auscultation, Normal air movement, No rhonchi, No wheeze, No rales Cardiovascular: Regular rate, Regular Rhythm, Normal S1, Normal S2 Abdomen: Bowel Sounds Present, Soft, Non Tender, Non-Distended, - - No CVA tenderness, no fundal tenderness, incisional dressing c/d/i Extremities: No edema, No Calf Tenderness Neurological: Deep Tendon Reflexes 2+/4 and Symmetrical, Neuro grossly intact, - - No clonus Psych/Mental Status: Normal Affect, Appropriate, Flat Affect, - - (flat affect is baseline), Alert and oriented to time, place, person, mood and affect Vital Signs Temp Pulse Resp BP Pulse Ox 98.5 F 79 18 160/82 H 94 10/17/18 02:33 10/17/18 02:33 10/17/18 02:33 10/17/18 02:33 10/17/18 07:42 Oxygen Flow Rate (L/min) [4] 2 Oxygen Flow Rate (L/min) [3] 2 Oxygen Flow Rate (L/min) [2] 2 Oxygen Flow Rate (L/min) [1 ( 2 Initial Baseline)] Oxygen Delivery Method [4] Nasal Cannula Oxygen Delivery Method [3] Nasal Cannula Oxygen Delivery Method [2] Nasal Cannula Oxygen Delivery Method [1 ( Nasal Cannula Initial Baseline)] Oxygen Delivery Method Room Air Weight: 91.6 kg Body Mass Index (BMI) 34.7 Intake and Output for Last 24 Hours 10/15/18 10/16/18 10/17/18 23:59 23:59 23:59 Intake Total 2885 / 2885 3486 / 3486 1221 / 1221 Output Total 0 / 0 0 / 0 Balance 2885 / 2885 3486 / 3486 1221 / 1221 Laboratory Tests Past 24 Hrs 10/14/18 10/17/18 10/17/18 03:56 06:15 06:15 WBC 23.2 H RBC 3.53 L Hgb 11.0 L Hct 32.8 L MCV 92.9 MCH 31.2 MCHC 33.5 RDW 13.0 RDW Differential 43.9 Plt Count 363 MPV 8.5 Immature Gran % (Auto) 0.900 Neut % (Auto) 85.5 H Lymph % (Auto) 7.7 L [place] % (Auto) 5.1 Eos % (Auto) 0.6 Baso % (Auto) 0.2 Absolute Neuts (auto) 19.8 H Absolute Lymphs (auto) 1.79 Total Counted Not Reportable Diff Path Review Reviewed Sodium 140 Potassium 3.7 Chloride 110 H Carbon Dioxide 23.0 Anion Gap 7 BUN 5 L Creatinine 0.47 L Estim Creat Clear Calc 164.88 Est GFR (MDRD) Af Amer 216 Est GFR (MDRD) Non-Af 179 BUN/Creatinine Ratio 10.7 Glucose 81 Calcium 8.2 L Medical Necessity - Tobacco Use Smoking Status: Current every day smoker Assessment/Plan All Active Problems (Last Updated 10/06/18 @ 20:57 by Janell Zuñiga MD) pelvic abscess (Acute) Status post section (Acute) Maternal fever during labor (Acute) 22yo POD#10 s/p PLTCS readmitted with fever, leukocytosis and right pelvic abscess; elevated BPs -ID: s/p percutaneous drain insertion yesterday - serosanguinous drainage. No significant regression of wbc despite continued antibiotics and drainage. Increased Zosyn frequency to q6h. Will obtain ID consultation. Blood cultures pending -CV: Hypertension with no evidence of preeclampsia on exam - will f/u LFTs this am. Start Lisinopril.
[2018-10-17 08:29] LABS: AST(SGOT) 14 U/L (15-37); Alanine Aminotransfer ALT/SGPT 21 U/L (13-56); Albumin, Serum 1.8 g/dL (3.2-5.0); Alkaline Phosphatase 249 U/L (45-117); Bilirubin, Direct 0.13 mg/dL (0.00-0.30); Globulin 4.3 g/dL (2.2-4.2); Protein, Total 6.1 g/dL (6.4-8.2)
[2018-10-17 08:36] VITALS: BP 137/87; PULSE 78; RESP 20; TEMP 37.4; O2SAT 99
--- NOTE | 2018-10-17 10:18 | PCM.RX.CS ---
Consult Pharmacy has been consulted to manage selected antiobiotic: Vancomycin Type of Consult: New start Suspected Infection: Skin/Soft tissue Prior Doses of Antibiotics Received/Current Regimen: NEW START Labs: Sodium 140 mmol/L (136-145) 10/17/18 06:15 Potassium 3.7 mmol/L (3.5-5.1) 10/17/18 06:15 Chloride 110 mmol/L (98-107) H 10/17/18 06:15 Carbon Dioxide 23.0 mmol/L (21.0-32.0) 10/17/18 06:15 Anion Gap 7 (5-15) 10/17/18 06:15 BUN 5 mg/dL (7-18) L 10/17/18 06:15 Creatinine 0.47 mg/dL (0.55-1.02) L 10/17/18 06:15 Est GFR (MDRD) Af Amer 216 mL/min (>60) 10/17/18 06:15 Est GFR (MDRD) Non-Af 179 mL/min (>60) 10/17/18 06:15 BUN/Creatinine Ratio 10.7 RATIO (10-20) 10/17/18 06:15 Glucose 81 mg/dL (74-106) 10/17/18 06:15 CHECK VANCOMYCIN TROUGH PRIOR TO 4TH DOSE Weight used for dosin.6 kg Estimated Creatinine Clearance: 165 Goal Trough: 15-20 mcg/mL - LOADING DOSE = 2 GRAMS FOLLOWED BY 1 GRAM Q8H. VANCO TROUGH PRIOR TO 4TH DOSE Pharmacy Plan for Drug Dosing: Pharmacy Service will continue to monitor and adjust dosing as required.
[2018-10-17 10:57] VITALS: BP 123/79; PULSE 91; RESP 18; TEMP 36.9; O2SAT 99
[2018-10-17] MEDS: 0.9% NaCl IVPB Med Flush (250 mL) 15 ML IV (10:58)
[2018-10-17] MEDS: 0.9% NaCl Peripheral Flush Adult/Peds IV ×3 (11:00→22:05)
[2018-10-17] MEDS: Lisinopril 5 MG Tablet PO (11:00)
[2018-10-17] MEDS: Enoxaparin 40 MG/0.4 ML Syringe SC (11:01)
--- NOTE | 2018-10-17 11:14 | CON.PCM_ITS ---
Problem List (1) pelvic abscess Status: Acute Reason for Consult: abscess Consulted by: Dr. Brady History of Present Illness: The patient is a 22 year old F s/p 10/08/18 complicated by intrapartum fever who presented 10/14 with fever, nausea, and lower abd pain. Baby doing well. No redness or drainage around incision site. CT on admission showed possible abscess. Still with fever and leukocytosis despite zosyn for several days. Drain placed 10/16, but no fluid obtained. Feeling about the same, still some nausea. Fever last night to 102.2. No h/o MRSA or skin abscess/boils, but her sister does have recurrent boils. Full ROS performed and neg except as noted above. - Medical History Allergies/Adverse Reactions: Allergies No Known Allergies Allergy (Verified 10/14/18 03:25) Home Medications: Ambulatory Orders Medication Instructions Recorded Tablet 1 tab PO DAILY 10/06/18 RX: Ibuprofen [Motrin] 600 mg PO Q8H PRN PRN #30 tablet 10/10/18 RX: Senna/Docusate Sodium 1 - 2 tablet PO DAILY PRN #60 10/10/18 [Senokot-S] tablet - Social History SMOKING STATUS:: Current every day smoker Vital Signs Temp Pulse Resp BP Pulse Ox 98.5 F 91 18 123/79 H 99 10/17/18 10:57 10/17/18 10:57 10/17/18 10:57 10/17/18 10:57 10/17/18 10:57 Oxygen Flow Rate (L/min) [4] 2 Oxygen Flow Rate (L/min) [3] 2 Oxygen Flow Rate (L/min) [2] 2 Oxygen Flow Rate (L/min) [1 ( 2 Initial Baseline)] Oxygen Delivery Method [4] Nasal Cannula Oxygen Delivery Method [3] Nasal Cannula Oxygen Delivery Method [2] Nasal Cannula Oxygen Delivery Method [1 ( Nasal Cannula Initial Baseline)] Oxygen Delivery Method Room Air Weight: 91.6 kg Body Mass Index (BMI) 34.7 Laboratory Tests Past 24 Hrs 10/14/18 10/17/18 10/17/18 03:56 06:15 06:15 WBC 23.2 H RBC 3.53 L Hgb 11.0 L Hct 32.8 L MCV 92.9 MCH 31.2 MCHC 33.5 RDW 13.0 RDW Differential 43.9 Plt Count 363 MPV 8.5 Immature Gran % (Auto) 0.900 Neut % (Auto) 85.5 H Lymph % (Auto) 7.7 L [place] % (Auto) 5.1 Eos % (Auto) 0.6 Baso % (Auto) 0.2 Absolute Neuts (auto) 19.8 H Absolute Lymphs (auto) 1.79 Total Counted Not Reportable Diff Path Review Reviewed Sodium 140 Potassium 3.7 Chloride 110 H Carbon Dioxide 23.0 Anion Gap 7 BUN 5 L Creatinine 0.47 L Estim Creat Clear Calc 164.88 Est GFR (MDRD) Af Amer 216 Est GFR (MDRD) Non-Af 179 BUN/Creatinine Ratio 10.7 Glucose 81 Calcium 8.2 L Total Bilirubin Direct Bilirubin AST ALT Alkaline Phosphatase Total Protein Albumin Globulin 10/17/18 06:15 WBC RBC Hgb Hct MCV MCH MCHC RDW RDW Differential Plt Count MPV Immature Gran % (Auto) Neut % (Auto) Lymph % (Auto) [place] % (Auto) Eos % (Auto) Baso % (Auto) Absolute Neuts (auto) Absolute Lymphs (auto) Total Counted Diff Path Review Sodium Potassium Chloride Carbon Dioxide Anion Gap BUN Creatinine Estim Creat Clear Calc Est GFR (MDRD) Af Amer Est GFR (MDRD) Non-Af BUN/Creatinine Ratio Glucose Calcium Total Bilirubin 0.30 Direct Bilirubin 0.13 AST 14 L ALT 21 Alkaline Phosphatase 249 H Total Protein 6.1 L Albumin 1.8 L Globulin 4.3 H - Other Studies Radiology: [] reviewed Other Studies: [] Route of nutrition/ use of supplements: [] Nutritional Intake: [] IV Site: [] Bob Catheter: [] - Physical Exam General: Alert, Oriented x3, Cooperative, No apparent distress HEENT: Atraumatic, PERRLA, EOMI Neck: Supple, No Nodes Lungs: Clear to auscultation, Normal air movement Cardiovascular: Regular rate, Regular Rhythm, No murmurs Abdomen: Soft, Non Tender, Non-Distended, - - RLQ drain in place, suprapubic incision, no drainage or redness Extremities: No edema Skin: No rashes IV Site: Peripheral, without redness Musculoskeletal: No Tenderness to Palpation of Joints or Extremities Neurological: Cranial nerves II-XII grossly intact - Assessment/Plan Antibiotics: [] Assessment/Plan: [] Active and Suspected Problems (Last Updated 10/06/18 @ 20:57 by Janell Ramirez MD) pelvic abscess (Acute) Drain placed 10/16 but no fluid obtained. On zosyn, rising fever, stable leukocytosis. Will add vanc for empiric mrsa coverage. If she does not show improvement, may need surgical exploration. Will follow, thank you.
--- NOTE | 2018-10-17 14:53 | CASEMGMT ---
Social Work Note SW received referral for pt's FOLatonya being concerned with losing job as he has been home taking care of bed while pt is at [facility]. SW met with pt. Pt's baby and FOB present in room. Pt states that FOB is named Kasi and that pt lives with Kasi and Kasi's mom. Kasi currently sleeping during this worker's visit. Pt states that Kasi's mom usually helps with taking care of the baby with needed but today she was unable to do so. Pt states that Kasi works third shift and needs to sleep during the day. Pt states that Kasi does have concerns with losing his job due to taking days off to take care of the baby. SW informed pt to once Kasi wakes up to encourage him to speak to his employer about FMLA and to talk to his employer if physician needs to sign a note stating pt was at [facility] on dates for medical reasons. Pt states that she will do so. Pt states that she is unable to leave [facility] due to medical reasons. NILTON asked pt how she has been since having the baby. Per previous visits, pt was just at [facility] 10/06/2018 for . Pt states I have been sick. SW offered support to pt. SW reviewed previous notes and while pt was at [facility] referral was made. SW informed pt that [facility] will be in contact with pt to discuss services available. Pt denied additional concerns or needing resources at this time. SW informed pt to let staff know if any additional concerns arise and if she needs any additional resources. Pt states understanding. Shu Yun MARBLE MACHINE OPERATOR, COLD PRESS LOADER
--- NOTE | 2018-10-17 15:30 | NURSING ---
Shu mend worker aware of pt room situation- Pt feeding and craddling/carrying into restroom with her while infant holding bottle and pt with ivac/pole use with left arm, male visitor continues to rest with eyes closed in reclining chair in room. pt and infant safety concerns including not able to get second iv line started d/t pt refusal because i need to feed and take care of him. Shu Silvestre CM states she will notify Alana MONTIEL who is familiar with pt case from past OB admission
--- NOTE | 2018-10-17 15:40 | CASEMGMT ---
Social Work Note RN updated this worker regarding pt's not taking care of self medically and carrying infant around the room. NILTON and RN CM discussed case and thought Barney CARSON ([facility] [facility] NILTON) may be good to contact as she and her [employer] student met with pt last week. NILTON placed a call to Barney Wilkes who states she will be up to see pt. Shu Yun COMMONWEALTH ATTORNEY, TROUSSEAU CONSULTANT
--- NOTE | 2018-10-17 16:30 | CASEMGMT ---
Social Work Note Date and Time of Referral: Referred By: Manager Nc Danilo Yun Date and Time of Intervention: 10.17.18, [id number] Reason for Referral: follow up with a mother who is in the hospital with significant medical issues; concern about support system available to patient. Informant: medical record and patient herself Personal Status Living Arrangements: Lives with boyfriend/father of baby Kasi Clancy, Kasi?s mother Cuauhtemoc Clancy and patient?s baby who was born on 10.08.2018 also named Kasi Clancy. Patient reports bedroom is upstairs, but that patient will be sleeping on main floor upon home going. Patient reports will be sleeping on a couch or recliner, reports to feel both are adequate, supportive and comfortable options. Education: Highest level of completion is trade school. Patient reports ability to read, write, and to understand what is read. Employment: Patient is not currently employed though has worked in the past. Patient?s boyfriend Kasi works third shift at [employer]. Patient reports Kasi has had this job now for about 4 months and is hired in as a full-time employee. Family Dynamics/Relationships: Patient has previously denied any form of abuse in relationship with Kasi. Has been involved with Kasi since December 2017. Patient has identified a strained relationship with own biological family due to past issues when patient was a child. Support System: Patient has indicated that Kasi and Cuauhtemoc are patient?s primary support system and are helpful to patient and to the baby. Medical History and Functioning: Medical History and Reason for admission: Patient report that currently admitted for issues related to abdominal pain and need for IV antibiotics. Concern for abscess and wound separation per medical record. Patient is G1, P1 delivering baby Kasi via Caesarian section delivery. ADLs prior to admission: Normally independent in all self-care needs. Does not use any DME. Programs/Agencies Involved: [facility]: has food and medical. [facility]: has information on this, with plans to apply now that baby is born. Due to how patient has felt medically has not yet been able to make to [facility] office. Transportation: Reports to have reliable transportation of own. Other: Reports history with [facility]; Had a Help Me Grow referral after baby was born but so far patient has not had any contact yet. Agrees to another referral to [facility]. No other agency involvement reported or indicated. Substance Abuse History and Current Pattern of Alcohol: History of drinking alcohol in the past, not reported as problematic however, none during and none since . Prescriptions Drugs: History of using Adderall as a teen for weight loss. 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 Drug screen at delivery was negative. Marijuana, Heroin, Cocaine, or other illicit drugs: Denies any history of current issues. Tobacco: is a tobacco smoker, about a half a pack a day. History of Treatment: No treatment history, quit on own with help of a boyfriend and patient moving in with her father. Mental Health History and Current Cognitive Status Diagnoses: Patient has history of depression, anxiety, and self-injury as a teen. Patient had [place] Depression Screen done during at care visit on 04.10.2018 with a score of 2 (10 to 12 or higher is indicative of current depressive symptoms) (Same screening tool done this date, refer to wire wrapper machine operator link). Current Stressors: Patient is since 10.07.2018, delivered baby unexpectedly via caesarian delivery, since returning home has developed wound issues and pain. Patient has been trying to manage physical symptoms while also caring and attending to baby. Patient reports it has been stressful since admission due to being from her baby, that misses the baby. Note, that patient's normal coping is to go outside or to smoke cigarettes, both of which patient has been unable to do while in the hospital. SI or HI: No reports of any homicidal thoughts. Patient has history of an ED visit in 2016 for suicidal thoughts, no plan or attempt. Referred to outpatient counseling at that time. Has denied any thoughts, plans, intent since that time. Patient has denied any self-injurious behavior seen teenage years, denies any thoughts or desires for such during . Treatment History: [facility] as a teen. Medications: None currently. Current Cognitive/Mental Status: Patient is alert and oriented to all spheres. Interactive and attentive to conversation with this board writer. Thoughts process logical, speech pattern clear, good eye contact, calm interactions, smiled at appropriate times but affect constricted overall. Patient attentive to baby during social work visit, holding baby gently, gazing at baby and touching baby. Patient able to express understanding that need to care for own medical needs and voices a desire to get better, feel better and go home. Patient?s Identified Concerns: Misses baby, would like to have a place for baby to sleep when the baby visits, feel poor physically and wants to figure out what is going on so that can go home. Worried about household finances as patient?s boyfriend is the sole income provider to this family (pay rent to Kasi?s mother) and need income for baby. Patient reports Kasi will talk to boss about being able to take time off work but if this happens not sure the time off will be paid. Interventions: Addressed staff concerns with patient regarding limited support and that patient was not accepting care for self, rather focusing on care of baby while Kasi slept in the room. Addressed with patient the importance of keeping a steady flow of antibiotics in patient?s system and take breaks from this type of medicine does not really aid in recovery. This board writer obtained a baby crib from the for patient to use when baby visits. This board writer agreed to make some calls to local agencies to see if there are any options to help with financial concerns. Will also make a new [facility] referral [place] Depression screen done and score of 3 identified. Patient Response: Patient reports willingness to accept all care, that never actually refused care but reports that when new IV line was being started the baby was crying, Kasi was sleeping (had been up all night at work, cared for the baby all day, and was to go back to work again in the evening). Patient reports was feeling stressed in the moment and then became stressed that the new IV line was not easily being inserted. It was too much at once. Patient reports now that the baby is asleep, willing to have RN work on a new IV line. Patient also states willingness to wake Kasi up if baby starts to cry when RN is performing next intervention with patient. Patient adamant that both Kasi and Rhoma have been helping with the baby, have been caring for the baby adequately. Patient reports Rhoma can care for the baby during the day but does work two days a week, and this morning had to get some things done, therefore Kasi was caring for the baby today, and had been going on no sleep, so therefore slept upon arrival to visit patient. Patient states Kasi and baby will only be visiting until about 1900 today. Patient expressed much gratitude for crib being arranged and showed a brighter affect when found this could be offered to patient. Patient expresses appreciation for 7th grade social studies teacher gathering resources for patient. Potential issues with baby identified: This board writer addressed with patient as to whether patient has gotten baby to the library clerk appointment (aftercare from delivery admission). Patient reports has not, that had an appointment but felt so badly this was not followed through. Addressed with patient that baby needs to see a doctor to check on growth and progress since . Explored with patient whether Kasi or Rhoma will be willing to take baby to the doctors. Patient states belief in the affirmative. Directed patient to have such conversation later today and that when 7th grade social studies teacher comes back will be following up to ensure this has been done, that an appointment is in place for the baby. Updated nursing staff to patient's agreement to accept care and stated willingness to wake Kasi up to help should patient and baby both need care at the same time. case management social worker for [employer] updated. Plan: Will be following up with patient again on 10.18.2018. -YAMILETH Sandoval, HEEL CEMENTER MACHINE
--- NOTE | 2018-10-17 16:30 | CASEMGMT ---
Social Work Note Date and Time of Referral: Referred By: Electro Plater Danilo Yun Date and Time of Intervention: 10.17.18, [id number] Reason for Referral: follow up with a mother who is in the hospital with significant medical issues; concern about support system available to patient. Informant: medical record and patient herself Personal Status Living Arrangements: Lives with boyfriend/father of baby Kasi Clancy, Kasi?s mother Cuauhtemoc Clancy and patient?s baby who was born on 10.08.2018 also named Kasi Clancy. Patient reports bedroom is upstairs, but that patient will be sleeping on main floor upon home going. Patient reports will be sleeping on a couch or recliner, reports to feel both are adequate, supportive and comfortable options. Education: Highest level of completion is trade school. Patient reports ability to read, write, and to understand what is read. Employment: Patient is not currently employed though has worked in the past. Patient?s boyfriend Kasi works third shift at [employer]. Patient reports Kasi has had this job now for about 4 months and is hired in as a full-time employee. Family Dynamics/Relationships: Patient has previously denied any form of abuse in relationship with Kasi. Has been involved with Kasi since December 2017. Patient has identified a strained relationship with own biological family due to past issues when patient was a child. Support System: Patient has indicated that Kasi and Cuauhtemoc are patient?s primary support system and are helpful to patient and to the baby. Medical History and Functioning: Medical History and Reason for admission: Patient report that currently admitted for issues related to abdominal pain and need for IV antibiotics. Concern for abscess and wound separation per medical record. Patient is G1, P1 delivering baby Kasi via Caesarian section delivery. ADLs prior to admission: Normally independent in all self-care needs. Does not use any DME. Programs/Agencies Involved: [facility]: has food and medical. [facility]: has information on this, with plans to apply now that baby is born. Due to how patient has felt medically has not yet been able to make to [facility] office. Transportation: Reports to have reliable transportation of own. Other: Reports history with [facility]; Had a Help Me Grow referral after baby was born but so far patient has not had any contact yet. Agrees to another referral to [facility]. No other agency involvement reported or indicated. Substance Abuse History and Current Pattern of Alcohol: History of drinking alcohol in the past, not reported as problematic however, none during and none since . Prescriptions Drugs: History of using Adderall as a teen for weight loss. 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 Drug screen at delivery was negative. Marijuana, Heroin, Cocaine, or other illicit drugs: Denies any history of current issues. Tobacco: is a tobacco smoker, about a half a pack a day. History of Treatment: No treatment history, quit on own with help of a boyfriend and patient moving in with her father. Mental Health History and Current Cognitive Status Diagnoses: Patient has history of depression, anxiety, and self-injury as a teen. Patient had [place] Depression Screen done during at care visit on 04.10.2018 with a score of 2 (10 to 12 or higher is indicative of current depressive symptoms) (Same screening tool done this date, refer to attacher link). Current Stressors: Patient is since 10.07.2018, delivered baby unexpectedly via caesarian delivery, since returning home has developed wound issues and pain. Patient has been trying to manage physical symptoms while also caring and attending to baby. Patient reports it has been stressful since admission due to being from her baby, that misses the baby. Note, that patient's normal coping is to go outside or to smoke cigarettes, both of which patient has been unable to do while in the hospital. SI or HI: No reports of any homicidal thoughts. Patient has history of an ED visit in 2016 for suicidal thoughts, no plan or attempt. Referred to outpatient counseling at that time. Has denied any thoughts, plans, intent since that time. Patient has denied any self-injurious behavior seen teenage years, denies any thoughts or desires for such during . Treatment History: [facility] as a teen. Medications: None currently. Current Cognitive/Mental Status: Patient is alert and oriented to all spheres. Interactive and attentive to conversation with this newswriter. Thoughts process logical, speech pattern clear, good eye contact, calm interactions, smiled at appropriate times but affect constricted overall. Patient attentive to baby during social work visit, holding baby gently, gazing at baby and touching baby. Patient able to express understanding that need to care for own medical needs and voices a desire to get better, feel better and go home. Patient?s Identified Concerns: Misses baby, would like to have a place for baby to sleep when the baby visits, feel poor physically and wants to figure out what is going on so that can go home. Worried about household finances as patient?s boyfriend is the sole income provider to this family (pay rent to Kasi?s mother) and need income for baby. Patient reports Kasi will talk to boss about being able to take time off work but if this happens not sure the time off will be paid. Interventions: Addressed staff concerns with patient regarding limited support and that patient was not accepting care for self, rather focusing on care of baby while Kasi slept in the room. Addressed with patient the importance of keeping a steady flow of antibiotics in patient?s system and take breaks from this type of medicine does not really aid in recovery. This newswriter obtained a baby crib from the for patient to use when baby visits. This newswriter agreed to make some calls to local agencies to see if there are any options to help with financial concerns. Will also make a new [facility] referral [place] Depression screen done and score of 3 identified. Patient Response: Patient reports willingness to accept all care, that never actually refused care but reports that when new IV line was being started the baby was crying, Kasi was sleeping (had been up all night at work, cared for the baby all day, and was to go back to work again in the evening). Patient reports was feeling stressed in the moment and then became stressed that the new IV line was not easily being inserted. It was too much at once. Patient reports now that the baby is asleep, willing to have RN work on a new IV line. Patient also states willingness to wake Kasi up if baby starts to cry when RN is performing next intervention with patient. Patient adamant that both Kasi and Rhoma have been helping with the baby, have been caring for the baby adequately. Patient reports Rhoma can care for the baby during the day but does work two days a week, and this morning had to get some things done, therefore Kasi was caring for the baby today, and had been going on no sleep, so therefore slept upon arrival to visit patient. Patient states Kasi and baby will only be visiting until about 1900 today. Patient expressed much gratitude for crib being arranged and showed a brighter affect when found this could be offered to patient. Patient expresses appreciation for professor of social work gathering resources for patient. Potential issues with baby identified: This newswriter addressed with patient as to whether patient has gotten baby to the educational psychology teacher appointment (aftercare from delivery admission). Patient reports has not, that had an appointment but felt so badly this was not followed through. Addressed with patient that baby needs to see a doctor to check on growth and progress since . Explored with patient whether Kasi or Rhoma will be willing to take baby to the doctors. Patient states belief in the affirmative. Directed patient to have such conversation later today and that when professor of social work comes back will be following up to ensure this has been done, that an appointment is in place for the baby. Updated nursing staff to patient's agreement to accept care and stated willingness to wake Kasi up to help should patient and baby both need care at the same time. hide worker for [employer] updated. Plan: Will be following up with patient again on 10.18.2018. -YAMILETH Sandoval, SHOPPER INSIGHTS MANAGER
--- NOTE | 2018-10-17 16:33 | NURSING ---
spoke with pharmacist summer- updated on med times, off schedule due to challenges with pt social situation and refusal of 2nd iv line. states med times adjusted, to give zosyn next and then give vanc when that is done.
[2018-10-17 16:56] VITALS: BP 131/91; PULSE 81; RESP 18; TEMP 38.3; O2SAT 98
[2018-10-17] MEDS: oxyCODONE 5 MG Tablet PO (17:14)
--- NOTE | 2018-10-17 19:04 | PN.OBGYN_ITS ---
Patient Problems: Active and Suspected Problems (Last Updated 10/06/18 @ 20:57 by Janell Ramirez MD) Separation of wound with drainage, (Acute) pelvic abscess (Acute) Subjective: Patient reports right lower abdominal pain persists. She denies nausea, vomiting, fever, chills. She indicates ID started her on additional antibiotics. Objective: VSS - Physical Exam General: Alert, Oriented x3, Cooperative, No apparent distress HEENT: Atraumatic, Normocephalic Lungs: Normal air movement Abdomen: Soft, Non-Distended, - - incisional dressing appears saturated and patient with RLQ tenderness, scant serosanguinous drainage from JOHAN Extremities: No Calf Tenderness Neurological: Neuro grossly intact Psych/Mental Status: Normal Affect, Appropriate, Alert and oriented to time, place, person, mood and affect Vital Signs Temp Pulse Resp BP Pulse Ox 100.9 F H 81 18 131/91 H 98 10/17/18 16:56 10/17/18 16:56 10/17/18 16:56 10/17/18 16:56 10/17/18 16:56 Oxygen Flow Rate (L/min) [4] 2 Oxygen Flow Rate (L/min) [3] 2 Oxygen Flow Rate (L/min) [2] 2 Oxygen Flow Rate (L/min) [1 ( 2 Initial Baseline)] Oxygen Delivery Method [4] Nasal Cannula Oxygen Delivery Method [3] Nasal Cannula Oxygen Delivery Method [2] Nasal Cannula Oxygen Delivery Method [1 ( Nasal Cannula Initial Baseline)] Oxygen Delivery Method Room Air Weight: 91.6 kg Body Mass Index (BMI) 34.7 Intake and Output for Last 24 Hours 10/15/18 10/16/18 10/17/18 23:59 23:59 23:59 Intake Total 2885 / 2885 3486 / 3486 1866 / 1866 Output Total 0 / 0 0 / 0 Balance 2885 / 2885 3486 / 3486 1866 / 1866 Laboratory Tests Past 24 Hrs 10/17/18 10/17/18 10/17/18 06:15 06:15 06:15 WBC 23.2 H RBC 3.53 L Hgb 11.0 L Hct 32.8 L MCV 92.9 MCH 31.2 MCHC 33.5 RDW 13.0 RDW Differential 43.9 Plt Count 363 MPV 8.5 Immature Gran % (Auto) 0.900 Neut % (Auto) 85.5 H Lymph % (Auto) 7.7 L [place] % (Auto) 5.1 Eos % (Auto) 0.6 Baso % (Auto) 0.2 Absolute Neuts (auto) 19.8 H Absolute Lymphs (auto) 1.79 Total Counted Not Reportable Sodium 140 Potassium 3.7 Chloride 110 H Carbon Dioxide 23.0 Anion Gap 7 BUN 5 L Creatinine 0.47 L Estim Creat Clear Calc 164.88 Est GFR (MDRD) Af Amer 216 Est GFR (MDRD) Non-Af 179 BUN/Creatinine Ratio 10.7 Glucose 81 Calcium 8.2 L Total Bilirubin 0.30 Direct Bilirubin 0.13 AST 14 L ALT 21 Alkaline Phosphatase 249 H Total Protein 6.1 L Albumin 1.8 L Globulin 4.3 H Medical Necessity - Tobacco Use Smoking Status: Current every day smoker Assessment/Plan All Active Problems (Last Updated 10/06/18 @ 20:57 by Janell Zuñiga MD) Separation of wound with drainage, (Acute) pelvic abscess (Acute) Status post section (Acute) Maternal fever during labor (Acute) 22yo POD#10 s/p PLTCS readmitted with fever, leukocytosis and right pelvic abscess; elevated BPs -Incisional dressing removed with serosanguineous drainage present. Patient denies abdominal trauma apart from wearing pants at incision today. Incision was probed with approximately 1cm superficial separation, 5mm occurring just right of midline with bleeding present. No purulent drainage expressed. Pressure held x 4 minutes and pressure dressing then applied. Will hold Toradol and tomorrow am Lovenox dosing. Will apply belly binder for additional compression. -ID consult appreciated. Continue Zosyn/Vanc. Reviewed goal 24-48h afebrile on IV abx, then transition to PO antibiotics without fever.
[2018-10-17 20:16] VITALS: BP 127/78; PULSE 101; RESP 18; TEMP 36.7; O2SAT 97
[2018-10-17] MEDS: Vancomycin IV 1,000 MG/200 ML BAG 200 MG IV (20:51)
[2018-10-17] MEDS: oxyCODONE 5 MG Tablet 10 MG PO (22:03)
[2018-10-17 22:08] LABS: Bacteria 0 SEEN /hpf (None Seen); Mucous, Urine 0 SEEN /hpf (<or=2+)
[2018-10-17 22:10] LABS: Color, Urine Yellow (Yellow); Glucose, Dipstick Normal (Normal); Ketone-Dipstick Negative (Negative); Leukocyte Esterase-Dipstick 500 /ul (Negative); Nitrite-Dipstick Negative (Negative); Occult Blood-Urine 250 /ul (Negative); Protein-Dipstick 30 mg/dl (Negative); Specific Gravity, Urine 1.005 (1.002-1.030); Urine Bilirubin Dipstick Negative (Negative); Urine Clarity Cloudy (Clear); Urine Urobilinogen Normal (Normal)
[2018-10-17 22:20] LABS: Red Blood Cells-Urine 10-25 SEEN /hpf (0-5); Squamous Epithelial Cells - UA 0-5 SEEN /hpf (5-10); White Blood Cells 50-100 SEEN /hpf (0-5)
[2018-10-18 02:12] VITALS: BP 121/76; PULSE 88; RESP 18; TEMP 36.9; O2SAT 99
[2018-10-18] MEDS: 0.9% NaCl Peripheral Flush Adult/Peds IV ×4 (03:24→15:14)
[2018-10-18] MEDS: Vancomycin IV 1,000 MG/200 ML BAG 200 MG IV (03:24)
[2018-10-18] MEDS: oxyCODONE 5 MG Tablet 10 MG PO ×4 (04:11→23:47)
[2018-10-18 06:30] LABS: BUN 5 mg/dL (7-18); Creatinine, Serum 0.65 mg/dL (0.55-1.02); EST Glomerular Filtration Rate 121 mL/min (>60); Estimated Creatinine Clearance 119.22 ml/min; Glucose 72 mg/dL (74-106)
[2018-10-18 06:31] LABS: Anion Gap 12 (5-15); BUN/Creat Ratio 7.6 RATIO (10-20); Calcium,Total 8.7 mg/dL (8.5-10.1); Chloride 108 mmol/L (98-107); Est Glom Filt Rate - Afr Amer 147 mL/min (>60); Sodium Level 138 mmol/L (136-145)
[2018-10-18 06:46] LABS: Absolute Neutrophil Count 20.6 X10^3/uL (2.0-7.7); Basophil# 0.05 X10^3/uL; Basophil% 0.2 % (0-1); Eosinophil# 0.18 X10^3/uL; Eosinophils% 0.7 % (0-5); Hematocrit 39.1 % (37-47); Hemoglobin 12.9 g/dl (12.0-15.0); Lymphocyte % 10.2 % (19-41); Mean Corpuscular Hgb 31.1 pg (27.0-32.0); Mean Corpuscular Volume 94.2 fL (81-99); Mean Platelet Vol. 8.9 fl (6.2-12.0); Monocyte# 0.98 X10^3/uL; Neutrophil # 20.62 X10^3/uL (2.7-7.7); Neutrophil % 83.7 % (47-70); Platelet Count 454 K/mm3 (150-450); RBC Distribution Width CV 13.1 % (11.6-14.6); RBC Distribution Width SD 45.5 fl (35.1-43.9); Red Blood Count 4.15 M/mm3 (4.2-5.4); White Blood Count 24.6 K/mm3 (4.4-11.0)
[2018-10-18 06:50] LABS: Differential Indicated SCAN CRITERIA MET; POSITIVE COUNT NO; POSITIVE DIFFERENTIAL YES; POSITIVE MORPHOLOGY NO
[2018-10-18 07:16] VITALS: O2SAT 97
[2018-10-18 08:31] VITALS: BP 127/81; PULSE 90; RESP 20; TEMP 39.4; O2SAT 98
[2018-10-18 09:36] LABS: International Normalized Ratio 1.2
[2018-10-18 09:37] LABS: Partial Thromboplast Time 34.1 Seconds (24.1-36.2)
[2018-10-18 09:50] LABS: Lactic Acid 0.8 mmol/L (0.4-2.0)
[2018-10-18 10:15] LABS: Vancomycin, Trough Level 13.7 ug/mL (5.0-15.0)
[2018-10-18] MEDS: Lactated Ringers 1,000 ML 125 ML IV (10:36)
[2018-10-18] MEDS: Acetaminophen 325 MG Tablet 650 MG PO ×3 (10:36→20:20)
[2018-10-18] MEDS: Lisinopril 5 MG Tablet PO (10:36)
--- NOTE | 2018-10-18 10:37 | PN.OBGYN_ITS ---
Patient Problems: Active and Suspected Problems (Last Updated 10/06/18 @ 20:57 by Janell Ramirez MD) Separation of wound with drainage, (Acute) pelvic abscess (Acute) Subjective: Manisha relates she felt pretty well yesterday afternoon, but notes R lower abdominal pain worsened today. Lochia is scant. Denies fever, chills, nausea, vomiting, chest pain, shortness of breath, cough, sore throat, ear pain, leg pain, urinary sx. She has been out of bed and ambulating. Passing flatus, had bowel movement. +headache. Objective: Tm/c 103 VSS - Physical Exam General: Alert, Oriented x3, Cooperative, No apparent distress HEENT: Atraumatic, Normocephalic Lungs: Clear to auscultation, Normal air movement Cardiovascular: Regular rate, Regular Rhythm, Normal S1, Normal S2 Abdomen: Bowel Sounds Present, Soft, Non-Distended, - - Scant JOHAN serous drainage. No rebound or guarding tenderness. Incisional dressing removed - no active bleeding, no drainage expressed from incisional wound. +R. CVA tenderness Extremities: No Calf Tenderness, - - 1+ b/l LE edema, no palpable cords Neurological: Neuro grossly intact Psych/Mental Status: Normal Affect, Appropriate, Alert and oriented to time, place, person, mood and affect Vital Signs Temp Pulse Resp BP Pulse Ox 103 F H 90 20 H 127/81 H 98 10/18/18 08:31 10/18/18 08:31 10/18/18 08:31 10/18/18 08:31 10/18/18 08:31 Oxygen Flow Rate (L/min) [4] 2 Oxygen Flow Rate (L/min) [3] 2 Oxygen Flow Rate (L/min) [2] 2 Oxygen Flow Rate (L/min) [1 ( 2 Initial Baseline)] Oxygen Delivery Method [4] Nasal Cannula Oxygen Delivery Method [3] Nasal Cannula Oxygen Delivery Method [2] Nasal Cannula Oxygen Delivery Method [1 ( Nasal Cannula Initial Baseline)] Oxygen Delivery Method Room Air Weight: 91.6 kg Body Mass Index (BMI) 34.7 Intake and Output for Last 24 Hours 10/16/18 10/17/18 10/18/18 23:59 23:59 23:59 Intake Total 3486 / 3486 1866 / 1866 1313 / 1313 Output Total 0 / 0 0 / 0 0 / 0 Balance 3486 / 3486 1865 / 1865 1313 / 1313 Laboratory Tests Past 24 Hrs 10/17/18 10/18/18 10/18/18 21:50 05:44 05:44 WBC 24.6 H RBC 4.15 L Hgb 12.9 Hct 39.1 MCV 94.2 MCH 31.1 MCHC 33.0 RDW 13.1 RDW Differential 45.5 H Plt Count 454 H MPV 8.9 Immature Gran % (Auto) 1.200 H Neut % (Auto) 83.7 H Lymph % (Auto) 10.2 L [place] % (Auto) 4.0 Eos % (Auto) 0.7 Baso % (Auto) 0.2 Absolute Neuts (auto) 20.6 H Absolute Lymphs (auto) 2.50 Total Counted Not Reportable Differential Comment COMMENT PT INR APTT Sodium 138 Potassium 4.0 Chloride 108 H Carbon Dioxide 18.0 L Anion Gap 12 BUN 5 L Creatinine 0.65 Estim Creat Clear Calc 119.22 Est GFR (MDRD) Af Amer 147 Est GFR (MDRD) Non-Af 121 BUN/Creatinine Ratio 7.6 L Glucose 72 L Lactic Acid Calcium 8.7 Urine Color Yellow Urine Clarity Cloudy Urine pH 7.0 Ur Specific [place] 1.005 Urine Protein 30 H Urine Glucose (UA) Normal Urine Ketones Negative Urine Occult Blood 250 H Urine Nitrite Negative Urine Bilirubin Negative Urine Urobilinogen Normal Ur Leukocyte Esterase 500 H Urine RBC 10-25 SEEN Urine WBC 50-100 SEEN Ur Squamous Epith Cells 0-5 SEEN Urine Bacteria 0 SEEN Urine Mucus 0 SEEN Vancomycin Trough 10/18/18 10/18/18 10/18/18 09:15 09:15 09:15 WBC RBC Hgb Hct MCV MCH MCHC RDW RDW Differential Plt Count MPV Immature Gran % (Auto) Neut % (Auto) Lymph % (Auto) [place] % (Auto) Eos % (Auto) Baso % (Auto) Absolute Neuts (auto) Absolute Lymphs (auto) Total Counted Differential Comment PT 15.0 H INR 1.2 APTT 34.1 Sodium Potassium Chloride Carbon Dioxide Anion Gap BUN Creatinine Estim Creat Clear Calc Est GFR (MDRD) Af Amer Est GFR (MDRD) Non-Af BUN/Creatinine Ratio Glucose Lactic Acid 0.8 Calcium Urine Color Urine Clarity Urine pH Ur Specific [place] Urine Protein Urine Glucose (UA) Urine Ketones Urine Occult Blood Urine Nitrite Urine Bilirubin Urine Urobilinogen Ur Leukocyte Esterase Urine RBC Urine WBC Ur Squamous Epith Cells Urine Bacteria Urine Mucus Vancomycin Trough 13.7 Medical Necessity - Tobacco Use Smoking Status: Current every day smoker Assessment/Plan All Active Problems (Last Updated 10/06/18 @ 20:57 by Janell Zuñiga MD) Separation of wound with drainage, (Acute) pelvic abscess (Acute) Status post section (Acute) Maternal fever during labor (Acute) 22yo POD#11 s/p PLTCS readmitted with fever, leukocytosis and right pelvic abscess; elevated BPs -Patient not septic appearing and no acute abdomen, <24h Vancomycin with continued fever, leukocytosis. +CVA tenderness now, thus question possible ureteral/renal involvement in process and drain with minimal non-purulent drainage approximately [address] a/p. Consider surgical exploration pending CT findings and clinical course in next 24 hours. Reviewed with patient potential ex lap via incision - risks reviewed including scarring, bleeding, infection, need for further surgery, injury to bowel/bladder/ureter, extended recovery course, possible need for hysterectomy, removal of tubes or ovaries. Patient reports understanding and questions answered to her satisfaction. She is in agreement with plan at this time. -Incision with no further bleeding following compression dressing. Superficial separation - no packing indicated at this time. No infection at this site. -Ambulation encouraged for DVT ppx given poorly tolerated Lovenox. -NPO at this time -f/u CT results
--- NOTE | 2018-10-18 10:52 | CT_ITS ---
STUDY: CT ABDOMEN AND PELVIS WITH CONTRAST REASON FOR EXAM: Female, 22 years old. Follow-up examination for pelvic abscess. Status post percutaneous drainage. RADIATION DOSAGE (If Supplied By Facility): CTDIvol = ( 11.28 ) mGy, DLP = ( 1001.36 ) mGycm TECHNIQUE: Transaxial images were obtained from the dome of the diaphragm to the symphysis pubis with oral contrast. Isovue 300 100ML IV/Oral was administered. Sagittal and coronal images were reconstructed. Individualized dose optimization techniques were used for this CT. COMPARISON: Comparison is made with prior study dated October 16, 2018. FINDINGS: Minimal degree of dependent basilar atelectasis. The visualized portions of the heart are within normal limits. Normal liver. Normal gallbladder and extrahepatic biliary system. Normal spleen. Normal pancreas. Normal bilateral adrenal glands. Normal right kidney. Normal left kidney. Normal visualized stomach. Normal small intestine. Normal colon. The appendix is visualized and appears normal. Normal abdominal aorta. Normal inferior vena cava. Normal retroperitoneum. Normal urinary bladder. A percutaneous drainage catheter is seen in the right lower quadrant fluid collection with the air within it. Since prior study, the abnormal collection has decreased in size. It presently measures 3.5 cm x 2.7 cm. Postoperative changes seen in the subcutaneous fat in the lower anterior abdominal wall. Normal osseous structures. CT/Abdomen/Pelvis WITH Contrast IMPRESSION: Interval decrease in size of the right hemipelvis abscess collection. The drainage catheter is seen within it. Electronically Signed: Saran Burroughs MD at 15:10 EST , Service support ,
--- NOTE | 2018-10-18 11:40 | PCM.RX.CS ---
Consult Pharmacy has been consulted to manage selected antiobiotic: Vancomycin Type of Consult: Follow-up Suspected Infection: Skin/Soft tissue Prior Doses of Antibiotics Received/Current Regimen: 1gm iv q8h Labs: Sodium 138 mmol/L (136-145) 10/18/18 05:44 Potassium 4.0 mmol/L (3.5-5.1) 10/18/18 05:44 Chloride 108 mmol/L (98-107) H 10/18/18 05:44 Carbon Dioxide 18.0 mmol/L (21.0-32.0) L 10/18/18 05:44 Anion Gap 12 (5-15) 10/18/18 05:44 BUN 5 mg/dL (7-18) L 10/18/18 05:44 Creatinine 0.65 mg/dL (0.55-1.02) 10/18/18 05:44 Est GFR (MDRD) Af Amer 147 mL/min (>60) 10/18/18 05:44 Est GFR (MDRD) Non-Af 121 mL/min (>60) 10/18/18 05:44 BUN/Creatinine Ratio 7.6 RATIO (10-20) L 10/18/18 05:44 Glucose 72 mg/dL (74-106) L 10/18/18 05:44 Vancomycin Trough 13.7 ug/mL (5.0-15.0) 10/18/18 09:15 Weight used for dosin.6 kg Estimated Creatinine Clearance: 119 ml/min Goal Trough: 15-20 mcg/mL Pharmacy Plan for Drug Dosing: Trough level of 10.18.18 in AM was 13.7 (goal range 15-20mcg/ml). Cr 0.65 and CrCl ~119. Will increase dose to 1250mg iv q8h. Repeat trough level ordered for before 4th dose of new regimen. Pharmacy Service will continue to monitor and adjust dosing as required. Follow-Up Labs: Trough Vancomycin - 2..19 @1130 befoe 1200 dose
[2018-10-18 12:00] VITALS: BP 134/47; PULSE 108; RESP 18; TEMP 37.1; O2SAT 97
[2018-10-18] MEDS: Ondansetron 4 MG/2 ML Vial IV (12:03)
--- NOTE | 2018-10-18 13:45 | NURSING ---
1200 dose of vanc not yet arrived to floor yet
--- NOTE | 2018-10-18 14:08 | PCM.PN.ID ---
Patient Problems: Active and Suspected Problems (Last Updated 10/06/18 @ 20:57 by Janell Zuñiga MD) Separation of wound with drainage, (Acute) pelvic abscess (Acute) Subjective: Worse abd pain today. Fever overnight was higher. Minimal serous drainage not starting to drain. Some nausea. - Physical Exam General: Alert, Cooperative, No apparent distress Lungs: Clear to auscultation, Normal air movement Cardiovascular: Regular rate, Regular Rhythm Abdomen: Soft, Non-Distended, - - R sided tenderness. RLQ drain in place. Suprapubic incision no redness or purulence. Vital Signs Temp Pulse Resp BP Pulse Ox 98.7 F 108 H 18 134/47 H 97 10/18/18 12:00 10/18/18 12:00 10/18/18 12:00 10/18/18 12:00 10/18/18 12:00 Oxygen Flow Rate (L/min) [4] 2 Oxygen Flow Rate (L/min) [3] 2 Oxygen Flow Rate (L/min) [2] 2 Oxygen Flow Rate (L/min) [1 ( 2 Initial Baseline)] Oxygen Delivery Method [4] Nasal Cannula Oxygen Delivery Method [3] Nasal Cannula Oxygen Delivery Method [2] Nasal Cannula Oxygen Delivery Method [1 ( Nasal Cannula Initial Baseline)] Oxygen Delivery Method Room Air Weight: 91.6 kg Body Mass Index (BMI) 34.7 Intake and Output for Last 24 Hours 10/16/18 10/17/18 10/18/18 23:59 23:59 23:59 Intake Total 3486 / 3486 1866 / 1866 1313 / 1313 Output Total 0 / 0 0 / 0 200 / 200 Balance 3486 / 3486 1866 / 1866 1113 / 1113 Laboratory Tests Past 24 Hrs 10/17/18 10/18/18 10/18/18 21:50 05:44 05:44 WBC 24.6 H RBC 4.15 L Hgb 12.9 Hct 39.1 MCV 94.2 MCH 31.1 MCHC 33.0 RDW 13.1 RDW Differential 45.5 H Plt Count 454 H MPV 8.9 Immature Gran % (Auto) 1.200 H Neut % (Auto) 83.7 H Lymph % (Auto) 10.2 L [place] % (Auto) 4.0 Eos % (Auto) 0.7 Baso % (Auto) 0.2 Absolute Neuts (auto) 20.6 H Absolute Lymphs (auto) 2.50 Total Counted Not Reportable Differential Comment COMMENT PT INR APTT Sodium 138 Potassium 4.0 Chloride 108 H Carbon Dioxide 18.0 L Anion Gap 12 BUN 5 L Creatinine 0.65 Estim Creat Clear Calc 119.22 Est GFR (MDRD) Af Amer 147 Est GFR (MDRD) Non-Af 121 BUN/Creatinine Ratio 7.6 L Glucose 72 L Lactic Acid Calcium 8.7 Urine Color Yellow Urine Clarity Cloudy Urine pH 7.0 Ur Specific [place] 1.005 Urine Protein 30 H Urine Glucose (UA) Normal Urine Ketones Negative Urine Occult Blood 250 H Urine Nitrite Negative Urine Bilirubin Negative Urine Urobilinogen Normal Ur Leukocyte Esterase 500 H Urine RBC 10-25 SEEN Urine WBC 50-100 SEEN Ur Squamous Epith Cells 0-5 SEEN Urine Bacteria 0 SEEN Urine Mucus 0 SEEN Vancomycin Trough 10/18/18 10/18/18 10/18/18 09:15 09:15 09:15 WBC RBC Hgb Hct MCV MCH MCHC RDW RDW Differential Plt Count MPV Immature Gran % (Auto) Neut % (Auto) Lymph % (Auto) [place] % (Auto) Eos % (Auto) Baso % (Auto) Absolute Neuts (auto) Absolute Lymphs (auto) Total Counted Differential Comment PT 15.0 H INR 1.2 APTT 34.1 Sodium Potassium Chloride Carbon Dioxide Anion Gap BUN Creatinine Estim Creat Clear Calc Est GFR (MDRD) Af Amer Est GFR (MDRD) Non-Af BUN/Creatinine Ratio Glucose Lactic Acid 0.8 Calcium Urine Color Urine Clarity Urine pH Ur Specific [place] Urine Protein Urine Glucose (UA) Urine Ketones Urine Occult Blood Urine Nitrite Urine Bilirubin Urine Urobilinogen Ur Leukocyte Esterase Urine RBC Urine WBC Ur Squamous Epith Cells Urine Bacteria Urine Mucus Vancomycin Trough 13.7 Medical Necessity - Tobacco Use Smoking Status: Current every day smoker Route of nutrition/ use of supplements: [] Nutritional Intake: [] IV Site: [] Bob Catheter: [] - Assessment/Plan Antibiotics: [] Assessment/Plan: [] Active and Suspected Problems (Last Updated 10/06/18 @ 20:57 by Janell Zuñiga MD) pelvic abscess (Acute) Drain placed 10/16 but no fluid obtained. On zosyn, vanc. Worsened fever, wbc, and abd pain. May need surgical exploration. I think it is reasonable to check repeat CT first. Will follow, d/w primary team.
[2018-10-18 15:04] VITALS: BP 127/63; PULSE 97; RESP 18; TEMP 37.1; O2SAT 95
--- NOTE | 2018-10-18 16:45 | CASEMGMT ---
Social Work MS3 Summary: Received call from patient's RN Lisy george given this newspaper writer update that patient's boyfriend and interactions in the room. Called [employer] to check explore whether the agency would ever help with rent without being 30 days behind. Message left. Presented to patient's room. Patient's boyfriend Kasi in the room, up and awake during this newspaper writer's visit. Kasi voiced being worried about patient, that is really tired from working last night but came to the hospital due to being worried about patient. Kasi expressed negative thoughts about [facility] in relation to being the hospital's fault patient is sick, voicing dissatisfaction that patient had to have surgery. This newspaper writer inquired if caesarian section delivery needed to be done quickly and was decided upon due to health of mom and baby at the time. Patient voiced that feeling better today, but that if has to have surgery may not want to have surgery at [facility]. Attempted to explore with patient what the concerns would be to have surgery at [facility] versus another hospital. Encouraged MOB to consider this, as well as consider why may help Patient be more comfortable, then discuss directly with doctor. Patient reports to like her OBGYN and that does trust Dr. Zuñiga. Supportive listening offered, answered questions as able, and encouraged patient to discussed directly with physician if patient has concerns. Reviewed with patient call to [employer] and provided pamphlet on said agency, [facility] resources list, and [facility] with more resources and meal/food pantries in the area. Patient accepting of all information provided today. Addressed with patient whether patient has yet gotten the baby a pediatric follow up. Patient reports appointment is at [facility], Dr. Dimas, for 10-27-18 at 1000. This newspaper writer reinforced to patient and to Kasi the importance of getting baby to follow up after . Both expressed understanding, agreement and intent to have baby get to appointment. Kasi reports the baby is at home being cared for baby Kasi's mom at this time. Kasi reports checked on FMLA and Kasi is not eligible due to not working enough hours yet. Kasi did comment that would be nice to be able to get own apartment sometime. Patient reports to be on [facility] waiting list already. Both expressed would like an apartment list if this newspaper writer has one. Assessment: Kasi participating in conversation, respectful with this newspaper writer, appearing sleepy and at times speech was slower. Patient alert and oriented, appearing more relaxed today as compared to yesterday. Patient up and moving in room. Smiled at appropriate times and held good eye contact with this newspaper writer. Kasi did go to the bathroom at one point and this newspaper writer explored whether things are okay with Kasi and patient, or of patient has any concerns. Patient denies issues and reports all is good. Plan: See patient again on 10.19.18. Provided additional resources. Make [facility] referral again (was made at time of delivery but patient reports has not had any contact yet from said agency). -YAMILETH Sandoval, ENDOCRINOLOGY TEACHER
[2018-10-18 20:07] VITALS: BP 107/71; PULSE 81; RESP 18; TEMP 36.9; O2SAT 97
[2018-10-19] VITALS (7 sets, daily range): BP systolic 120–133; BP diastolic 59–71; PULSE 86–122; RESP 16–18; TEMP 37.3–38.6; O2SAT 97–100
[2018-10-19] MEDS: Acetaminophen 325 MG Tablet 650 MG PO ×4 (03:17→23:10)
[2018-10-19] MEDS: oxyCODONE 5 MG Tablet 10 MG PO ×3 (05:54→18:44)
[2018-10-19 06:19] LABS: Absolute Lymphocyte Count 2.86 X10^3/ul (0.83-4.51); Absolute Neutrophil Count 15.8 X10^3/uL (2.0-7.7); Basophil# 0.07 X10^3/uL; Basophil% 0.3 % (0-1); Eosinophil# 0.23 X10^3/uL; Eosinophils% 1.1 % (0-5); Hematocrit 35.2 % (37-47); Hemoglobin 11.3 g/dl (12.0-15.0); Lymphocyte # 2.86 X10^3/ul (4.0); Lymphocyte % 13.9 % (19-41); Mean Corp Hgb Conc 32.1 g/gl (32-36); Mean Corpuscular Hgb 30.8 pg (27.0-32.0); Mean Corpuscular Volume 95.9 fL (81-99); Mean Platelet Vol. 8.7 fl (6.2-12.0); Monocyte# 1.38 X10^3/uL; Monocyte% 6.7 % (0-10); Neutrophil # 15.77 X10^3/uL (2.7-7.7); Neutrophil % 76.5 % (47-70); Platelet Count 444 K/mm3 (150-450); Red Blood Count 3.67 M/mm3 (4.2-5.4); White Blood Count 20.6 K/mm3 (4.4-11.0)
[2018-10-19 06:20] LABS: POSITIVE COUNT NO; POSITIVE DIFFERENTIAL NO; POSITIVE MORPHOLOGY NO
[2018-10-19 06:28] LABS: Anion Gap 11 (5-15); BUN 6 mg/dL (7-18); BUN/Creat Ratio 9.6 RATIO (10-20); Calcium,Total 8.6 mg/dL (8.5-10.1); Chloride 110 mmol/L (98-107); Creatinine, Serum 0.63 mg/dL (0.55-1.02); EST Glomerular Filtration Rate 128 mL/min (>60); Est Glom Filt Rate - Afr Amer 154 mL/min (>60); Glucose 74 mg/dL (74-106); Sodium Level 143 mmol/L (136-145)
--- NOTE | 2018-10-19 08:24 | PN.OBGYN_ITS ---
Patient Problems: Active and Suspected Problems (Last Updated 10/06/18 @ 20:57 by Janell Ramirez MD) Separation of wound with drainage, (Acute) pelvic abscess (Acute) Subjective: Manisha feels well today. OOB, passing flatus, had 2-3 bowel movements. Denies diarrhea. Her abdominal pain and appetite improved. Objective: Tm 100.3 VSS - Physical Exam General: Alert, Oriented x3, Cooperative, No apparent distress HEENT: Atraumatic, Normocephalic Lungs: Clear to auscultation, Normal air movement Cardiovascular: Regular rate, Regular Rhythm, Normal S1, Normal S2 Abdomen: Soft, Non Tender, Non-Distended, - - No back or CVA tenderness, Fundus firm and nontender, incision with superficial separation unchanged from prior - no erythema or exudate - serous discharge only Extremities: No Calf Tenderness, - - trace LE edema Neurological: Neuro grossly intact Psych/Mental Status: Normal Affect, Appropriate, Alert and oriented to time, place, person, mood and affect Vital Signs Temp Pulse Resp BP Pulse Ox 99.1 F 113 H 16 133/59 H 100 10/19/18 04:07 10/19/18 03:14 10/19/18 03:14 10/19/18 03:14 10/19/18 03:14 Oxygen Flow Rate (L/min) [4] 2 Oxygen Flow Rate (L/min) [3] 2 Oxygen Flow Rate (L/min) [2] 2 Oxygen Flow Rate (L/min) [1 ( 2 Initial Baseline)] Oxygen Delivery Method [4] Nasal Cannula Oxygen Delivery Method [3] Nasal Cannula Oxygen Delivery Method [2] Nasal Cannula Oxygen Delivery Method [1 ( Nasal Cannula Initial Baseline)] Oxygen Delivery Method Room Air Weight: 91.6 kg Body Mass Index (BMI) 34.7 Intake and Output for Last 24 Hours 10/17/18 10/18/18 10/19/18 23:59 23:59 23:59 Intake Total 1865 2858 / 2858 982 / 982 Output Total 0 / 0 850 / 850 500 / 500 Balance 1865 482 / 482 Microbiology Past 72 Hours 10/16/18 04:54 Blood Culture - Preliminary Blood Culture (Wb) - Right Hand No growth in 48 hours. 10/16/18 04:50 Blood Culture - Preliminary Blood Culture (Wb) - Left Hand No growth in 48 hours. Laboratory Tests Past 24 Hrs 10/18/18 10/18/18 10/18/18 05:44 09:15 09:15 WBC RBC Hgb Hct MCV MCH MCHC RDW RDW Differential Plt Count MPV Immature Gran % (Auto) Neut % (Auto) Lymph % (Auto) [place] % (Auto) Eos % (Auto) Baso % (Auto) Absolute Neuts (auto) Absolute Lymphs (auto) Total Counted Not Reportable Differential Comment COMMENT PT 15.0 H INR 1.2 APTT 34.1 Sodium Potassium Chloride Carbon Dioxide Anion Gap BUN Creatinine Estim Creat Clear Calc Est GFR (MDRD) Af Amer Est GFR (MDRD) Non-Af BUN/Creatinine Ratio Glucose Lactic Acid Calcium Vancomycin Trough 13.7 10/18/18 10/19/18 10/19/18 09:15 05:36 05:36 WBC 20.6 H RBC 3.67 L Hgb 11.3 L Hct 35.2 L MCV 95.9 MCH 30.8 MCHC 32.1 RDW 13.0 RDW Differential 44.0 H Plt Count 444 MPV 8.7 Immature Gran % (Auto) 1.500 H Neut % (Auto) 76.5 H Lymph % (Auto) 13.9 L [place] % (Auto) 6.7 Eos % (Auto) 1.1 Baso % (Auto) 0.3 Absolute Neuts (auto) 15.8 H Absolute Lymphs (auto) 2.86 Total Counted Not Reportable Differential Comment PT INR APTT Sodium 143 Potassium 4.0 Chloride 110 H Carbon Dioxide 22.0 Anion Gap 11 BUN 6 L Creatinine 0.63 Estim Creat Clear Calc 123.00 Est GFR (MDRD) Af Amer 154 Est GFR (MDRD) Non-Af 128 BUN/Creatinine Ratio 9.6 L Glucose 74 Lactic Acid 0.8 Calcium 8.6 Vancomycin Trough Medical Necessity - Tobacco Use Smoking Status: Current every day smoker Assessment/Plan All Active Problems (Last Updated 10/06/18 @ 20:57 by Janell Zuñiga MD) Separation of wound with drainage, (Acute) pelvic abscess (Acute) Status post section (Acute) Maternal fever during labor (Acute) 22yo POD#12 s/p PLTCS readmitted with fever, leukocytosis and right pelvic phlegmon - clinically improved from prior -CT findings reviewed with patient - fluid collection smaller, no evidence of evolving infection or other acute intra-abdominal process -Regular diet -Heparin for DVT ppx -Will transition to oral antibiotics per ID today or tomorrow
[2018-10-19] MEDS: Lisinopril 5 MG Tablet PO (10:22)
--- NOTE | 2018-10-19 10:52 | PN.ID_ITS ---
Patient Problems: Active and Suspected Problems (Last Updated 10/06/18 @ 20:57 by Janell Ramirez MD) Separation of wound with drainage, (Acute) pelvic abscess (Acute) Subjective: Feeling much better, no fever last night, abd pain improved. - Physical Exam General: Alert, Cooperative, No apparent distress Lungs: Clear to auscultation, Normal air movement Cardiovascular: Regular rate, Regular Rhythm Abdomen: Soft, Non-Distended, Tender - mild RLQ tenderness Skin: No rashes Vital Signs Temp Pulse Resp BP Pulse Ox 101.5 F H 122 H 18 120/61 97 10/19/18 10:17 10/19/18 10:17 10/19/18 10:17 10/19/18 10:17 10/19/18 10:17 Oxygen Flow Rate (L/min) [4] 2 Oxygen Flow Rate (L/min) [3] 2 Oxygen Flow Rate (L/min) [2] 2 Oxygen Flow Rate (L/min) [1 ( 2 Initial Baseline)] Oxygen Delivery Method [4] Nasal Cannula Oxygen Delivery Method [3] Nasal Cannula Oxygen Delivery Method [2] Nasal Cannula Oxygen Delivery Method [1 ( Nasal Cannula Initial Baseline)] Oxygen Delivery Method Room Air Weight: 91.6 kg Body Mass Index (BMI) 34.7 Intake and Output for Last 24 Hours 10/17/18 10/18/18 10/19/18 23:59 23:59 23:59 Intake Total 1865 / 1865 2858 / 2858 982 / 982 Output Total 0 / 0 850 / 850 500 / 500 Balance 1865 / 6 2007 482 / 482 Microbiology Past 72 Hours 10/16/18 04:54 Blood Culture - Preliminary Blood Culture (Wb) - Right Hand No growth in 48 hours. 10/16/18 04:50 Blood Culture - Preliminary Blood Culture (Wb) - Left Hand No growth in 48 hours. Laboratory Tests Past 24 Hrs 10/19/18 10/19/18 05:36 05:36 WBC 20.6 H RBC 3.67 L Hgb 11.3 L Hct 35.2 L MCV 95.9 MCH 30.8 MCHC 32.1 RDW 13.0 RDW Differential 44.0 H Plt Count 444 MPV 8.7 Immature Gran % (Auto) 1.500 H Neut % (Auto) 76.5 H Lymph % (Auto) 13.9 L [place] % (Auto) 6.7 Eos % (Auto) 1.1 Baso % (Auto) 0.3 Absolute Neuts (auto) 15.8 H Absolute Lymphs (auto) 2.86 Total Counted Not Reportable Sodium 143 Potassium 4.0 Chloride 110 H Carbon Dioxide 22.0 Anion Gap 11 BUN 6 L Creatinine 0.63 Estim Creat Clear Calc 123.00 Est GFR (MDRD) Af Amer 154 Est GFR (MDRD) Non-Af 128 BUN/Creatinine Ratio 9.6 L Glucose 74 Calcium 8.6 Medical Necessity - Tobacco Use Smoking Status: Current every day smoker Route of nutrition/ use of supplements: [] Nutritional Intake: [] IV Site: [] Bob Catheter: [] - Assessment/Plan Antibiotics: [] Assessment/Plan: [] Active and Suspected Problems (Last Updated 10/06/18 @ 20:57 by Janell Ramirez MD) pelvic abscess (Acute) Sepsis improved - fever resolved, wbc now improving. Drain placed 10/16 but no fluid obtained. On zosyn, vanc. CT shows improvement in abscess. She is not . If she continues to show improvement, tentative plan will be for home with 10 days of linezolid 600mg bid, cipro 500mg bid, and flagyl 500mg tid. Would like to continue abx until abscess is completely resolved. Will follow
[2018-10-19 12:46] LABS: Vancomycin, Trough Level 14.2 ug/mL (5.0-15.0)
--- NOTE | 2018-10-19 13:01 | CASEMGMT ---
Social Work MS3 Summary: Met with patient in room today. Patient reports to be feeling better as compared to yesterday and hopeful from conversation with the doctor that can go home tomorrow on oral antibiotics. This insurance underwriter had received call back from Shanita at [employer] and patient's situation is not one that could be assisted with for rent (not 30 day behind and lives with family). Updated patient to conversation with [employer], as well as suggestion that patient try help from local churches if patient and family desire. Patient voiced that as getting out of the hospital tomorrow, boyfriend Kasi can keep working and patient feels up to caring for the baby at home. Patient reports Kasi's mom will continue to help out as well. Addressed pediatric follow up for baby. Patient reports intent to take baby to appointment, and denies any issues with transportation. Patient accepted list of [employer] approve apartments to van driver helper in patient's search for a place of own (in the future). Reviewed the [place] depression screen with patient, reviewed score during (3) and score from this admission (4). Reviewed some symptoms and different types of mood and anxiety issues that can develop. pole frame construction worker reviewed with patient that of symptoms arise it is okay to talk to someone, no fault of the mother, and importance of addressing symptoms rather than letting worsen. Discussed healthcare provides as options to talk with. Patient indicates that likes her OBGYN and this person would be a person patient can talk to. Patient declines referral to counseling at this time. [place] [facility] [place] via the [facility]'s secure web based referral system. Assessment: Patient engaged in conversation with this insurance underwriter as evidenced by asking questions and showing interest in topics social media director discussed. Patient reports to feel good with plan to return home, will continue with medications the doctors prescribe, and reports to feel to be able to manage at home with the support that is in place. Plan: Patient to home when ready for discharge. Local resources list provided that assist with financial help, food, counseling, and parents support. [facility] [place] up with patient as referral made today. -YAMILETH Sandoval, CHEMICAL WEIGHER
--- NOTE | 2018-10-19 13:30 | PN.OBGYN_ITS ---
Patient Problems: Active and Suspected Problems (Last Updated 10/06/18 @ 20:57 by Janell Ramirez MD) Separation of wound with drainage, (Acute) pelvic abscess (Acute) Subjective: Patient reports continues to feel well. Did not feel like she had a fever. No new complaints. RLQ pain is mild and not worsened from prior. Objective: Tm 101.5 VSS - Physical Exam General: Alert, Oriented x3, Cooperative, No apparent distress HEENT: Atraumatic, Normocephalic Abdomen: Bowel Sounds Present, Soft, Non-Distended, - - +RLQ tenderness s rebound or guarding, incisional dressing c/d/i, fundus firm and nontender Extremities: No Calf Tenderness, - - trace LE edema Neurological: Neuro grossly intact Psych/Mental Status: Normal Affect, Appropriate, Alert and oriented to time, place, person, mood and affect Vital Signs Temp Pulse Resp BP Pulse Ox 99.3 F H 122 H 18 120/61 97 10/19/18 13:11 10/19/18 10:17 10/19/18 10:17 10/19/18 10:17 10/19/18 10:17 Oxygen Flow Rate (L/min) [4] 2 Oxygen Flow Rate (L/min) [3] 2 Oxygen Flow Rate (L/min) [2] 2 Oxygen Flow Rate (L/min) [1 ( 2 Initial Baseline)] Oxygen Delivery Method [4] Nasal Cannula Oxygen Delivery Method [3] Nasal Cannula Oxygen Delivery Method [2] Nasal Cannula Oxygen Delivery Method [1 ( Nasal Cannula Initial Baseline)] Oxygen Delivery Method Room Air Weight: 91.6 kg Body Mass Index (BMI) 34.7 Intake and Output for Last 24 Hours 10/17/18 10/18/18 10/19/18 23:59 23:59 23:59 Intake Total 1865 2858 / 2858 982 / 982 Output Total 0 / 0 850 / 850 500 / 500 Balance 1865 482 / 482 Microbiology Past 72 Hours 10/16/18 04:54 Blood Culture - Preliminary Blood Culture (Wb) - Right Hand No growth in 48 hours. 10/16/18 04:50 Blood Culture - Preliminary Blood Culture (Wb) - Left Hand No growth in 48 hours. Laboratory Tests Past 24 Hrs 10/19/18 10/19/1819 05:36 05:36 11:20 WBC 20.6 H RBC 3.67 L Hgb 11.3 L Hct 35.2 L MCV 95.9 MCH 30.8 MCHC 32.1 RDW 13.0 RDW Differential 44.0 H Plt Count 444 MPV 8.7 Immature Gran % (Auto) 1.500 H Neut % (Auto) 76.5 H Lymph % (Auto) 13.9 L [place] % (Auto) 6.7 Eos % (Auto) 1.1 Baso % (Auto) 0.3 Absolute Neuts (auto) 15.8 H Absolute Lymphs (auto) 2.86 Total Counted Not Reportable Sodium 143 Potassium 4.0 Chloride 110 H Carbon Dioxide 22.0 Anion Gap 11 BUN 6 L Creatinine 0.63 Estim Creat Clear Calc 123.00 Est GFR (MDRD) Af Amer 154 Est GFR (MDRD) Non-Af 128 BUN/Creatinine Ratio 9.6 L Glucose 74 Calcium 8.6 Vancomycin Trough 14.2 Medical Necessity - Tobacco Use Smoking Status: Current every day smoker Assessment/Plan All Active Problems (Last Updated 10/06/18 @ 20:57 by Janell Zuñiga MD) Separation of wound with drainage, (Acute) pelvic abscess (Acute) Status post section (Acute) Maternal fever during labor (Acute) 22yo POD#12 s/p PLTCS readmitted with fever, leukocytosis and right pelvic phlegmon - clinically improved from prior -Recurrent fever despite antibiotics and wbc decreasing -Dfdx septic pelvic thromblebitis vs. ?partially treated appendicitis vs. other infection. CT yesterday again demonstrated no acute process however and despite minimal JOHAN drainage, right pelvic collection is smaller. -Offered patient exploratory laparotomy vs. Lovenox therapy for possible SPT (pt previously declined ppx as had experiences ?spontaneous bleeding from incision vs. bleeding precipitated by waistband on pants). I recommend Lovenox therapy. r/b each reviewed. Also discussed transfer of care if no response. She indicated preference to avoid surgery at this time, but requested transfer of care and desires second opinion regarding surgery. Agreeable to start Lovenox therapy at this time. -Lovenox bid -Will initiate transfer
[2018-10-19] MEDS: Enoxaparin 40 MG/0.4 ML Syringe SC (14:36)
--- NOTE | 2018-10-19 14:56 | NURSING ---
Call to Dr. Zuñiga at this time as patient is declining transfer to [facility] at this time. Per Dr. Zuñiga this RN can call and cancel transfer to [facility].
--- NOTE | 2018-10-19 17:06 | PCM.RX.CS ---
Consult Pharmacy has been consulted to manage selected antiobiotic: Vancomycin Type of Consult: Follow-up Suspected Infection: Skin/Soft tissue Prior Doses of Antibiotics Received/Current Regimen: Currently on 1250mg iv q8h. Labs: Sodium 143 mmol/L (136-145) 10/19/18 05:36 Potassium 4.0 mmol/L (3.5-5.1) 10/19/18 05:36 Chloride 110 mmol/L (98-107) H 10/19/18 05:36 Carbon Dioxide 22.0 mmol/L (21.0-32.0) 10/19/18 05:36 Anion Gap 11 (5-15) 10/19/18 05:36 BUN 6 mg/dL (7-18) L 10/19/18 05:36 Creatinine 0.63 mg/dL (0.55-1.02) 10/19/18 05:36 Est GFR (MDRD) Af Amer 154 mL/min (>60) 10/19/18 05:36 Est GFR (MDRD) Non-Af 128 mL/min (>60) 10/19/18 05:36 BUN/Creatinine Ratio 9.6 RATIO (10-20) L 10/19/18 05:36 Glucose 74 mg/dL (74-106) 10/19/18 05:36 Vancomycin Trough 14.2 ug/mL (5.0-15.0) 10/19/18 11:20 Microbiology: Microbiology 10/16/18 04:54 Blood Culture (Wb) - Right Hand Blood Culture - Preliminary No growth in 48 hours. 10/16/18 04:50 Blood Culture (Wb) - Left Hand Blood Culture - Preliminary No growth in 48 hours. Weight used for dosin.6 kg Estimated Creatinine Clearance: 119 ml/hr Goal Trough: 15-20 mcg/mL Pharmacy Plan for Drug Dosing: Trough level of 10.19.18 was 14.2. Will continue with same regimen, 1250mg iv q8h, and get another trough level on 10.20.18. Pharmacy Service will continue to monitor and adjust dosing as required. Follow-Up Labs: Trough Vancomycin - 10.20.18 @1130 before 1200 dose
[2018-10-19] MEDS: Lactated Ringers 1,000 ML 15 ML IV (20:23)
[2018-10-20 02:07] VITALS: BP 121/58; PULSE 92; RESP 16; TEMP 37.3; O2SAT 95
[2018-10-20] MEDS: oxyCODONE 5 MG Tablet 10 MG PO ×4 (02:11→20:43)
[2018-10-20] MEDS: Enoxaparin 40 MG/0.4 ML Syringe SC (06:14)
[2018-10-20 07:07] LABS: Anion Gap 6 (5-15); BUN 6 mg/dL (7-18); BUN/Creat Ratio 8.2 RATIO (10-20); Calcium,Total 8.7 mg/dL (8.5-10.1); Chloride 106 mmol/L (98-107); Creatinine, Serum 0.74 mg/dL (0.55-1.02); EST Glomerular Filtration Rate 106 mL/min (>60); Est Glom Filt Rate - Afr Amer 128 mL/min (>60); Estimated Creatinine Clearance 104.72 ml/min; Glucose 68 mg/dL (74-106); Potassium 4.3 mmol/L (3.5-5.1); Sodium Level 140 mmol/L (136-145)
[2018-10-20 07:55] LABS: Absolute Lymphocyte Count 2.99 X10^3/ul (0.83-4.51); Absolute Neutrophil Count 15.9 X10^3/uL (2.0-7.7); Basophil# 0.04 X10^3/uL; Basophil% 0.2 % (0-1); Eosinophil# 0.28 X10^3/uL; Eosinophils% 1.3 % (0-5); Hematocrit 33.9 % (37-47); Hemoglobin 10.7 g/dl (12.0-15.0); Lymphocyte # 2.99 X10^3/ul (4.0); Lymphocyte % 14.2 % (19-41); Mean Corp Hgb Conc 31.6 g/gl (32-36); Mean Corpuscular Hgb 30.7 pg (27.0-32.0); Mean Corpuscular Volume 97.1 fL (81-99); Mean Platelet Vol. 8.4 fl (6.2-12.0); Monocyte# 1.45 X10^3/uL; Monocyte% 6.9 % (0-10); Neutrophil # 15.89 X10^3/uL (2.7-7.7); Neutrophil % 75.5 % (47-70); Platelet Count 432 K/mm3 (150-450); RBC Distribution Width CV 13.2 % (11.6-14.6); RBC Distribution Width SD 46.5 fl (35.1-43.9); Red Blood Count 3.49 M/mm3 (4.2-5.4); White Blood Count 21.1 K/mm3 (4.4-11.0)
[2018-10-20 07:56] LABS: POSITIVE DIFFERENTIAL NO
[2018-10-20 07:57] LABS: Differential Indicated SCAN CRITERIA MET; POSITIVE COUNT NO; POSITIVE MORPHOLOGY YES
[2018-10-20] MEDS: Lisinopril 5 MG Tablet PO (08:16)
[2018-10-20] MEDS: Acetaminophen 325 MG Tablet 650 MG PO ×2 (08:16→18:33)
[2018-10-20 08:20] LABS: Hypochromasia RARE; Platelet Estimate ADEQUATE (ADEQ); Reactive Lymphocyte RARE; Red Cell Morphology N CYTIC NORMAL (NORM C&C)
[2018-10-20 08:25] VITALS: BP 133/79; PULSE 95; RESP 16; TEMP 37.9; O2SAT 98
--- NOTE | 2018-10-20 08:37 | PN.OBGYN_ITS ---
Patient Problems: Active and Suspected Problems (Last Updated 10/06/18 @ 20:57 by Janell Ramirez MD) Separation of wound with drainage, (Acute) pelvic abscess (Acute) Subjective: Relate R lower abdominal pain persists. She had back pain with worsening overnight, but feels better now that she walked and was out of bed. She attributes this to the hospital bed. Denies diarrhea. Bowels continue moving. No chest pain, shortness of breath, heavy lochia, cough, sore throat, upper abdominal pain, fever, chills, nausea or vomiting. Her appetite improves. Objective: Tm 101.5 yesterday approx 10:30 am VSS - Physical Exam General: Alert, Oriented x3, Cooperative, No apparent distress HEENT: Atraumatic, Normocephalic Lungs: Clear to auscultation, Normal air movement Cardiovascular: Regular rate, Regular Rhythm, Normal S1, Normal S2 Abdomen: Bowel Sounds Present, Soft, Non-Distended, - - RLQ tenderness surrounding JOHAN site, no rebound or guarding. Incisional dressing approx 50% saturated Extremities: No Calf Tenderness, - - trace LE edema Neurological: Neuro grossly intact Psych/Mental Status: Normal Affect, Appropriate, Alert and oriented to time, place, person, mood and affect Vital Signs Temp Pulse Resp BP Pulse Ox 99.2 F H 92 16 121/58 H 95 10/20/18 02:07 10/20/18 02:07 10/20/18 02:07 10/20/18 02:07 10/20/18 02:07 Oxygen Flow Rate (L/min) [4] 2 Oxygen Flow Rate (L/min) [3] 2 Oxygen Flow Rate (L/min) [2] 2 Oxygen Flow Rate (L/min) [1 ( 2 Initial Baseline)] Oxygen Delivery Method [4] Nasal Cannula Oxygen Delivery Method [3] Nasal Cannula Oxygen Delivery Method [2] Nasal Cannula Oxygen Delivery Method [1 ( Nasal Cannula Initial Baseline)] Oxygen Delivery Method Room Air Weight: 91.6 kg Body Mass Index (BMI) 34.7 Intake and Output for Last 24 Hours 10/18/18 10/19/18 10/20/18 23:59 23:59 23:59 Intake Total 2858 / 2858 2731 / 2731 1023 / 1023 Output Total 850 / 850 900 / 900 0 / 0 Balance 2007 1831 / 1831 1023 / 1023 Microbiology Past 72 Hours 10/17/18 21:50 Urine Culture - Final Interface Orders Culture exhibits no growth. 10/16/18 04:54 Blood Culture - Preliminary Blood Culture (Wb) - Right Hand No growth in 48 hours. 10/16/18 04:50 Blood Culture - Preliminary Blood Culture (Wb) - Left Hand No growth in 48 hours. Laboratory Tests Past 24 Hrs 10/19/18 10/20/18 10/20/18 11:20 06:40 06:40 WBC 21.1 H RBC 3.49 L Hgb 10.7 L Hct 33.9 L MCV 97.1 MCH 30.7 MCHC 31.6 L RDW 13.2 RDW Differential 46.5 H Plt Count 432 MPV 8.4 Immature Gran % (Auto) 1.900 H Neut % (Auto) 75.5 H Lymph % (Auto) 14.2 L [place] % (Auto) 6.9 Eos % (Auto) 1.3 Baso % (Auto) 0.2 Absolute Neuts (auto) 15.9 H Absolute Lymphs (auto) 2.99 Total Counted Not Reportable Reactive Lymphocytes RARE Platelet Estimate ADEQUATE RBC Morphology N CYTIC Hypochromasia RARE Sodium 140 Potassium 4.3 Chloride 106 Carbon Dioxide 28.0 Anion Gap 6 BUN 6 L Creatinine 0.74 Estim Creat Clear Calc 104.72 Est GFR (MDRD) Af Amer 128 Est GFR (MDRD) Non-Af 106 BUN/Creatinine Ratio 8.2 L Glucose 68 L Calcium 8.7 Vancomycin Trough 14.2 Medical Necessity - Tobacco Use Smoking Status: Current every day smoker Assessment/Plan All Active Problems (Last Updated 10/06/18 @ 20:57 by Janell Zuñiga MD) Separation of wound with drainage, (Acute) pelvic abscess (Acute) Status post section (Acute) Maternal fever during labor (Acute) 22yo POD#13 s/p PLTCS readmitted with fever, leukocytosis and right pelvic phlegmon - clinically improved from prior -Recurrent fever -Repeat CT 10/18/18 demonstrated no acute process however and despite minimal JOHAN drainage, right pelvic collection is smaller. -Patient declined yesterday's transfer - transfer canceled -Pressure dressing for incision -Continue Lovenox for possible septic pelvic thrombophlebitis -Continue Zosyn/Vanc today
[2018-10-20 11:50] LABS: Vancomycin, Trough Level 15.3 ug/mL (5.0-15.0)
[2018-10-20 14:17] VITALS: BP 117/78; PULSE 100; RESP 18; TEMP 37.2; O2SAT 99
--- NOTE | 2018-10-20 14:48 | PCM.RX.CS ---
Consult Pharmacy has been consulted to manage selected antiobiotic: Vancomycin Type of Consult: Follow-up Suspected Infection: Skin/Soft tissue Prior Doses of Antibiotics Received/Current Regimen: Currently on 1250mg IV q8h with the previous 2 doses given on 10/19/18 at 20:23 and today 10/20/18 at 04:30. Labs: Sodium 140 mmol/L (136-145) 10/20/18 06:40 Potassium 4.3 mmol/L (3.5-5.1) 10/20/18 06:40 Chloride 106 mmol/L (98-107) 10/20/18 06:40 Carbon Dioxide 28.0 mmol/L (21.0-32.0) 10/20/18 06:40 Anion Gap 6 (5-15) 10/20/18 06:40 BUN 6 mg/dL (7-18) L 10/20/18 06:40 Creatinine 0.74 mg/dL (0.55-1.02) 10/20/18 06:40 Est GFR (MDRD) Af Amer 128 mL/min (>60) 10/20/18 06:40 Est GFR (MDRD) Non-Af 106 mL/min (>60) 10/20/18 06:40 BUN/Creatinine Ratio 8.2 RATIO (10-20) L 10/20/18 06:40 Glucose 68 mg/dL (74-106) L 10/20/18 06:40 Vancomycin Trough 15.3 ug/mL (5.0-15.0) H 10/20/18 11:00 Microbiology: Microbiology 10/18/18 09:15 Blood Culture (Wb) - Anticubital Right Blood Culture - Preliminary No growth in 48 hours. 10/18/18 09:30 Blood Culture (Wb) - Anticubital Right Blood Culture - Preliminary No growth in 48 hours. 10/17/18 21:50 Interface Orders Urine Culture - Final Culture exhibits no growth. 10/16/18 04:54 Blood Culture (Wb) - Right Hand Blood Culture - Preliminary No growth in 48 hours. 10/16/18 04:50 Blood Culture (Wb) - Left Hand Blood Culture - Preliminary No growth in 48 hours. Estimated Creatinine Clearance: 105 ml/min Goal Trough: 15-20 mcg/mL Pharmacy Plan for Drug Dosing: Trough obtained today was 15.3. Since this was within goal range, plan to keep dosing the same. Will obtain another trough in 4 days. Pharmacy Service will continue to monitor and adjust dosing as required. Follow-Up Labs: Trough Vancomycin Labs to be done on [date and time ordered]: 10/24/18 11:30
--- NOTE | 2018-10-20 15:14 | PN.ID_ITS ---
Patient Problems: Active and Suspected Problems (Last Updated 10/06/18 @ 20:57 by Janell Ramirez MD) Separation of wound with drainage, (Acute) pelvic abscess (Acute) Subjective: Feeling better. No fever overnight. Abd pain better. - Physical Exam General: Alert, Cooperative, No apparent distress Lungs: Clear to auscultation, Normal air movement Cardiovascular: Regular rate, Regular Rhythm Abdomen: Soft, Non-Distended, - - mild tenderness Vital Signs Temp Pulse Resp BP Pulse Ox 98.9 F 100 18 117/78 99 10/20/18 14:17 10/20/18 14:17 10/20/18 14:17 10/20/18 14:17 10/20/18 14:17 Oxygen Flow Rate (L/min) [4] 2 Oxygen Flow Rate (L/min) [3] 2 Oxygen Flow Rate (L/min) [2] 2 Oxygen Flow Rate (L/min) [1 ( 2 Initial Baseline)] Oxygen Delivery Method [4] Nasal Cannula Oxygen Delivery Method [3] Nasal Cannula Oxygen Delivery Method [2] Nasal Cannula Oxygen Delivery Method [1 ( Nasal Cannula Initial Baseline)] Oxygen Delivery Method Room Air Weight: 91.6 kg Body Mass Index (BMI) 34.7 Intake and Output for Last 24 Hours 10/18/18 10/19/18 10/20/18 23:59 23:59 23:59 Intake Total 2858 / 2858 2731 / 2731 1823 / 1823 Output Total 850 / 850 900 / 900 0 / 0 Balance 2007 1831 / 1831 1823 / 1823 Microbiology Past 72 Hours 10/18/18 09:15 Blood Culture - Preliminary Blood Culture (Wb) - Anticubital Right No growth in 48 hours. 10/18/18 09:30 Blood Culture - Preliminary Blood Culture (Wb) - Anticubital Right No growth in 48 hours. 10/17/18 21:50 Urine Culture - Final Interface Orders Culture exhibits no growth. 10/16/18 04:54 Blood Culture - Preliminary Blood Culture (Wb) - Right Hand No growth in 48 hours. 10/16/18 04:50 Blood Culture - Preliminary Blood Culture (Wb) - Left Hand No growth in 48 hours. Laboratory Tests Past 24 Hrs 10/20/18 10/20/18 10/20/18 06:40 06:40 11:00 WBC 21.1 H RBC 3.49 L Hgb 10.7 L Hct 33.9 L MCV 97.1 MCH 30.7 MCHC 31.6 L RDW 13.2 RDW Differential 46.5 H Plt Count 432 MPV 8.4 Immature Gran % (Auto) 1.900 H Neut % (Auto) 75.5 H Lymph % (Auto) 14.2 L [place] % (Auto) 6.9 Eos % (Auto) 1.3 Baso % (Auto) 0.2 Absolute Neuts (auto) 15.9 H Absolute Lymphs (auto) 2.99 Total Counted Not Reportable Reactive Lymphocytes RARE Platelet Estimate ADEQUATE RBC Morphology N CYTIC Hypochromasia RARE Sodium 140 Potassium 4.3 Chloride 106 Carbon Dioxide 28.0 Anion Gap 6 BUN 6 L Creatinine 0.74 Estim Creat Clear Calc 104.72 Est GFR (MDRD) Af Amer 128 Est GFR (MDRD) Non-Af 106 BUN/Creatinine Ratio 8.2 L Glucose 68 L Calcium 8.7 Vancomycin Trough 15.3 H Medical Necessity - Tobacco Use Smoking Status: Current every day smoker Route of nutrition/ use of supplements: [] Nutritional Intake: [] IV Site: [] Bob Catheter: [] - Assessment/Plan Antibiotics: [] Assessment/Plan: [] Active and Suspected Problems (Last Updated 10/06/18 @ 20:57 by Janell Ramirez MD) pelvic abscess (Acute) Sepsis improved - fever better, wbc slightly up this AM. Drain placed 10/16 but no fluid obtained. On zosyn, vanc. CT shows improvement in abscess. She is not . If she continues to show improvement, tentative plan will be for home with 10 days of linezolid 600mg bid, cipro 500mg bid, and flagyl 500mg tid. Would like to continue abx at home until abscess is completely resolved (will need outpt CT or u/s). Will follow
--- NOTE | 2018-10-20 15:45 | DCINST_ITS ---
- Discharge Diagnoses Current Active Problems: Current Active and Chronic Problems (Last Updated 10/06/18 @ 20:57 by Janell Zuñiga MD) Separation of wound with drainage, (Acute) pelvic abscess (Acute) Reason(s) for Visit for Discharge Instructions: Post-op infection You will use the following diet at home:: No restrictions Your food should be the consistency of: Regular Discharge Activity: Return to Normal Activity, May not drive while taking narcotic pain medications., May Shower, - - No tub bath, nothing in the vagina (no douching, no tampons, no intercourse) May resume sexual activity in: 4 weeks Lifting Restrictions: 10 lb Call your doctor if you observe: Fever of 101 or Higher, Inability to urinate, Inability to have a bowel movement, Using more than one pad per hour, Shortness of breath, Chest pain, Calf discomfort, Uncontrolled pain Suture Line Care: Avoid Pulling/Pushing Cleanse incision/area with: Soap & Water, Keep Dressing Clean & Dry Allergies/Adverse Reactions: Allergies No Known Allergies Allergy (Verified 10/14/18 03:25) Medications to take at Discharge Tablet 1 tab PO DAILY 10/06/18 Ibuprofen [Motrin] 600 mg PO Q8H PRN PRN #30 tablet 10/10/18 Senna/Docusate Sodium [Senokot-S] 1 - 2 tablet PO DAILY PRN #60 tablet 10/10/18 Ciprofloxacin [Cipro] 500 mg PO BID #20 tablet 10/20/18 Linezolid 600 mg PO Q12H 10 Days #20 tablet 10/20/18 Metronidazole [Flagyl] 500 mg PO Q8H #30 tablet 10/20/18 Oxycodone [Oxyir] 1 - 2 tab PO Q6H PRN PRN 7 Days #28 tablet 10/20/18 Saccharomyces Boulardii [Florastor] 250 mg PO BID #60 capsule 10/20/18 The following prescriptions were given: Oxycodone [Oxyir] 1 - 2 tab PO Q6H PRN PRN 7 Days #28 tablet PRN Reason: Severe Pain (6-06/07) Linezolid 600 mg PO Q12H 10 Days #20 tablet Metronidazole [Flagyl] 500 mg PO Q8H #30 tablet Ciprofloxacin [Cipro] 500 mg PO BID #20 tablet Saccharomyces Boulardii [Florastor] 250 mg PO BID #60 capsule Primary Care Physician: Care Physician,No Primary [Primary Care Provider] - Test Results: Test results from this visit will be discussed in further detail at your follow- up appointment, if applicable. Please Follow Up With: Janell Zuñiga MD When: 3-7 days
--- NOTE | 2018-10-20 16:01 | PN.OBGYN_ITS ---
Patient Problems: Active and Suspected Problems (Last Updated 10/06/18 @ 20:57 by Janell Ramirez MD) Separation of wound with drainage, (Acute) pelvic abscess (Acute) Subjective: Doing well, pain controlled. No new complaints. Denies fever, chills. Objective: Tm 100.2 - Physical Exam General: Alert, Oriented x3, Cooperative, No apparent distress HEENT: Atraumatic, Normocephalic Lungs: Normal air movement Abdomen: Soft, Non-Distended, - - tenderness surrounding drain site unchanged from prior without rebound or guarding, incisional dressing c/d/i Neurological: Neuro grossly intact Psych/Mental Status: Normal Affect, Appropriate, Alert and oriented to time, place, person, mood and affect Vital Signs Temp Pulse Resp BP Pulse Ox 98.9 F 100 18 117/78 99 10/20/18 14:17 10/20/18 14:17 10/20/18 14:17 10/20/18 14:17 10/20/18 14:17 Oxygen Flow Rate (L/min) [4] 2 Oxygen Flow Rate (L/min) [3] 2 Oxygen Flow Rate (L/min) [2] 2 Oxygen Flow Rate (L/min) [1 ( 2 Initial Baseline)] Oxygen Delivery Method [4] Nasal Cannula Oxygen Delivery Method [3] Nasal Cannula Oxygen Delivery Method [2] Nasal Cannula Oxygen Delivery Method [1 ( Nasal Cannula Initial Baseline)] Oxygen Delivery Method Room Air Weight: 91.6 kg Body Mass Index (BMI) 34.7 Intake and Output for Last 24 Hours 10/18/18 10/19/18 10/20/18 23:59 23:59 23:59 Intake Total 2858 / 2858 2731 / 2731 1823 / 1823 Output Total 850 / 850 900 / 900 0 / 0 Balance 2007 1831 / 1831 1823 / 1823 Microbiology Past 72 Hours 10/18/18 09:15 Blood Culture - Preliminary Blood Culture (Wb) - Anticubital Right No growth in 48 hours. 10/18/18 09:30 Blood Culture - Preliminary Blood Culture (Wb) - Anticubital Right No growth in 48 hours. 10/17/18 21:50 Urine Culture - Final Interface Orders Culture exhibits no growth. 10/16/18 04:54 Blood Culture - Preliminary Blood Culture (Wb) - Right Hand No growth in 48 hours. 10/16/18 04:50 Blood Culture - Preliminary Blood Culture (Wb) - Left Hand No growth in 48 hours. Laboratory Tests Past 24 Hrs 10/20/18 10/20/18 10/20/18 06:40 06:40 11:00 WBC 21.1 H RBC 3.49 L Hgb 10.7 L Hct 33.9 L MCV 97.1 MCH 30.7 MCHC 31.6 L RDW 13.2 RDW Differential 46.5 H Plt Count 432 MPV 8.4 Immature Gran % (Auto) 1.900 H Neut % (Auto) 75.5 H Lymph % (Auto) 14.[address] [place] % (Auto) 6.9 Eos % (Auto) 1.3 Baso % (Auto) 0.2 Absolute Neuts (auto) 15.9 H Absolute Lymphs (auto) 2.99 Total Counted Not Reportable Reactive Lymphocytes RARE Platelet Estimate ADEQUATE RBC Morphology N CYTIC Hypochromasia RARE Sodium 140 Potassium 4.3 Chloride 106 Carbon Dioxide 28.0 Anion Gap 6 BUN 6 L Creatinine 0.74 Estim Creat Clear Calc 104.72 Est GFR (MDRD) Af Amer 128 Est GFR (MDRD) Non-Af 106 BUN/Creatinine Ratio 8.2 L Glucose 68 L Calcium 8.7 Vancomycin Trough 15.3 H Medical Necessity - Tobacco Use Smoking Status: Current every day smoker Assessment/Plan All Active Problems (Last Updated 10/06/18 @ 20:57 by Janell Zuñiga MD) Separation of wound with drainage, (Acute) pelvic abscess (Acute) Status post section (Acute) Maternal fever during labor (Acute) 22yo POD#13 s/p PLTCS readmitted with fever, leukocytosis and right pelvic phlegmon - clinically improved from prior -JOHAN with scant drainage - pulled, steristrips placed -Incisional dressing changed immediately prior to my visit - previous one reviewed with minimal additional saturation -Discussed plan of care further with ID. Will plan d/c home tomorrow if 48h afebrile. -Continue Lovenox x 48h at least in case of SPT
--- NOTE | 2018-10-20 20:20 | NURSING ---
This RN walked into pt's room to hang 2000 Vancomycin and 1400 Zosyn bag was still half full and had never finished infusing. Called Pharmacy and pharmacist stated to take down the 1400 Zosyn bag and hang the Vanco, then hang the next scheduled dose of Zosyn due at 2200. Will make MD aware of 1/2 infused Zosyn.
[2018-10-20 20:29] VITALS: BP 160/73; PULSE 87; RESP 18; TEMP 37; O2SAT 100
[2018-10-20] MEDS: 0.9% NaCl Peripheral Flush Adult/Peds IV (23:30)
[2018-10-21 02:44] VITALS: BP 128/76; PULSE 106; RESP 18; TEMP 37.2; O2SAT 100
[2018-10-21] MEDS: oxyCODONE 5 MG Tablet 10 MG PO ×2 (02:47→09:08)
[2018-10-21] MEDS: Enoxaparin 40 MG/0.4 ML Syringe SC (07:09)
[2018-10-21] MEDS: Acetaminophen 325 MG Tablet 650 MG PO (07:10)
[2018-10-21 07:23] LABS: Absolute Lymphocyte Count 2.53 X10^3/ul (0.83-4.51); Absolute Neutrophil Count 11.8 X10^3/uL (2.0-7.7); Basophil# 0.06 X10^3/uL; Basophil% 0.4 % (0-1); Eosinophils% 1.9 % (0-5); Hematocrit 33.8 % (37-47); Hemoglobin 10.5 g/dl (12.0-15.0); Lymphocyte # 2.53 X10^3/ul (4.0); Lymphocyte % 15.7 % (19-41); Mean Corp Hgb Conc 31.1 g/gl (32-36); Mean Corpuscular Hgb 30.7 pg (27.0-32.0); Mean Corpuscular Volume 98.8 fL (81-99); Mean Platelet Vol. 8.6 fl (6.2-12.0); Monocyte# 1.19 X10^3/uL; Monocyte% 7.4 % (0-10); Neutrophil # 11.75 X10^3/uL (2.7-7.7); Neutrophil % 72.6 % (47-70); Platelet Count 468 K/mm3 (150-450); RBC Distribution Width CV 12.8 % (11.6-14.6); RBC Distribution Width SD 45.1 fl (35.1-43.9); Red Blood Count 3.42 M/mm3 (4.2-5.4); White Blood Count 16.2 K/mm3 (4.4-11.0)
[2018-10-21 07:48] LABS: Differential Indicated SCAN CRITERIA MET; POSITIVE COUNT YES; POSITIVE DIFFERENTIAL NO; POSITIVE MORPHOLOGY YES
[2018-10-21 07:55] LABS: Anion Gap 10 (5-15); BUN 3 mg/dL (7-18); BUN/Creat Ratio 3.7 RATIO (10-20); Calcium,Total 8.1 mg/dL (8.5-10.1); Chloride 107 mmol/L (98-107); EST Glomerular Filtration Rate 96 mL/min (>60); Est Glom Filt Rate - Afr Amer 116 mL/min (>60); Estimated Creatinine Clearance 96.06 ml/min; Glucose 53 mg/dL (74-106); Potassium 4.4 mmol/L (3.5-5.1); Sodium Level 143 mmol/L (136-145)
[2018-10-21 08:13] VITALS: BP 100/58; PULSE 86; RESP 18; TEMP 37.3; O2SAT 99
[2018-10-21] MEDS: Lisinopril 5 MG Tablet PO (09:09)
--- NOTE | 2018-10-21 10:42 | PN.OBGYN_ITS ---
Patient Problems: Active and Suspected Problems (Last Updated 10/06/18 @ 20:57 by Janell Ramirez MD) Separation of wound with drainage, (Acute) pelvic abscess (Acute) Subjective: Patient without complaints. Pain well controlled with pain medication. Tolerating diet well now. Pain slowly resolving. Minimal bleeding from C- section incision. - Physical Exam Vital Signs AF, VSS for 48 hours plus Temp Pulse Resp BP Pulse Ox 99.1 F 86 18 100/58 L 99 10/21/18 08:13 10/21/18 08:13 10/21/18 08:13 10/21/18 08:13 10/21/18 08:13 Oxygen Flow Rate (L/min) [4] 2 Oxygen Flow Rate (L/min) [3] 2 Oxygen Flow Rate (L/min) [2] 2 Oxygen Flow Rate (L/min) [1 ( 2 Initial Baseline)] Oxygen Delivery Method [4] Nasal Cannula Oxygen Delivery Method [3] Nasal Cannula Oxygen Delivery Method [2] Nasal Cannula Oxygen Delivery Method [1 ( Nasal Cannula Initial Baseline)] Oxygen Delivery Method Room Air Weight: 201 lb 15.095 oz Body Mass Index (BMI) 34.7 Intake and Output for Last 24 Hours 10/19/18 10/20/18 10/21/18 23:59 23:59 23:59 Intake Total 2731 / 2731 2495 / 2495 603.1 / 603.1 Output Total 900 / 900 0 / 0 Balance 1831 / 1831 2495 / 2495 603.1 / 603.1 Microbiology Past 72 Hours 10/18/18 09:15 Blood Culture - Preliminary Blood Culture (Wb) - Anticubital Right No growth in 48 hours. 10/18/18 09:30 Blood Culture - Preliminary Blood Culture (Wb) - Anticubital Right No growth in 48 hours. 10/17/18 21:50 Urine Culture - Final Interface Orders Culture exhibits no growth. 10/16/18 04:54 Blood Culture - Preliminary Blood Culture (Wb) - Right Hand No growth in 48 hours. 10/16/18 04:50 Blood Culture - Preliminary Blood Culture (Wb) - Left Hand No growth in 48 hours. Laboratory Tests Past 24 Hrs 10/20/18 10/21/18 10/21/18 11:00 06:46 06:46 WBC 16.2 H RBC 3.42 L Hgb 10.5 L Hct 33.8 L MCV 98.8 MCH 30.7 MCHC 31.1 L RDW 12.8 RDW Differential 45.1 H Plt Count 468 H MPV 8.6 Immature Gran % (Auto) 2.000 H Neut % (Auto) 72.6 H Lymph % (Auto) 15.7 L [place] % (Auto) 7.4 Eos % (Auto) 1.9 Baso % (Auto) 0.4 Absolute Neuts (auto) 11.8 H Absolute Lymphs (auto) 2.53 Total Counted Not Reportable Diff Path Review December foll Sodium 143 Potassium 4.4 Chloride 107 Carbon Dioxide 26.0 Anion Gap 10 BUN 3 L Creatinine 0.80 Estim Creat Clear Calc 96.06 Est GFR (MDRD) Af Amer 116 Est GFR (MDRD) Non-Af 96 BUN/Creatinine Ratio 3.7 L Glucose 53 L Calcium 8.1 L Vancomycin Trough 15.3 H Wounds are clean, dry, intact. JOHAN site okay and dressing removed. Now afebrile for greater than 48 hours. Medical Necessity - Tobacco Use Smoking Status: Current every day smoker Assessment/Plan All Active Problems (Last Updated 10/06/18 @ 20:57 by Janell Zuñiga MD) Separation of wound with drainage, (Acute) pelvic abscess (Acute) Status post section (Acute) Maternal fever during labor (Acute) Postoperative abscess resolving on IV Zosyn and vancomycin. Now afebrile for more than 48 hours. White count also diminishing and 16 today. Will switch to oral antibiotics including linezolid, Cipro and Flagyl and release to home. Will also continue on daily Lovenox. Follow-up in the office early next week.
--- NOTE | 2018-10-21 11:03 | PCM.DC.BLA ---
Discharge Summary Date of Admission: 10/14/18 Date of Discharge: 10/21/18 Summary: Admission diagnosis: Postoperative Abscess, Sepsis Discharge diagnosis: Postoperative Abscess, Sepsis, Endometritis History of present illness: This is a 23-year-old patient who presented to the emergency room with lower abdominal pain and nausea and vomiting. She had a section approximately 8 days earlier. Her section was without complication although she did have some leukocytosis postoperatively. No fevers were noted in the postoperative period otherwise. Patient was afebrile upon admission to the emergency department. Physical exam: Lower pelvic and especially right lower quadrant tenderness were noted although there was no rebound or guarding. Some mild right CVA tenderness was noted. Exquisite tenderness over the uterine fundus was noted. Hospital course: In the emergency room a CAT scan was done which showed a 4 cm right pelvic abscess. White blood count was also elevated to approximately 24,000. Given this was felt that it was prudent to admit the patient for observation and IV antibiotics. At that point it was felt that surgical exploration was not warranted as the patient had no fever and her abdomen was not acute. IV Zosyn was started. On hospital day #2 the patient spiked a fever to 102.2 ?F and it was felt that drain placement under CT guidance may be appropriate. This was performed by the radiology department with minimal drainage fluid noted after placement. On hospital day #3 the patient remained afebrile but white count was elevated to 23,000. She was continued on Zosyn. Given the persistent leukocytosis an infectious disease consultation was obtained and it was recommended that vancomycin be added. There was also noted to be some small separation of the incision site and serosanguineous drainage without purulent fluid. On hospital day #4 patient felt better was passing flatus but minimal OJHAN drain site drainage was noted and white count continued at 24.6 thousand. T-max was 103 ?F. However, the patient did not appear septic and the abdomen was not acute. Given this, Zosyn and vancomycin IV were continued and a repeat CAT scan was ordered. There was noted to be some bleeding from her incision site so Lovenox which had been started the previous day was discontinued. On hospital day #4 the patient's appetite was improved and she was out of bed passing flatus. Abdominal pain and appetite were improved and white count was diminished to 20.6 thousand. Repeat CAT scan showed a smaller fluid collection and was improved versus the initial CT scan. Discussion regarding home on oral antibiotics was started per the infectious disease consultants but later in the day the patient's fever spiked to 101.5 ?F. A discussion was started regarding transfer the patient to a tertiary facility in the event that surgery may be needed but after this was arranged the patient declined. It was decided to restart the patient on Lovenox with a pressure dressing applied. On hospital day #6, which was postoperative day #13, white count was 21.1 thousand. She was continued on vancomycin and Zosyn and remained afebrile. Her overall appearance continued to improve. On hospital day #7 and postoperative day #14 white count was noted to have diminished to 16.2 thousand and she had been afebrile for 48 hours. At this point it was felt that she was appropriate for discharge home on oral antibiotics including linezolid 600 mg twice daily, Cipro 500 mg twice daily and Flagyl 500 mg 3 times daily. She was also continued on Lovenox 40 mg subcutaneous daily until she sees Dr. Yi Ramirez early next week. Discharge instructions and follow-up: Patient was instructed not to drive for several days, not to put anything in the vagina for another 2-3 weeks, and to call the office for an appointment early next week. She was also given prescriptions to continue oral antibiotics as noted above as well as Lovenox sq. She also has a prescription for oxycodone to be used sparingly for pain. She was encouraged to use oral ibuprofen and Tylenol as needed for minor to moderate pain. She was instructed to call if pain increased or if she had a fever higher than 101 ?F. Patient Problems: Active and Suspected Problems (Last Updated 10/06/18 @ 20:57 by Janell Zuñiga MD) Separation of wound with drainage, (Acute) pelvic abscess (Acute) - Physical Exam Vital Signs Temp Pulse Resp BP Pulse Ox 99.1 F 86 18 100/58 L 99 10/21/18 08:13 10/21/18 08:13 10/21/18 08:13 10/21/18 08:13 10/21/18 08:13 Oxygen Flow Rate (L/min) [4] 2 Oxygen Flow Rate (L/min) [3] 2 Oxygen Flow Rate (L/min) [2] 2 Oxygen Flow Rate (L/min) [1 ( 2 Initial Baseline)] Oxygen Delivery Method [4] Nasal Cannula Oxygen Delivery Method [3] Nasal Cannula Oxygen Delivery Method [2] Nasal Cannula Oxygen Delivery Method [1 ( Nasal Cannula Initial Baseline)] Oxygen Delivery Method Room Air Weight: 201 lb 15.095 oz Body Mass Index (BMI) 34.7 Intake and Output for Last 24 Hours 10/19/18 10/20/18 10/21/18 23:59 23:59 23:59 Intake Total 2731 / 2731 2495 / 2495 603.1 / 603.1 Output Total 900 / 900 0 / 0 Balance 1831 / 1831 2495 / 2495 603.1 / 603.1 Microbiology Past 72 Hours 10/16/18 04:54 Blood Culture - Final Blood Culture (Wb) - Right Hand No growth in 5 days. 10/16/18 04:50 Blood Culture - Final Blood Culture (Wb) - Left Hand No growth in 5 days. 10/18/18 09:15 Blood Culture - Preliminary Blood Culture (Wb) - Anticubital Right No growth in 48 hours. 10/18/18 09:30 Blood Culture - Preliminary Blood Culture (Wb) - Anticubital Right No growth in 48 hours. 10/17/18 21:50 Urine Culture - Final Interface Orders Culture exhibits no growth. Laboratory Tests Past 24 Hrs 10/20/18 10/21/18 10/21/18 11:00 06:46 06:46 WBC 16.2 H RBC 3.42 L Hgb 10.5 L Hct 33.8 L MCV 98.8 MCH 30.7 MCHC 31.1 L RDW 12.8 RDW Differential 45.1 H Plt Count 468 H MPV 8.6 Immature Gran % (Auto) 2.000 H Neut % (Auto) 72.6 H Lymph % (Auto) 15.7 L [place] % (Auto) 7.4 Eos % (Auto) 1.9 Baso % (Auto) 0.4 Absolute Neuts (auto) 11.8 H Absolute Lymphs (auto) 2.53 Total Counted Not Reportable Diff Path Review May foll Sodium 143 Potassium 4.4 Chloride 107 Carbon Dioxide 26.0 Anion Gap 10 BUN 3 L Creatinine 0.80 Estim Creat Clear Calc 96.06 Est GFR (MDRD) Af Amer 116 Est GFR (MDRD) Non-Af 96 BUN/Creatinine Ratio 3.7 L Glucose 53 L Calcium 8.1 L Vancomycin Trough 15.3 H
--- NOTE | 2018-10-21 12:09 | CM.UR ---
Was contacted by Charge Nurse, Nani stating that Dr. Brady ordered lovenox daily for patient to go home on. Contacted [facility] and confirmed that no pre-cert is needed and there is no co-pay for the medication. Notified SRINATH Cardoza of no prior auth and no-copay for medication. Nolberto Mishra RN, [facility].
--- NOTE | 2018-10-22 13:33 | NURSING ---
patient called in and states that she did not receive atb from drug store yesterday or a blood thinner. This RN notified patient that 3 antibiotics were ordered and sent to [facility]. Patient states that she did not realize what she was missing and will call to check if they have any prescriptions for her. Notified pt that she should have blood thinner on a paper script as well. Pt notified to call hospital and ask to speak to whomever is aeronautical inspector for Dr. Zuñiga- but that if she has any trouble not to hesitate to call [facility] again. Pt verbalized understanding and denied further needs at this time.
[2018-10-23 12:06] LABS: Pathologist Review Reviewed
== END 2018-10-21 12:23 | disposition home or self-care (01) | DRG 561 ==
LOC: MS3 10-16 07:43 → ED 10-16 08:33 → MS3 10-16 10:37
PROVIDERS: Internal Medicine Infectious Disease; Obstetrics & Gynecology; Admitting Provider Obstetrics & Gynecology; Emergency Provider Emergency Medicine; Visit Provider Obstetrics & Gynecology
DX: O86.03 Infection of obstetric surgical wound, organ and space site (principal); O86.04 Sepsis following an obstetrical procedure; A41.9 Sepsis, unspecified organism; O99.89 Other specified diseases and conditions complicating pregnancy, childbirth and the puerperium; N13.39 Other hydronephrosis; O99.335 Smoking (tobacco) complicating the puerperium; F17.210 Nicotine dependence, cigarettes, uncomplicated; O90.0 Disruption of cesarean delivery wound; O86.12 Endometritis following delivery
CPT/HCPCS: 36415; 74177; 75989; 80048; 80053; 80076; 80202; 81001; 83605; 83690; 85025; 85610; 85730; 87040; 87086; 99156; 99284; 99406; J7030; J7040; J7050; J7120; Q9967; A4216; J2405

== ENCOUNTER → 2018-11-07 16:50 | Outpatient (CLI) | payer MEDICAID, SELFPAY ==
[2018-10-16 12:53] VITALS: BMI 34.7
[2018-11-07 18:32] LABS: Vitamin B12 1535 pg/mL (211-911); Vitamin D,25 Hydroxy 16.9 ng/mL (29.95-100.01)
[2018-11-08 10:41] LABS: Thyroid Stim Hormone (TSH) 0.83 uIU/mL (0.358-3.74)
== END ==
PROVIDERS: Visit Provider Obstetrics & Gynecology
DX: F53.0 Postpartum depression (principal); F41.9 Anxiety disorder, unspecified
CPT/HCPCS: 82306; 82607; 83921; 84443

== ENCOUNTER 2018-11-20 22:53 | Emergency (ER) | payer MEDICAID, SELFPAY ==
[2018-10-16 12:53] VITALS: BMI 34.7
[2018-11-20 22:56] VITALS: BP 154/86; PULSE 84; RESP 18; TEMP 37.2; O2SAT 95; BMI 30.5
--- NOTE | 2018-11-20 23:28 | CM.ED ---
Social Work Assessment Reason for Referral: SI Informant: Danilo Rivera RN Information obtained from: Medical record and pt. Pt is alert and oriented x3 and able to participate in assessment. Pt presents with flat affect as evidenced by no change in facial expression or tone of voice throughout conversation. Living Arrangements: Pt reports to live with her significant other and his mother. Pt has been with her significant other for approximately 1 year and they have a two month old son. Employment: Pt is unemployed at this time, and significant other works 3rd shift. Transportation: Pt has access to transportation. Supports: Pt identifies her boyfriends mother, Genia, and his grandmother, as her primary supports. Stressors: States that she is feeling more down since having the baby and today she was upset with her boyfriend as he woke the baby up and then told her it was a mistake being with her. Resources: Medicaid, Food [place], WIC. Educated to [facility] and pt denies at this time. Abuse/Neglect: Denies abuse or neglect in the home and confirms she feels safe. Mental Health Hx: Reports a hx of anxiety and depression. States that she has felt more down the last few weeks and saw her OBGYN who placed her on Gabapentin. She is on a waiting list for a psychiatrist at the counseling center. She saw a counseling there approximately 3 weeks ago. Pt states that this is the first time that she has cut in over a year. Reports that she did it to make herself feel better and that she and had no intention of harming herself. She denies a plan to kill herself or thoughts of wanting to kill herself. Discussed alternative coping mechanisms and the concerns/risks associated with cutting. At this time pt does not meet criteria for psychiatric hospitalization. Recommend that sitter be removed. Educated to [facility] program through [facility] and pt denies services at this time. Substance Use Hx: Pt reports tobacco use. ASSESSMENT: Based on presentation and evaluation pt does not meet criteria for psychiatric hospitalization. Symptoms are congruent with PPD and pt is seeking help from her OBGYN as well as the counseling center at this time. Pt is agreeable to following up with her PCP and a counselor while awaiting to be seen by a psychiatrist. Discussed case with physician who would still like crisis to evaluate the pt. Sitter to be removed. Intervention(s): Assessment complete and pt is not a suicide risk. Discussed with physician who would still like crisis to evaluate. PLAN: Crisis to see per physicians request for additional resource linkage. Deirdre Webster, WASTE WATER OR WATER PLANT OPERATOR, MARCELA
[2018-11-21] MEDS: Acetaminophen 500 MG Tablet 1000 MG PO (00:04)
[2018-11-21 00:20] VITALS: RESP 15
[2018-11-21 00:21] LABS: Absolute Neutrophil Count 7.3 X10^3/uL (2.0-7.7); Basophil# 0.03 X10^3/uL; Basophil% 0.3 % (0-1); Eosinophil# 0.08 X10^3/uL; Eosinophils% 0.8 % (0-5); Hematocrit 40.2 % (37-47); Hemoglobin 13.4 g/dl (12.0-15.0); Lymphocyte % 20.7 % (19-41); Mean Corp Hgb Conc 33.3 g/gl (32-36); Mean Corpuscular Hgb 31.6 pg (27.0-32.0); Mean Corpuscular Volume 94.8 fL (81-99); Mean Platelet Vol. 8.9 fl (6.2-12.0); Monocyte# 0.59 X10^3/uL; Monocyte% 5.8 % (0-10); Neutrophil # 7.33 X10^3/uL (2.7-7.7); Neutrophil % 72.1 % (47-70); Platelet Count 225 K/mm3 (150-450); RBC Distribution Width SD 40.8 fl (35.1-43.9); Red Blood Count 4.24 M/mm3 (4.2-5.4); White Blood Count 10.2 K/mm3 (4.4-11.0)
[2018-11-21 00:23] LABS: POSITIVE COUNT NO; POSITIVE DIFFERENTIAL NO; POSITIVE MORPHOLOGY NO
[2018-11-21 00:27] LABS: Amphetamine Urine VISTA NEGATIVE (<1000 ng/mL); Barbiturate Urine VISTA NEGATIVE (< 200 ng/mL); Benzodiazepine Urine VISTA NEGATIVE (< 200 ng/mL); Cocaine Urine VISTA NEGATIVE (< 300 ng/mL); Ecstacy Urine VISTA NEGATIVE (< 500 ng/mL); Methadone Urine VISTA NEGATIVE (< 300 ng/mL); PCP Urine VISTA NEGATIVE (< 25 ng/mL); THC Urine VISTA NEGATIVE (< 50 ng/mL); Vista UDS pH Range 6
[2018-11-21 00:37] LABS: Anion Gap 6 (5-15); BUN 10 mg/dL (7-18); BUN/Creat Ratio 12.9 RATIO (10-20); Calcium,Total 8.8 mg/dL (8.5-10.1); Chloride 107 mmol/L (98-107); Creatinine, Serum 0.77 mg/dL (0.55-1.02); EST Glomerular Filtration Rate 100 mL/min (>60); Est Glom Filt Rate - Afr Amer 121 mL/min (>60); Glucose 86 mg/dL (74-106); Potassium 3.5 mmol/L (3.5-5.1); Sodium Level 139 mmol/L (136-145)
--- NOTE | 2018-11-21 00:37 | ED.RN ---
crisis called they will be in 30 mins
[2018-11-21 00:47] LABS: Pregnancy, Serum, hCG Quali. NEGATIVE Negative (0-9 Nonpreg)
[2018-11-21 00:52] LABS: Alcohol, Blood (Medical)-Serum < 3.0 mg/dL
[2018-11-21 01:10] VITALS: BP 116/70; PULSE 90; RESP 16; O2SAT 98
--- NOTE | 2018-11-21 02:41 | ED.DCSUM_ITS ---
- ER Visit Summary Date of Service: 11/21/18 Chief Complaint: Self injury History of Present Illness: The patient is a 23 F who presents with intentional self-harm. She was more depressed today after a fight with her boyfriend. Therefore she cut herself intentionally on both forearms multiple times. She denies any suicidal ideation. No homicidal ideation. She denies recent medical illness. She did recently deliver 6 weeks ago. She has depression. She was restarted on an antidepressant by her guard rail installer. She has called the counseling center but does not have an intake appointment for a couple of weeks. Physical Examination: Afebrile vitals unremarkable Moist mucous membranes Heart regular rate and rhythm Lungs clear Abdomen soft There are 15 separate superficial left forearm lacerations, there are 14 superficial right forearm lacerations none of these require suturing they are all roughly 5 cm Test Results: CBC BMP unremarkable, negative, tox positive for opiates, alcohol negative. Emergency Department Course and Treatment: I ordered a tetanus immunization although this was refused by the patient. She was evaluated by crisis. At this time I do not feel she meets criteria for involuntary hospitalization. Crisis was able to develop a safety plan and will see her closely in follow-up and the patient was discharged. Treatment Plan: [] Disposition: Discharge Impression: Self injury Depression Multiple forearm lacerations This note was generated with [employer] dictation software. It may contain incorrect words, spelling, and punctuation that were not noted in review of the chart prior to signing ED Disposition - Plan for ED Patient: Referrals: Care Physician,No Primary [Primary Care Provider] -
--- NOTE | 2018-11-21 02:41 | ED.DEP ---
ED Disposition - Plan for ED Patient: Instructions: ED Depression, ED Contract, No Harm Referrals: Care Physician,No Primary [Primary Care Provider] - Counseling,Center [GROUP OF PHYSICIANS] -
[2018-11-21 02:51] VITALS: RESP 15; O2SAT 100
--- NOTE | 2018-11-21 02:52 | ED.RN ---
pt given written and verbal discharge instructions and home going paperwork. pt educated on depression and no harm contract. pt to contact counseling center tomorrow for appt. pt verbalizes understanding. work note given for spouse who called off to support pt with dr. dockery permission. pt assisted in calling for a ride. pt dresses self and ambulates out of dept to waiting room to wait for ride.
== END 2018-11-21 02:54 | disposition home or self-care (01) ==
PROVIDERS: Emergency Provider Emergency Medicine
DX: S51.812A Laceration without foreign body of left forearm, initial encounter (principal); S51.811A Laceration without foreign body of right forearm, initial encounter; X78.9XXA Intentional self-harm by unspecified sharp object, initial encounter; Y93.89 Activity, other specified; Y92.9 Unspecified place or not applicable; F32.9 Major depressive disorder, single episode, unspecified; Z72.0 Tobacco use
CPT/HCPCS: 36415; 80048; 80307; 80320; 84703; 85025; 90715; 99285; G0480

== ENCOUNTER 2019-01-13 00:55 | Emergency (ER) | payer MEDICAID, SELFPAY ==
[2019-01-13] VITALS (8 sets, daily range): BP systolic 97–136; BP diastolic 41–89; PULSE 84–127; RESP 14–18; TEMP 37.1–37.2; O2SAT 96–99; BMI 28.8
[2019-01-13 01:31] LABS: Absolute Lymphocyte Count 2.01 X10^3/ul (0.83-4.51); Absolute Neutrophil Count 6.1 X10^3/uL (2.0-7.7); Basophil# 0.01 X10^3/uL; Basophil% 0.1 % (0-1); Eosinophil# 0.15 X10^3/uL; Eosinophils% 1.7 % (0-5); Hemoglobin 13.3 g/dl (12.0-15.0); Lymphocyte # 2.01 X10^3/ul (4.0); Lymphocyte % 22.9 % (19-41); Mean Corp Hgb Conc 34.1 g/gl (32-36); Mean Corpuscular Hgb 30.5 pg (27.0-32.0); Mean Corpuscular Volume 89.4 fL (81-99); Mean Platelet Vol. 9.4 fl (6.2-12.0); Monocyte# 0.51 X10^3/uL; Monocyte% 5.8 % (0-10); Neutrophil # 6.08 X10^3/uL (2.7-7.7); Neutrophil % 69.4 % (47-70); Platelet Count 229 K/mm3 (150-450); RBC Distribution Width CV 11.6 % (11.6-14.6); RBC Distribution Width SD 37.5 fl (35.1-43.9); Red Blood Count 4.36 M/mm3 (4.2-5.4); White Blood Count 8.8 K/mm3 (4.4-11.0)
[2019-01-13 01:32] LABS: POSITIVE COUNT NO; POSITIVE DIFFERENTIAL NO; POSITIVE MORPHOLOGY NO
[2019-01-13 01:36] LABS: Internal QC Validated? YES +Cl - CLEAR BKGD; Pregnancy, Serum, hCG Quali. NEGATIVE Negative
[2019-01-13 01:39] LABS: Amphetamine Urine VISTA NEGATIVE (<1000 ng/mL); Barbiturate Urine VISTA NEGATIVE (< 200 ng/mL); Benzodiazepine Urine VISTA NEGATIVE (< 200 ng/mL); Cocaine Urine VISTA NEGATIVE (< 300 ng/mL); Ecstacy Urine VISTA NEGATIVE (< 500 ng/mL); Methadone Urine VISTA NEGATIVE (< 300 ng/mL); PCP Urine VISTA NEGATIVE (< 25 ng/mL); THC Urine VISTA NEGATIVE (< 50 ng/mL); Vista UDS pH Range 5
[2019-01-13 01:40] LABS: Anion Gap 9 (5-15); BUN 9 mg/dL (7-18); BUN/Creat Ratio 9.2 RATIO (10-20); Calcium,Total 8.7 mg/dL (8.5-10.1); Chloride 106 mmol/L (98-107); Creatinine, Serum 0.98 mg/dL (0.55-1.02); EST Glomerular Filtration Rate 76 mL/min (>60); Est Glom Filt Rate - Afr Amer 92 mL/min (>60); Estimated Creatinine Clearance 85.01 ml/min; Glucose 122 mg/dL (74-106); Potassium 3.3 mmol/L (3.5-5.1); Sodium Level 139 mmol/L (136-145)
[2019-01-13] MEDS: Nicotine Polacrilex 2 MG GUM PO ×2 (01:43→06:03)
--- NOTE | 2019-01-13 02:03 | ED.RN ---
ARMANDO FROM CRISIS IS IN THE DEPARTMENT. NOTIFIED HER THAT THIS PT IS READY TO BE EVALUATED BY CRISIS.
--- NOTE | 2019-01-13 02:04 | ED.RN ---
ARMANDO [facility] IS EVALUATING THIS PT NOW.
--- NOTE | 2019-01-13 03:20 | ED.DCSUM_ITS ---
- ER Visit Summary Date of Service: 01/13/19 Chief Complaint: [Depression and suicidal ideation] History of Present Illness: The patient is a 23 F [presents the emergency department with depression and thoughts of self-harm. Patient states that she got into an argument with her boyfriend this evening. Patient then took a razor blade and cut both her wrists. Patient states that she delivered a baby about 3 months ago and she thinks she may have depression. Patient denied to me that she had any intention of killing herself although she did have those thoughts earlier in the day. Patient does have a history of depression and anxiety. Patient scheduled to see psychiatrist on the of the month. She denies any auditory or visual hallucinations. 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 Physical Examination: [HEENT-PERRLA, EOMI. Cranial nerves II through XII grossly intact. TMs clear. Mucous membranes moist. No adenopathy. Cardiovascular-regular rate and rhythm without murmur or ectopy Lungs-clear to auscultation, chest wall stable without crepitus or subcu emphysema Abdomen-normoactive bowel sounds, soft, nontender, no rebound or rigidity, no peritoneal signs. Extremities-intact ?4, normal range of motion, normal pulses, atraumatic] Test Results: [CBC with differential obtained was unremarkable. Chemistries unremarkable other than slightly depressed potassium at 3.3. Tox screen was positive for opiates. Alcohol was negative.] Emergency Department Course and Treatment: [Patient was evaluated by crisis and it became more apparent that patient continues to have thoughts of self-harm. Patient also stated that she really does not like her baby although she does not think she would harm her baby. Patient also has been on multiple antidepressants that she states have not worked for her. It was felt that patient would benefit from inpatient hospitalization.] Treatment Plan: [Admit to psychiatric facility] Disposition: [Transfer to psychiatric facility] Impression: [Depression Suicidal ideation] This note was generated with [employer] dictation software. It may contain incorrect words, spelling, and punctuation that were not noted in review of the chart prior to signing ED Disposition - Plan for ED Patient: Referrals: Care Physician,No Primary [Primary Care Provider] -
[2019-01-13] MEDS: LORazepam 1 MG Tablet PO (06:00)
[2019-01-13] MEDS: Acetaminophen 325 MG Tablet 650 MG PO (06:11)
--- NOTE | 2019-01-13 07:06 | ED.RN ---
BEDSIDE REPORT GIVEN TO SRINATH DELGADO
== END 2019-01-13 09:56 | disposition home or self-care (01) ==
PROVIDERS: Emergency Provider Emergency Medicine
DX: F32.9 Major depressive disorder, single episode, unspecified (principal); R45.851 Suicidal ideations; F41.9 Anxiety disorder, unspecified; Z87.898 Personal history of other specified conditions
CPT/HCPCS: 80048; 80307; 80320; 84703; 85025; 99285; G0480

== ENCOUNTER 2019-02-10 03:53 | Emergency (ER) | payer MEDICAID, SELFPAY ==
[2019-01-13 01:00] VITALS: BMI 28.8
[2019-02-10 03:55] VITALS: BP 144/96; PULSE 100; RESP 16; TEMP 37; O2SAT 95; BMI 26.9
--- NOTE | 2019-02-10 04:03 | ED.RN ---
CALLED CRISIS PER REQUEST OF DR CLINE TO REQUEST ARMANDO CALL IN
--- NOTE | 2019-02-10 04:05 | ED.DCSUM_ITS ---
- ER Visit Summary Date of Service: 02/10/19 Chief Complaint: Self injury History of Present Illness: The patient is a 23 F who presents for self injury. Patient states that she got into an argument with her boyfriend and she broke a mirror, taking a piece of the glass and started cutting her wrists. She states that she does that when she is angry because it helps relieve her tension. She denies any intention of committing suicide or trying to . She states it is something she has done for many years to relieve tension when she is upset or angry. Patient denies any drug use. She is not taking any medications to try and harm herself today. She is currently living at [facility]. Physical Examination: Vital signs: afebrile, hemodynamically stable, no hypoxia on room air General: well nourished, well developed, in no distress Skin: warm, dry, no rash, no pallor, multiple linear brandon-marked superficial lacerations to the bilateral volar wrists, no active hemorrhage, multiple healed scars on the upper extremities HEENT: normocephalic and atraumatic; PERRL, EOMI, moist mucous membranes Cardiovascular: regular rate and rhythm without murmurs, no peripheral edema, 2+ pulses all distal extremities Respiratory: No increased work of breathing, lungs are clear to auscultation bilaterally, no rales, rhonchi or wheezing Abdominal: Abdomen is soft, nontender with normoactive bowel sounds, no guarding or rebound, no masses MSK: Moves all extremities, no deformities, normal strength Neuro: Awake and alert, oriented ?4. No facial droop, sensation and motor function intact and symmetric Psych: Cooperative, appropriate mood and affect, no evidence of suicidal or homicidal ideation Test Results: [] Emergency Department Course and Treatment: Patient presents for evaluation after self inflicting multiple superficial cuts on her wrists. In my professional opinion, patient was not trying to kill herself but was cutting to relieve stress. Patient was discussed with Briseyda from the counseling center who is very familiar with her. She stated that this patient does cut to relieve tension and stress without suicidal intent. The plan is for crisis to contact patient tomorrow to set up a crisis appointment for Tuesday. Patient also already has an appointment coming up with her psychiatrist that she will keep. I discussed this plan with the patient, and she stated she will make and keep these appointments. Her wounds were cleaned, bacitracin applied, and they were dressed. Patient was given wound care instructions. [facility] Treatment Plan: [] Disposition: [] Impression: Self cutting This note was generated with [employer] dictation software. It may contain incorrect words, spelling, and punctuation that were not noted in review of the chart prior to signing ED Disposition - Plan for ED Patient: Disposition: Home or Assisted Living Instructions: ED Laceration Small Superf No Sutr Referrals: Care Physician,No Primary [Primary Care Provider] - Additional Instructions: Please keep your cuts on your wrists clean and bandaged until they heal. You may apply antibacterial ointment to help them. Wash them gently with soap and water. Do not soak them in the bathtub or other water. Please keep any appointments with your psychiatrist. The counseling center will call you tomorrow to set up a crisis appointment for Tuesday. If you have any worsening of your condition or any new concerning symptoms, please return immediately to the emergency department for another evaluation.
[2019-02-10 04:24] VITALS: BP 144/96; PULSE 100; RESP 16; O2SAT 95
== END 2019-02-10 04:28 | disposition home or self-care (01) ==
LOC: ED 04:27
PROVIDERS: Emergency Provider Emergency Medicine
DX: S61.512A Laceration without foreign body of left wrist, initial encounter (principal); S61.511A Laceration without foreign body of right wrist, initial encounter; X78.0XXA Intentional self-harm by sharp glass, initial encounter; Y93.9 Activity, unspecified; Y92.9 Unspecified place or not applicable; Z91.5 Personal history of self-harm
CPT/HCPCS: 99283

== ENCOUNTER 2019-03-19 15:03 | Emergency (ER) | payer MEDICAID, SELFPAY ==
[2019-03-19 15:04] VITALS: BP 146/75; PULSE 81; RESP 16; TEMP 36.6; O2SAT 97; BMI 30.9
--- NOTE | 2019-03-19 16:38 | ED.VIS.GEN ---
History of Present Illness Chief Complaint: Nausea/Vomiting Narrative: 23-year-old female presents with nausea, vomiting, and diarrhea for 24 hours. No abdominal discomfort. She took a test and was negative. She denies any recent travel or sick contacts. Denies unusual food intake. Denies fever, chills, back pain, or urinary symptoms. Current severity is mild. Past Medical History - Allergies and Home Meds Allergies/Adverse Reactions: Allergies No Known Allergies Allergy (Verified 03/19/19 15:49) Primary Care Physician: Care Physician,No Primary [Primary Care Provider] - Smoking Status: Current some day smoker Review of Systems General: Denies: Chills, Fever, Sweats Eyes: Denies: Visual changes - bilaterally, Diplopia ENT: Denies: Rhinorrhea, Sore throat Cardiovascular: Denies: Chest pain, Palpitations Respiratory: Denies: Dyspnea, Cough, Dyspnea on exertion Gastrointestinal: Reports: Nausea, Vomiting. Denies: Abdominal pain, Diarrhea, Melena, Hematochezia Genitourinary: Denies: Dysuria, Hematuria, Frequency Musculoskeletal: Denies: Back pain, Extremity Pain Skin: Denies: Rash, Wounds Neurological: Denies: Headache, Weakness, Numbness Physical Exam Vital Signs/Narrative: Vital Signs Temp Pulse Resp BP Pulse Ox 03/19/19 15:04 97.8 F 81 16 146/75 H 97 General: Well nourished, Well developed, No Acute Distress Head: Normocephalic, Atraumatic Eyes: Perrl, EOMI ENT: Moist mucous membranes, No rhinorrhea Neck: Supple, Nontender Cardiovascular: Regular rate, Regular rhythm, No murmurs Respiratory: No distress, CTA bilaterally, Chest nontender Abdomen: Soft, Nontender, Nondistended, Normal bowel sounds Back: Nontender, Normal Inspection Extremities: Nontender, No edema Skin: Normal color, No rash Neurological: Alert, Oriented x3, Cranial nerves II-XII grossly intact, Normal Strength, Normal Sensation Psychological: Normal affect, Normal Mood Diagnostic/Tx/Re-eval - Medical Decision Making Urinalysis and hCG are pending. She was given oral antiemetics and is hydrating orally. She has no abdominal discomfort at all. I feel she can safely be rehydrated orally. We discussed IV fluids but she would prefer oral. If her hCG is negative, I feel she can safely be discharged home with oral antiemetics and come back for repeat examination in 12 to 24 hours if worse. Care will be turned over to the oncoming physician to check hCG results and reevaluate. ED Disposition - Plan for ED Patient: Disposition: Home or Assisted Living Diagnosis: Nausea & vomiting Instructions: VOMITING (8y-Adult) Prescriptions: proMETHazine tablet [Phenergan] 25 mg PO Q6H PRN PRN #10 tablet PRN Reason: Nausea Referrals: Care Physician,No Primary [Primary Care Provider] -
[2019-03-19] MEDS: Ondansetron ODT 4 MG Tablet 8 MG PO (16:39)
[2019-03-19 16:41] LABS: Mucous, Urine 0 SEEN /hpf (<or=2+); Red Blood Cells-Urine 0 SEEN /hpf (0-5)
[2019-03-19 16:59] LABS: Color, Urine Yellow (Yellow); Glucose, Dipstick Normal (Normal); Ketone-Dipstick Negative (Negative); Leukocyte Esterase-Dipstick 25 /ul (Negative); Nitrite-Dipstick Negative (Negative); Occult Blood-Urine Negative /ul (Negative); Protein-Dipstick Negative (Negative); Urine Bilirubin Dipstick Negative (Negative); Urine Clarity Cloudy (Clear); Urine Urobilinogen Normal (Normal)
[2019-03-19 17:01] LABS: Internal QC Validated? YES +Cl - CLEAR BKGD; Pregnancy, Urine Negative Negative
[2019-03-19 17:05] LABS: White Blood Cells 0-5 SEEN /hpf (0-5)
[2019-03-19 17:06] LABS: Squamous Epithelial Cells - UA 0-5 SEEN /hpf (5-10)
[2019-03-19 17:08] LABS: Amorphous Sediment 1+; Bacteria 1+ /hpf (None Seen)
[2019-03-19 17:17] VITALS: PULSE 80; RESP 17; O2SAT 97
== END 2019-03-19 17:19 | disposition home or self-care (01) ==
PROVIDERS: Emergency Provider Emergency Medicine
DX: R11.2 Nausea with vomiting, unspecified (principal); R19.7 Diarrhea, unspecified; F17.200 Nicotine dependence, unspecified, uncomplicated
CPT/HCPCS: 81001; 81025; 99283

== ENCOUNTER 2019-06-20 13:39 | Emergency (ER) | payer MEDICAID, SELFPAY ==
[2019-06-20 13:42] VITALS: PULSE 109; RESP 28; TEMP 36.7; O2SAT 97; BMI 26.8
[2019-06-20 13:51] VITALS: BP 126/90; PULSE 108; RESP 16; O2SAT 95
--- NOTE | 2019-06-20 15:09 | CM.ED ---
Addendum entered by Deysi Stanton 06/20/19 15:29: Further review of patient chart, noting that patient was transferred to an inpatient psychiatric facility in Dec, 2018. Original Note: Social Work Consult: Mental Health Informant: Dr. Whyte Chief Complaint: Patient stating to have been fighting with patient boyfriend. Patient stating that patient boyfriend was calling patient names and patient began to cut self on forearms. Patient noted to also have two cuts to patient neck. Patient stating that the cutting helps me. It is like a cigarette but better. Marital/Social History: Currently dating Kasi. Patient stating to also have a 7 month old sonKasi that patient does not have custody of. Patient son is currently staying with patient boyfriends great aunt and children services is involved. Patient stating to have contact Children Services to take my son when patient was angry one day. Patient stating to have contacted children services to get back at Kasi (boyfriend). Living Situation: [facility] [employer]. Stating to be working with [facility] on establishing housing. Support/Resources: Patient stating boyfriend Kasi as main support. Follows with [facility] Ahu[facility]. Triggers/Stressors: Patient stating to worry about boyfriend Kasi as he is homeless. Patient stating to also think about sonKasi and worry that I won't be able to see him. Education/Employment: Patient stating to have a high school degree. Patient stating to have quit working at [employer] a month ago due to being angry. Mental Health Treatment/History: Patient stating to be diagnosed with Bi-polar. Patient denies taking medication, but later states I should get my prescription refilled and start taking my meds again. Patient denies any inpatient psychiatric placements in the past. Abuse Issues: Patient denies any current abuse. Substance Abuse Hx: Patient denies any substance use other then tobacco. Mental Status Exam: A&O x3 Appearance/General Behavior: Disheveled, unclean. Mood/Affect: Bizarre, difficulty staying on topic. Flight of ideas. Communication Pattern: Rapid speech pattern. Responds to questions. Rambling. Thought Process: Denies hallucinations or delusions. Risk to Self/Others: Patient denies any active suicidal thoughts. Patient with suicidal gesture as evidenced by cutting throat with knife. Patient also has cuts to forearms. Assessment: Met with patient in room. Introduced self as well as executive secretary social welfare role. Patient is agreeable to meet with this executive secretary social welfare. Patient difficulty to maintain topic and attention. Patient moving around in the bed and would often times pull up the sheet. Patient picking at arms and legs throughout assessment. Patient stating I get so angry. Patient stating to have broken patient only phone today. Patient stating I am crazy, huh. Collaborating with Dr. Whyte. Recommending inpatient psychiatric placement for stabilization due to suicidal gesture and current bizarre mood. PLAN: Will continue to follow for placement. Filemon GILLESPIE, MARCELA
[2019-06-20 15:13] VITALS: PULSE 91; RESP 17; O2SAT 98
--- NOTE | 2019-06-20 15:14 | ED.RN ---
ed charge auditor consulted about pt related to not being suicidal, but cutting her throat. instructed to wait till ed dr or crisis eval for suicidal percautions for patients safety. jt canas rn
--- NOTE | 2019-06-20 15:16 | ED.RN ---
after case management eval pt was determined to need a sitter. cd manufacturing supervisor placed in room as sitter and room cleaned of hazards per ed protocol. jt canas rn [id number]
[2019-06-20 15:17] LABS: Absolute Lymphocyte Count 2.57 X10^3/uL (0.83-4.51); Absolute Neutrophil Count 8.5 X10^3/uL (2.0-7.7); Basophil# 0.07 X10^3/uL; Basophil% 0.6 % (0-1); Eosinophil# 0.13 X10^3/uL; Hematocrit 39.4 % (37-47); Hemoglobin 13.6 g/dL (12.0-15.0); Lymphocyte # 2.57 X10^3/ul (4.0); Lymphocyte % 20.5 % (19-41); Mean Corp Hgb Conc 34.5 g/dL (32-36); Mean Corpuscular Hgb 30.6 pg (27.0-32.0); Mean Corpuscular Volume 88.7 fL (81-99); Mean Platelet Vol. 9.9 fl (6.2-12.0); Monocyte# 1.23 X10^3/uL; Monocyte% 9.8 % (0-10); NRBC Flagged by Analyzer 0 % (0-5); Neutrophil % 67.8 % (47-70); Platelet Count 244 K/mm3 (150-450); RBC Distribution Width CV 11.9 % (11.6-14.6); RBC Distribution Width SD 38.4 fl (35.1-43.9); Red Blood Count 4.44 M/mm3 (4.2-5.4); White Blood Count 12.5 K/mm3 (4.4-11.0)
[2019-06-20 15:34] LABS: Anion Gap 8 (5-15); BUN 9 mg/dL (7-18); BUN/Creat Ratio 12.4 RATIO (10-20); Chloride 107 mmol/L (98-107); Creatinine, Serum 0.72 mg/dL (0.55-1.02); EST Glomerular Filtration Rate 107 mL/min (>60); Est Glom Filt Rate - Afr Amer 130 mL/min (>60); Estimated Creatinine Clearance 106.73 ml/min; Glucose 78 mg/dL (74-106); Sodium Level 138 mmol/L (136-145)
[2019-06-20 15:38] LABS: Internal QC Validated? YES +Cl - CLEAR BKGD; Pregnancy, Serum, hCG Quali. NEGATIVE Negative
--- NOTE | 2019-06-20 15:52 | ED.VISSUMM ---
- ER Visit Summary Date of Service: 06/20/19 Chief Complaint: [Agitation and depression and suicidal gesture] History of Present Illness: The patient is a 23 F [presents to the emergency department via EMS. Patient apparently lives at a skilled nursing. Patient was arguing with her boyfriend who apparently was calling her names and she became quite angry and took a switch blade and started to carve the names that the boyfriend was calling her into her forearms. Patient then took the switchblade and also lacerated her throat. Patient does have history of depression as well as bipolar disorder. Patient is supposed to be on medication but does not take them. Patient denies any illicit drug use. She denies alcohol. Patient does have a 7-month-old baby but she does not have custody of the baby because of her depression issues. She tells me that she was just angry and impulsive and was not actually trying to kill herself.] Patient denies any paranoid ideation. She denies any hallucinations. She denies any homicidal ideation. Physical Examination: [HEENT-PERRLA, EOMI. Cranial nerves II through XII grossly intact. TMs clear. Mucous membranes moist. No adenopathy. Patient has very superficial linear lacerations over the anterior neck. None of these superficial wounds require any type of repair. Cardiovascular-regular rate and rhythm without murmur or ectopy Lungs-clear to auscultation, chest wall stable without crepitus or subcu emphysema Abdomen-normoactive bowel sounds, soft, nontender, no rebound or rigidity, no peritoneal signs. Extremities-intact ?4, normal range of motion, normal pulses. Patient has multiple superficial linear lacerations to both forearms.] Test Results: [CBC with differential obtained showed a white blood cell count of 12.5, hemoglobin 13.6, hematocrit 39, platelets 244. Chemistries show sodium 138, potassium 3.0, chloride 107, CO2 23, BUN 9, creatinine 0.72, glucose 78. hCG was negative.] Emergency Department Course and Treatment: [] Treatment Plan: [] Disposition: [] Impression: [] This note was generated with [employer] software. It may contain incorrect words, spelling, and punctuation that were not noted in review of the chart prior to signing ED Disposition - Plan for ED Patient: Referrals: Care Physician,No Primary [Primary Care Provider] -
[2019-06-20 16:26] LABS: Amphetamine Urine VISTA POSITIVE (<1000 ng/mL); Barbiturate Urine VISTA NEGATIVE (< 200 ng/mL); Benzodiazepine Urine VISTA NEGATIVE (< 200 ng/mL); Cocaine Urine VISTA NEGATIVE (< 300 ng/mL); Ecstacy Urine VISTA NEGATIVE (< 500 ng/mL); Methadone Urine VISTA NEGATIVE (< 300 ng/mL); PCP Urine VISTA NEGATIVE (< 25 ng/mL); THC Urine VISTA NEGATIVE (< 50 ng/mL); Vista UDS pH Range 5
[2019-06-20] MEDS: LORazepam 1 MG Tablet PO (16:34)
--- NOTE | 2019-06-20 16:39 | ED.RN ---
pt was unable to swallow the second potassium tablet, pt spit it out, another tablet was pulled from accudose to have pt attempt again. again pt was unable to swallow second pill.
--- NOTE | 2019-06-20 17:21 | CM.ED ---
Social Work Patient medically cleared per doctor. Telephone call to [facility], they accepted patient insurance and have open beds. Clinical information faxed. Pending approval. Filemon GILLESPIE, MARCELA
[2019-06-20] MEDS: Ziprasidone IM 20 MG/ML VIAL IM (17:31)
[2019-06-20 19:01] VITALS: BP 102/63; PULSE 77; RESP 13; O2SAT 99
--- NOTE | 2019-06-20 19:07 | CM.ED ---
Social Work Telephone call to [facility] to follow-up with referral. Pending approval. Still being reviewed. Filemon Stanton MSW, MARCELA
--- NOTE | 2019-06-20 20:19 | EKG12_ITS ---
Test Reason : MHC Blood Pressure : / mmHG Vent. Rate : 075 BPM Atrial Rate : 075 BPM P-R Int : 134 ms QRS Dur : 100 ms QT Int : 420 ms P-R-T Axes : 059 060 042 degrees QTc Int : 469 ms Normal sinus rhythm Normal ECG Confirmed by DERRICK LUTZ, TOBI ([id number]), editor book MISAEL VALENCIA ([id number]) on 06/22/2019 1:20:13 PM Referred By: LLOYD LAM/FAUSTINO Confirmed By:STEVEN MEZA MD
[2019-06-20 20:24] VITALS: BP 110/73; PULSE 74; RESP 16; O2SAT 100
--- NOTE | 2019-06-20 20:58 | ED.RN ---
2023 : vitals obtained. pt is resting quietly. respirations even and unlabored. sitter at bedside. will continue to monitor.
--- NOTE | 2019-06-20 21:52 | CM.ED ---
Social Work Telephone call from [facility]. Patient has been accepted. Dr. Acevedo is accepting. Nurse to nurse: [phone]. Patient admitting to [address] [place] [address]. Updated medical team on plan. All agreeable. Filemon GILLESPIE, MARCELA
[2019-06-21] VITALS (9 sets, daily range): BP systolic 119–130; BP diastolic 64–78; PULSE 81–98; RESP 14–19; TEMP 36.7; O2SAT 97–99
--- NOTE | 2019-06-21 03:16 | ED.RN ---
PT REQUESTING TO BE PERMITTED TO LEAVE THE FACILITY TO RETRIEVE PERSONAL BELONGINGS. PT INFORMED SHE IS NOT PERMITTED TO LEAVE. MALE VISITOR IN THE ROOM AND THE PT BEGAN ARGUING AND CURSING AT EACH OTHER AND STAFF. MALE VISITOR ASKED TO LEAVE. VISITOR COMPLIED. PT CONTINUING TO CURSE AND GETTING MORE AGITATED ABOUT NOT GETTING HER PERSONAL BELONGINGS
== END 2019-06-21 10:19 ==
PROVIDERS: Emergency Provider Emergency Medicine
DX: F32.9 Major depressive disorder, single episode, unspecified (principal); R45.851 Suicidal ideations; S11.91XA Laceration without foreign body of unspecified part of neck, initial encounter; S51.812A Laceration without foreign body of left forearm, initial encounter; S51.811A Laceration without foreign body of right forearm, initial encounter; X78.8XXA Intentional self-harm by other sharp object, initial encounter; Y93.9 Activity, unspecified; Y92.9 Unspecified place or not applicable; F31.9 Bipolar disorder, unspecified; Z91.14 Patient's other noncompliance with medication regimen; Z72.0 Tobacco use
CPT/HCPCS: 80048; 80307; 80320; 84703; 85025; 93005; 96372; 99285; G0480; J3486

== ENCOUNTER 2019-07-10 22:50 | Emergency (ER) | payer MEDICAID, SELFPAY ==
[2019-07-10 22:51] VITALS: PULSE 92; RESP 16; TEMP 36.7; O2SAT 98; BMI 21.4
--- NOTE | 2019-07-10 23:04 | ED.VIS.GEN ---
History of Present Illness Chief Complaint: Wound Narrative: Patient is a 23-year-old female who presents with a rash. She noticed red spots on her hand some of which have developed into a more blisterlike lesion. She also complains of some oral pain. No fevers nausea vomiting diarrhea chest pain shortness of breath. No history of similar symptoms. She denies IV drug use. She denies medical history. She also complains of some dry irritated skin on the backs of her hands but she has been obsessively washing her hands as she was concerned of the rash on her palms may be due to an infection. Past Medical History - Allergies and Home Meds Allergies/Adverse Reactions: Allergies No Known Allergies Allergy (Verified 03/19/19 15:49) Primary Care Physician: Jamshid Man MD [Primary Care Provider] - Past Medical History: None Smoking Status: Current every day smoker Review of Systems All systems negative except as indicated General: Denies: Fever ENT: Reports: - - Oral pain Gastrointestinal: Denies: Nausea, Vomiting, Diarrhea Musculoskeletal: Denies: Myalgias, Arthralgias Skin: Reports: Rash Neurological: Denies: Headache Physical Exam Vital Signs/Narrative: Vital Signs Temp Pulse Resp Pulse Ox 07/10/19 22:51 98.0 F 92 16 98 Inital Vital Signs reviewed: Yes General: Well nourished Head: Normocephalic Eyes: EOMI ENT: Moist mucous membranes, - - Oropharynx clear Neck: Supple Cardiovascular: Regular rate, Regular rhythm Respiratory: No distress, CTA bilaterally Abdomen: Soft Skin: - - Patient has multiple small erythematous papular lesions on the palms and back of the hands. There are a few vesicular lesions. No petechiae or purpura noted no splinter hemorrhages Neurological: Alert Psychological: Normal affect Diagnostic/Tx/Re-eval - Medical Decision Making Patient's presentation is most suggestive of sxzj-vsxa-obe-mouth disease. Patient advised on supportive care. She was discharged home. ED Disposition - Plan for ED Patient: Disposition: Home or Assisted Living Diagnosis: Hand, foot and mouth disease Instructions: HAND FOOT MOUTH DISEASE (Child) Referrals: Jamshid Man MD [Primary Care Provider] -
== END 2019-07-10 23:19 | disposition home or self-care (01) ==
PROVIDERS: Emergency Provider Emergency Medicine; Family Provider Family Medicine; PCP Family Medicine
DX: B08.4 Enteroviral vesicular stomatitis with exanthem (principal); F17.200 Nicotine dependence, unspecified, uncomplicated
CPT/HCPCS: 99282

== ENCOUNTER 2019-10-15 10:17 | Emergency (ER) | payer MEDICAID, SELFPAY ==
[2019-10-15 10:18] VITALS: BP 132/74; PULSE 108; RESP 17; TEMP 36.6; O2SAT 98; BMI 25.3
--- NOTE | 2019-10-15 10:28 | ED.VIS.GEN ---
History of Present Illness Chief Complaint: Complaint Detail of Chief Complaint: Dysuria and frequency for 1 week Informant: Patient Onset: Weeks Context: Sudden Onset Timing: Intermittent Quality: Burning with urination Location: During urination Current Severity: - - Absent Maximum Severity: Moderate Worsened by: Urination Relieved by: Nothing Associated Symptoms: Abnormal vaginal bleeding Narrative: Is a 23-year-old who presents with urinary symptoms that started 1 week ago. She denies low back or flank pain. She denies nausea or vomiting. She denies symptoms of . She states her last menses was not normal. She states she is had 2 episodes of vaginal bleeding this month. She did discontinue her control pill because of discomfort. She resumed taking her control pills. She states she discontinued last week because of pain again. She denies pain referred her shoulder. She denies orthostatic symptoms. She has no other complaints. Prior similar symptoms: Yes - UTI Recent Illness/Hospitalization: No - Past Medical History (1) No significant past medical history Status: Acute Past Medical History - Allergies and Home Meds Allergies/Adverse Reactions: Allergies No Known Allergies Allergy (Verified 10/15/19 10:18) Primary Care Physician: Jamshid Man MD [Primary Care Provider] - Prior records reviewed: Yes - Issues regarding post delivery complications Surgical History: noncontributory Lives: Spouse/ Significant Other Smoking Status: Current every day smoker Alcohol: Rare Drugs: None Review of Systems General: Denies: Chills, Fever, Subjective, Sweats Eyes: Denies: Visual changes - bilaterally, Blurred Vision - bilaterally ENT: Denies: Rhinorrhea, Sore throat Cardiovascular: Denies: Chest pain, Palpitations Respiratory: Denies: Dyspnea, Cough, Dyspnea on exertion Gastrointestinal: Reports: Abdominal pain. Denies: Nausea, Vomiting, Diarrhea, Constipation, Melena, Hematochezia Genitourinary: Reports: Dysuria, Frequency Musculoskeletal: Denies: Myalgias, Arthralgias, Neck pain, Back pain, Swelling, Extremity Pain Skin: Denies: Rash, Wounds Neurological: Denies: Headache, Weakness, Numbness Hematologic: Denies: Easy bruising, Easy bleeding Physical Exam Vital Signs/Narrative: Vital Signs Temp Pulse Resp BP Pulse Ox 10/15/19 10:18 97.9 F 108 H 17 132/74 H 98 Inital Vital Signs reviewed: Yes General: Well nourished, Well developed, No Acute Distress Head: Normocephalic, Atraumatic Eyes: Perrl, EOMI. Negative for: Pale conjunctiva, Scleral icterus ENT: Moist mucous membranes, No rhinorrhea Neck: Supple, Nontender Cardiovascular: Regular rate, Regular rhythm, No murmurs, Normal S1, Normal S2 Respiratory: No distress, CTA bilaterally, Chest nontender Abdomen: Soft, Nontender, Nondistended, Normal bowel sounds Rectal: Deferred Back: Nontender, Normal Inspection. Negative for: CVA tenderness Extremities: Nontender, No edema Skin: Normal color, No rash, No Trauma Neurological: Alert, Oriented x3, Cranial nerves II-XII grossly intact, Normal Strength, Normal Sensation Psychological: Normal affect, Normal Mood Diagnostic/Tx/Re-eval Laboratory Results 10/15/19 10/15/19 10:30 10:35 Serum , Qual NEGATIVE Urine Color Yellow Urine Clarity Cloudy Urine pH 6.0 Ur Specific [place] 1.025 Urine Protein 100 H Urine Glucose (UA) Normal Urine Ketones 5 H Urine Occult Blood 250 H Urine Nitrite Negative Urine Bilirubin Negative Urine Urobilinogen Normal Ur Leukocyte Esterase 500 H Urine RBC 0-5 SEEN Urine WBC >100 SEEN Ur Squamous Epith Cells 0 SEEN Urine Bacteria 0 SEEN Urine Mucus 0 SEEN Urine is suggestive of a urinary tract infection. Since patient has appropriate symptoms will treat with Macrobid. Serum test test is negative. Suspect patient's abnormal external bleeding is because of discontinuation of her control pills. - Medical Decision Making Resents with urinary symptoms. UA was ordered. Since she has had abnormal vaginal bleeding and has been inconsistent with taking her control pill and is sexually active will obtain serum quantitative level to evaluate for . Patient was informed of her lab results. She was treated with Macrobid. ED Disposition - Plan for ED Patient: Disposition: Home or Assisted Living Diagnosis: Acute cystitis, Abnormal vaginal bleeding Instructions: Bladder Infection, Female (Adult) Prescriptions: Nitrofurantoin Macrocrystals [Macrobid] 100 mg PO Q12 #10 cap Prescription Printed Phenazopyridine HCl [Pyridium] 200 mg PO TID #10 tab Prescription Printed Referrals: Jamshid Man MD [Primary Care Provider] - 3-5 Days if not improving
[2019-10-15 10:34] LABS: Bacteria 0 SEEN /hpf (None Seen); Mucous, Urine 0 SEEN /hpf (<or=2+); Squamous Epithelial Cells - UA 0 SEEN /hpf (5-10)
[2019-10-15 10:39] LABS: Color, Urine Yellow (Yellow); Glucose, Dipstick Normal (Normal); Ketone-Dipstick 5 mg/dl (Negative); Leukocyte Esterase-Dipstick 500 /ul (Negative); Nitrite-Dipstick Negative (Negative); Occult Blood-Urine 250 /ul (Negative); Protein-Dipstick 100 mg/dl (Negative); Specific Gravity, Urine 1.025 (1.002-1.030); Urine Bilirubin Dipstick Negative (Negative); Urine Clarity Cloudy (Clear); Urine Urobilinogen Normal (Normal)
[2019-10-15 10:47] LABS: White Blood Cells >100 SEEN /hpf (0-5)
[2019-10-15 10:48] LABS: Red Blood Cells-Urine 0-5 SEEN /hpf (0-5)
[2019-10-15 11:04] LABS: Internal QC Validated? YES +Cl - CLEAR BKGD; Pregnancy, Serum, hCG Quali. NEGATIVE Negative
[2019-10-15] MEDS: Phenazopyridine 95 MG Tablet 190 MG PO (11:24)
[2019-10-15] MEDS: Nitrofurantoin Macrocrystals 100 MG Capsule PO (11:24)
[2019-10-15 11:25] VITALS: RESP 17
== END 2019-10-15 11:26 | disposition home or self-care (01) ==
LOC: ED 11:20
PROVIDERS: Emergency Provider Emergency Medicine; PCP Family Medicine
DX: N30.00 Acute cystitis without hematuria (principal); N93.9 Abnormal uterine and vaginal bleeding, unspecified; Z79.3 Long term (current) use of hormonal contraceptives; Z91.14 Patient's other noncompliance with medication regimen; Z87.440 Personal history of urinary (tract) infections; F17.200 Nicotine dependence, unspecified, uncomplicated
CPT/HCPCS: 81001; 84703; 99283

== ENCOUNTER 2019-10-22 21:01 | Emergency (ER) | payer MEDICAID, SELFPAY ==
[2019-10-22 21:02] VITALS: BP 163/57; PULSE 105; RESP 16; TEMP 36.4; O2SAT 96; BMI 25.2
[2019-10-22 21:54] LABS: Mucous, Urine 0 SEEN /hpf (<or=2+)
[2019-10-22 21:56] LABS: Color, Urine Red (Yellow); Glucose, Dipstick Normal (Normal); Ketone-Dipstick Negative (Negative); Leukocyte Esterase-Dipstick Negative /ul (Negative); Nitrite-Dipstick Positive (Negative); Occult Blood-Urine 50 /ul (Negative); Protein-Dipstick 100 mg/dl (Negative); Urine Bilirubin Dipstick 6 mg/dL (Negative); Urine Clarity Clear (Clear); Urine Urobilinogen 4 mg/dl (Normal)
[2019-10-22 21:57] LABS: Internal QC Validated? YES +Cl - CLEAR BKGD; Pregnancy, Urine Negative Negative
[2019-10-22 22:01] LABS: White Blood Cells 5-10 SEEN /hpf (0-5)
[2019-10-22 22:02] LABS: Red Blood Cells-Urine 10-25 SEEN /hpf (0-5); Squamous Epithelial Cells - UA 0-5 SEEN /hpf (5-10)
[2019-10-22 22:06] LABS: Fine Granular Cast- Urine 5-10 SEEN /lpf (0-5)
[2019-10-22 22:07] LABS: Bacteria RARE /hpf (None Seen)
--- NOTE | 2019-10-23 00:27 | ED.VISSUMM ---
- ER Visit Summary Date of Service: 10/23/19 Chief Complaint: Dysuria History of Present Illness: The patient is a 24 F who presents with dysuria that began yesterday. Patient was recently treated for urinary tract infection with Macrobid. Patient states she has 1 dose of Macrobid left. Patient states she was getting better and then yesterday her symptoms started to return. Patient states her pain feels worse after she drinks soda. Patient describes it as burning. Patient states it feels similar to prior urinary tract infections. Patient states the pain does radiate into her low back. Patient denies any fevers or chills. Patient denies any nausea or vomiting. Patient does admit to urinary frequency. Physical Examination: Vital signs are stable. Patient is afebrile. Patient is in no acute distress. Oral mucosa is pink and moist. Neck is supple. Trachea is midline. There is no JVD noted. Heart was regular rate and rhythm. Lungs are clear and equal bilaterally. Abdomen is soft. Bowel sounds are normal. There is no tenderness. There is no rebound or guarding noted. Skin is warm dry. Cranial nerves II through XII are intact. There are no focal motor or sensory deficits noted. Extremities are intact. There is no calf tenderness or edema. Test Results: Urinalysis was obtained. Nitrates were positive. There were 5-10 white blood cells and 0-5 epithelial cells. There are rare bacteria. Occult blood was 50 with 10-25 red blood cells. Urine culture was sent. Emergency Department Course and Treatment: Patient left the emergency department prior to receiving her results and medications. Patient states she did not want to wait any longer. Patient was encouraged to follow-up with her primary care physician. Disposition: Eloped prior to discharge Impression: Dysuria This note was generated with [employer] dictation software. It may contain incorrect words, spelling, and punctuation that were not noted in review of the chart prior to signing ED Disposition - Plan for ED Patient: Disposition: Home or Assisted Living Diagnosis: Dysuria Referrals: Jamshid Man MD [Primary Care Provider] -
== END 2019-10-22 22:05 | disposition home or self-care (01) ==
LOC: ED 22:16
PROVIDERS: Emergency Provider Emergency Medicine; PCP Family Medicine
DX: R30.0 Dysuria (principal); R35.0 Frequency of micturition; M54.5 Low back pain; R51 Headache; Z87.440 Personal history of urinary (tract) infections; F17.200 Nicotine dependence, unspecified, uncomplicated
CPT/HCPCS: 81001; 81025; 87086; 87088; 99282

== ENCOUNTER 2019-10-23 22:24 | Emergency (ER) | payer MEDICAID, SELFPAY ==
[2019-10-22 21:02] VITALS: BMI 25.2
[2019-10-23 22:25] VITALS: BP 146/86; PULSE 94; RESP 16; TEMP 37.2; O2SAT 97; BMI 24.6
--- NOTE | 2019-10-23 22:40 | ED.VIS.GEN ---
History of Present Illness Chief Complaint: Complaint Narrative: Patient presenting for evaluation due to urinary symptoms. Patient reports that she has been having dysuria and suprapubic pain over the course of about the last 5 days. She was in the emergency department on the and was diagnosed with a urinary tract infection and was sent home with Pyridium and Macrobid. She reports that she took the medications as prescribed, and finished her complete dose of Macrobid. Patient states that she had maybe 1 or so days of improvement of symptoms, and then redeveloped burning with urination. Patient denies any fevers or flank pain associated with this. She denies any vaginal bleeding or discharge. No exacerbating relieving factors. Patient was here yesterday, provided a urine sample, but was unable to stay for the results. Past Medical History - Allergies and Home Meds Allergies/Adverse Reactions: Allergies No Known Allergies Allergy (Verified 10/23/19 22:27) Primary Care Physician: Jamshid Man MD [Primary Care Provider] - Past Medical History: - - Noncontributory Surgical History: noncontributory Smoking Status: Current every day smoker Review of Systems All systems negative except as indicated General: Denies: Chills, Fever, Sweats Eyes: Denies: Visual changes - bilaterally, Diplopia ENT: Denies: Rhinorrhea, Sore throat Cardiovascular: Denies: Chest pain, Palpitations Respiratory: Denies: Dyspnea, Cough, Dyspnea on exertion Gastrointestinal: Denies: Abdominal pain, Nausea, Vomiting, Diarrhea, Melena, Hematochezia Genitourinary: Reports: Dysuria. Denies: Hematuria, Frequency Musculoskeletal: Denies: Back pain, Extremity Pain Skin: Denies: Rash, Wounds Neurological: Denies: Headache, Weakness, Numbness Physical Exam Vital Signs/Narrative: Vital Signs Temp Pulse Resp BP Pulse Ox 10/23/19 22:25 98.9 F 94 16 146/86 H 97 Inital Vital Signs reviewed: Yes General: Well nourished, Well developed, No Acute Distress Head: Normocephalic, Atraumatic Eyes: Perrl, EOMI ENT: Moist mucous membranes, No rhinorrhea Neck: Supple, Nontender Cardiovascular: Regular rate, Regular rhythm, No murmurs Respiratory: No distress, CTA bilaterally, Chest nontender Abdomen: Soft, Nondistended, Normal bowel sounds, Tender - Suprapubic tenderness without guarding or rebound Back: Nontender, Normal Inspection Extremities: Nontender, No edema Skin: Normal color, No rash Neurological: Alert, Oriented x3, Cranial nerves II-XII grossly intact, Normal Strength, Normal Sensation Psychological: Normal affect, Normal Mood Diagnostic/Tx/Re-eval - Medical Decision Making Patient presented with UTI-like symptoms. She does not have any evidence of systemic infection or pyelonephritis. I reviewed her urine from yesterday, it shows elevated white blood cells and nitrite positive urine. Patient's urine was cultured yesterday, I will send an additional culture today. Patient will be treated with a course of Bactrim and Pyridium. She will follow-up with primary care. ED Disposition - Plan for ED Patient: Disposition: Home or Assisted Living Diagnosis: Urinary tract infection Instructions: Bladder Infection, Female (Adult) Prescriptions: Smz/Tmp Ds [Bactrim Ds] 1 tab PO BID #14 tab Prescription Printed Phenazopyridine HCl [Pyridium] 200 mg PO BID PRN PRN #10 tab PRN Reason: Pain Prescription Printed Referrals: Jamshid Man MD [Primary Care Provider] - 3-5 Days
[2019-10-23] MEDS: Smz/Tmp Ds Tablet 1 TABLET PO (22:52)
[2019-10-23] MEDS: Phenazopyridine 95 MG Tablet 190 MG PO (22:52)
== END 2019-10-23 22:59 | disposition home or self-care (01) ==
PROVIDERS: Emergency Provider Emergency Medicine; PCP Family Medicine
DX: N39.0 Urinary tract infection, site not specified (principal); Z87.440 Personal history of urinary (tract) infections; F17.200 Nicotine dependence, unspecified, uncomplicated
CPT/HCPCS: 87077; 87086; 87088; 87186; 99283

== ENCOUNTER 2019-11-04 08:20 | Emergency (ER) | payer MEDICAID, SELFPAY ==
[2019-11-04 08:21] VITALS: BP 143/103; PULSE 134; RESP 18; TEMP 36.8; O2SAT 99; BMI 21.0
--- NOTE | 2019-11-04 08:38 | ED.VIS.GEN ---
History of Present Illness Chief Complaint: Mental Health Informant: Patient Onset: Today Maximum Severity: Mild Narrative: Patient indicates self-harm by cutting both wrists this morning, she has history of same history of anxiety history of depression. Indicates she and her spouse were using cocaine for days she got very anxious about all the above and began cutting her wrists with glass, her family found out about the above paramedics were called and she was brought in, her tetanus is not up-to-date, she is seen by the counseling center, she denies head neck chest or abdominal pain or any past history Past Medical History - Allergies and Home Meds Allergies/Adverse Reactions: Allergies No Known Allergies Allergy (Verified 11/04/19 08:23) Primary Care Physician: Jamshid Man MD [Primary Care Provider] - Past Medical History: - Surgical History: noncontributory Smoking Status: Current every day smoker Review of Systems ROS: - As above General: Denies: Chills, Fever, Sweats Eyes: Denies: Visual changes - bilaterally, Diplopia ENT: Denies: Rhinorrhea, Sore throat Cardiovascular: Denies: Chest pain, Palpitations Respiratory: Denies: Dyspnea, Cough, Dyspnea on exertion Gastrointestinal: Denies: Abdominal pain, Nausea, Vomiting, Diarrhea, Melena, Hematochezia Genitourinary: Denies: Dysuria, Hematuria, Frequency Musculoskeletal: Reports: Extremity Pain. Denies: Back pain Skin: Denies: Rash, Wounds Neurological: Denies: Headache, Weakness, Numbness Physical Exam Vital Signs/Narrative: Vital Signs Temp Pulse Resp BP Pulse Ox 11/04/19 08:21 98.2 F 134 H 18 143/103 H 99 General: Well nourished, Well developed, No Acute Distress Head: Normocephalic, Atraumatic Eyes: Perrl, EOMI ENT: Moist mucous membranes, No rhinorrhea Neck: Supple, Nontender Cardiovascular: Regular rate, Regular rhythm, No murmurs Respiratory: No distress, CTA bilaterally, Chest nontender Abdomen: Soft, Nontender, Nondistended, Normal bowel sounds Back: Nontender, Normal Inspection Extremities: No edema, - - She has very thin lacerations to both the right wrist region left wrist region, on the left wrist region there is a horizontal 2 cm laceration that barely breaks the skin surface her tendon function neurovascular function is normal no bleeding, both wrists were was sterilely prepped, the left wrist was sterilely prepped the small superficial laceration was examined there was no signs of foreign body she denies any chance of foreign body as she used a sharp glass edge, the area was sterilely prepped and then closed with glue with good results her neurovascular function is normal Skin: Normal color, No rash Neurological: Alert, Oriented x3, Cranial nerves II-XII grossly intact, Normal Strength, Normal Sensation Psychological: Depressed Diagnostic/Tx/Re-eval - Medical Decision Making Is undergone wound care, tetanus update, x-ray of left wrist, mental health evaluation is pending they will determine final disposition Disposition pending mental health evaluation Final impression depression with self-harm self-inflicted bilateral wrist lacerations, 2 cm left wrist laceration, mental health evaluation ED Disposition - Plan for ED Patient: Referrals: Jamshid Man MD [Primary Care Provider] -
--- NOTE | 2019-11-04 08:41 | RAD_ITS ---
STUDY: X-RAY - LEFT WRIST REASON FOR EXAM: Female, 24 years old. Patient tried to cut wrist with glass TECHNIQUE: 3 view(s) of the wrist were obtained. COMPARISON: None. FINDINGS: Normal visualized distal radius and ulna. Normal radiocarpal articulation. Normal distal radioulnar articulation. Normal carpal bones. Normal carpal articulations. Normal carpometacarpal articulation of the thumb. Normal second through fifth carpometacarpal articulations. Normal visualized metacarpal bones. The soft tissue structures are unremarkable. No radiopaque foreign body is identified. RAD/Wrist min 3 Views IMPRESSION: Normal x-ray examination of the wrist. Electronically Signed: Pancho Sandhu DO at 9:44 EDT Tel [phone], Service support ,
[2019-11-04 08:48] LABS: Absolute Lymphocyte Count 3.22 X10^3/uL (0.83-4.51); Absolute Neutrophil Count 6.5 X10^3/uL (2.0-7.7); Basophil# 0.04 X10^3/uL; Basophil% 0.4 % (0-1); Eosinophil# 0.09 X10^3/uL; Eosinophils% 0.9 % (0-5); Hematocrit 37.9 % (37-47); Hemoglobin 12.8 g/dL (12.0-15.0); Lymphocyte # 3.22 X10^3/ul (4.0); Lymphocyte % 30.5 % (19-41); Mean Corp Hgb Conc 33.8 g/dL (32-36); Mean Corpuscular Hgb 30.5 pg (27.0-32.0); Mean Corpuscular Volume 90.2 fL (81-99); Mean Platelet Vol. 8.9 fl (6.2-12.0); Monocyte# 0.73 X10^3/uL; Monocyte% 6.9 % (0-10); NRBC Flagged by Analyzer 0 % (0-5); Neutrophil # 6.46 X10^3/uL (2.7-7.7); Neutrophil % 61.1 % (47-70); Platelet Count 271 K/mm3 (150-450); RBC Distribution Width SD 39.3 fl (35.1-43.9); White Blood Count 10.6 K/mm3 (4.4-11.0)
[2019-11-04] MEDS: Acetaminophen 500 MG Tablet 1000 MG PO (08:50)
[2019-11-04 09:04] LABS: Internal QC Validated? YES +Cl - CLEAR BKGD; Pregnancy, Serum, hCG Quali. NEGATIVE Negative
[2019-11-04 09:06] LABS: Amphetamine Urine VISTA POSITIVE (<1000 ng/mL); Barbiturate Urine VISTA NEGATIVE (< 200 ng/mL); Benzodiazepine Urine VISTA NEGATIVE (< 200 ng/mL); Cocaine Urine VISTA NEGATIVE (< 300 ng/mL); Ecstacy Urine VISTA NEGATIVE (< 500 ng/mL); Methadone Urine VISTA NEGATIVE (< 300 ng/mL); PCP Urine VISTA NEGATIVE (< 25 ng/mL); THC Urine VISTA NEGATIVE (< 50 ng/mL); Vista UDS pH Range 6
[2019-11-04 09:08] LABS: Anion Gap 3 (5-15); BUN 15 mg/dL (7-18); Calcium,Total 8.7 mg/dL (8.5-10.1); Chloride 112 mmol/L (98-107); Creatinine, Serum 0.83 mg/dL (0.55-1.02); EST Glomerular Filtration Rate 91 mL/min (>60); Est Glom Filt Rate - Afr Amer 110 mL/min (>60); Estimated Creatinine Clearance 99.43 ml/min; Glucose 98 mg/dL (74-106); Potassium 3.1 mmol/L (3.5-5.1); Sodium Level 141 mmol/L (136-145)
[2019-11-04 09:24] LABS: Alcohol, Blood (Medical)-Serum < 3.0 mg/dL
[2019-11-04 10:52] VITALS: RESP 14
[2019-11-04] MEDS: LORazepam 1 MG Tablet PO (12:45)
--- NOTE | 2019-11-04 12:47 | ED.RN ---
PT OBSERVED REMOVING HOSPITAL GOWN, PUTTING ON STREET CLOTHES. ALL CLOTHING REMOVED FROM ROOM, PT BACK IN GOWN. PT VERBALIZES UNDERSTANDING OF BEING PINK SLIPPED.
--- NOTE | 2019-11-04 13:35 | ED.RN ---
STRONG ODOR OF SMOKE NOTED IN BATHROOM AFTER PT USED. PT ADAMANTLY DENIES SMOKING. HAND COMPOSITOR FOUND IN PT'S SOCK. HAND COMPOSITOR REMOVED FROM ROOM, PLACED WITH PT'S BELONGINGS.
[2019-11-04 14:00] VITALS: PULSE 97; RESP 16; O2SAT 99
[2019-11-04 15:28] VITALS: BP 121/70; PULSE 91; RESP 16; O2SAT 98
[2019-11-04 15:34] VITALS: BP 121/70; PULSE 91; RESP 16; O2SAT 98
== END 2019-11-04 16:16 ==
PROVIDERS: Emergency Provider Emergency Medicine; PCP Family Medicine
DX: S61.512A Laceration without foreign body of left wrist, initial encounter (principal); S61.511A Laceration without foreign body of right wrist, initial encounter; X78.0XXA Intentional self-harm by sharp glass, initial encounter; Y93.9 Activity, unspecified; Y92.9 Unspecified place or not applicable; F32.9 Major depressive disorder, single episode, unspecified; F41.9 Anxiety disorder, unspecified; F17.200 Nicotine dependence, unspecified, uncomplicated; F14.90 Cocaine use, unspecified, uncomplicated
CPT/HCPCS: 73110; 80048; 80307; 80320; 84703; 85025; 90715; 99285; A4216; G0480